=== PATIENT | male | born 1985 | race Caucasian/White ===

== ENCOUNTER 2020-02-09 20:31 | Emergency (ER) | payer MEDICAID, SELFPAY | END 2020-02-09 22:35 | PROVIDERS: PCP Internal Medicine | DX: Z53.21 Procedure and treatment not carried out due to patient leaving prior to being seen by health care provider (principal) ==

== ENCOUNTER 2020-02-17 14:58 | Emergency (ER) | payer MEDICAID, SELFPAY ==
[2020-02-17 15:04] VITALS: BP 133/95; PULSE 109; RESP 20; TEMP 36.6; O2SAT 97
--- NOTE | 2020-02-17 15:38 | DI.RAD_ITS ---
EXAM: XR PORTABLE CHEST AP CLINICAL HISTORY: cough x 3 months. TECHNIQUE: 2D digital imaging was performed. COMPARISON: No exams were available for comparison FINDINGS: LUNGS: Clear. No pleural abnormality seen. HEART: Normal. MEDIASTINUM: Normal. OTHER FINDINGS: None. IMPRESSION: No acute pulmonary findings. DATA REPOSITORY: RADIATION DOSE DELIVERED: Total DLP
--- NOTE | 2020-02-17 15:49 | ED.GENADUL_ITS ---
Discharge Plan Disposition Patient Disposition: AGAINST MEDICAL ADVICE Discharge Details Clinical Impression: Cough Primary Care Provider: Parag Farfan ED Provider: Qing Giron Home Meds and New Rx's Prescriptions: No Action No Known Home Meds RF: 0 Discharge Instructions Instructions: Acute Cough (ED) Additional Instructions: You are choosing to leave prior to completion of your labs. In particular, your provider, was concerned for potential pulmonary embolism based on your history and vital signs. This is pending. This can be a life-threatening etiology. A lso concern is that she will have an acute kidney injury which is changed from her baseline. Should be evaluated further. You may return anytime if you develop worsening symptoms or wish for completion of care. Otherwise, please follow-up with primary care as soon as possible to discuss results and for continued management Referrals: Parag Farfan MD [Primary Care Provider] - Discharge Data Discharge Date/Time-TO BE ENTERED AT DEPARTURE: 02/17/20 16:50 Medical Decision Making <INA Rader - Last Filed: 02/18/20 16:08> 34-year-old gentleman who denies past medical history presents to the ER for 3- month history of cough. Cough is mild in nature. During my evaluation he did clear his throat multiple times. He reports that the symptoms are worse if he is outside or in the cold. He does describe a mild amount of postnasal drip. Has not tried any gabv-ict-ceornuk medications. I believe this very well may be a mild cough reflex from postnasal drip, examination is not consistent with bronchitis or pneumonia. Given he does continue to have mild tachycardia I do believe that obtaining CBC, CMP and a d-dimer is reasonable to rule out infectious process and/or PE. Will obtain chest x-ray and COVID Chest x-ray is unremarkable. At time of signout CBC, CMP, d-dimer pending. I believe if his work-up is unremarkable that a trial of Claritin-D would be reasonable for symptomatic control. Medical Records Medical records reviewed: Yes I reviewed the patient's medical records. Imaging Data Radiologic Study: Attestation: I personally reviewed and interpreted this imaging study as follows: Imaging: X-Ray Radiologist's impression: Chest x-ray negative Lab Data Lab results reviewed: Yes I reviewed the patient's lab results. <INA Pino - Last Filed: 02/17/20 16:51> Care transition myself from Rafita Dick PA-C, with labs pending. In brief, patient's had a cough since October. Than tobacco use, patient is otherwise healthy per report. Cough is been notably worse outside in the cold. He has 1- COVID-19 testing. Patient was noted to be tachycardic. There was therefore concerned that the patient may have a pulmonary embolism and labs were obtained. Prior to completion of labs, patient wanted to leave AMA. He does have mental capacity. Just prior to him leaving the department, some of his blood work did come back. Patient does have a normal CBC. However I am concerned that his creatinine is 1.61 which is notably elevated from his previous findings. P missy is refusing any further care. D-dimer is pending. Patient is leaving the department AGAINST MEDICAL ADVICE. We did discuss the concern associated with his acute kidney injury. Patient was also advised that he needs to quarantine and he was tested today for COVID-19. We did offer patient to help establish new primary care and he laughed. Patient also left at the recommendation to quarantine. We did discuss quarantine potential risk associated with not completing this. HPI <INA Rader - Last Filed: 02/18/20 16:08> General Mode of arrival: ambulatory . Date/Time Provider Initiated Documentation: 02/17/20 14:58 . Limitations to Documentation: no limitations . Information obtained by: patient . HPI Narrative: This is a 34-year-old gentleman, no significant past medical history, does chew tobacco. He presents to the ER now for 3-month history of a mild dry cough that is simply not getting better with [id number]-[id number] medication. He denies fever, recent travel, sick exposure, chest pain, shortness of breath, skin rash, abdominal pain, nausea, vomiting, pain or swelling in his calves. He was tested for COVID in October and was negative. He reports that the cough seems to be worse in cooler weather or when he is outside. Denies ear pain, or nasal congestion. He does report sometimes he has a small and a phlegm in his throat that needs to be cleared. Related Data Home Medications Medication Instructions Recorded Confirmed Unknown [No Known Home Meds] 02/17/20 02/17/20 Allergies Allergy/AdvReac Type Severity Reaction Status Date / Time No Known Allergies Allergy Unverified 02/17/20 15:06 General Stated Complaint: RespSymp DAVID: 4 Review of Systems <INA Rader - Last Filed: 02/18/20 16:08> Constitutional Constitutional: Denies fatigue, Denies fever(s) and Denies headache(s) Eyes Eyes: Denies eye discharge ENT Ears, Nose, Mouth, and Throat: Denies headache(s), Denies nasal discharge and Denies sore throat Cardiovascular Cardiovascular: Denies chest pain and Denies dyspnea Respiratory Respiratory: Reports cough, Denies dyspnea and Denies wheezing Gastrointestinal Gastrointestinal: Denies abdominal pain, Denies nausea and Denies vomiting Musculoskeletal Musculoskeletal: Denies back pain Integumentary/Breasts Skin/Breast: Denies rash Neurologic Neurologic: Denies headache(s) Endocrine Endocrine: Denies fatigue Allergic/Immunologic Allergic/Immunologic: Denies wheezing PFSH <INA Rader - Last Filed: 02/18/20 16:08> Social History Smoking/Tobacco Use Status: Current every day Tobacco Type: smokeless tobacco Alcohol Intake: current Alcohol Intake frequency: a few times a month Drug use: Never Substance use type: does not use Do you feel safe at home: Yes Do you feel safe in your relationship?: Yes Exam <INA Rader - Last Filed: 02/18/20 16:08> Const General: cooperative, healthy appearing, comfortable and no acute distress Orientation: alert, awake and oriented x3 HENMT Head: normal to inspection, normocephalic and atraumatic Ears: external ears normal, TM's normal bilaterally and EAC's normal General nose exam: external nose normal and nares normal Face and sinus: normal facial exam Mouth: moist mucous membranes Throat: posterior oropharynx normal Eyes General: appearance normal, both eyes and all related structures Alignment and Position: alignment normal Periorbital: periorbital findings normal Eyelids: eyelids normal Conjunctivae: conjunctivae normal Sclera: sclerae normal Cornea: corneas normal Pupils: PERRL EOM: EOM intact bilaterally Direct ophthalmoscopy: normal light reflex Neck Neck: normal visual inspection, full ROM, no lymphadenopathy, no meningeal signs, trachea midline, supple and nontender Resp Effort & Inspection: normal respiratory effort, able to speak in complete sentences and cough Quality of cough: dry Auscultation: clear to auscultation bilaterally Cardio Rate: tachycardic (107) Rhythm: regular rhythm GI Palpation: soft and nontender Back/Spine/Pelvis Back: No back tenderness Skin General skin exam: no rashes or lesions noted Neuro General: patient alert, patient awake, moves all extremities and no focal motor deficits Sensory Exam: no sensory deficits noted Extrem General: normal to inspection, full ROM, capillary refill normal, no pedal edema and no calf tenderness Psych Appearance: grossly normal Mental Status: mental status grossly normal Course <INA Rader - Last Filed: 02/18/20 16:08> Vital Signs Vital signs: Vital Signs Temperature 36.6 C 02/17/20 15:04 Pulse 109 H 02/17/20 15:04 Respiratory Rate 20 02/17/20 15:04 Blood Pressure 133/95 H 02/17/20 15:04 Pulse Oximetry 97 02/17/20 15:04 Temperature 36.6 C 02/17/20 15:04 Temperature Source Oral 02/17/20 15:04 Pulse 109 H 02/17/20 15:04 Respiratory Rate 20 02/17/20 15:04 Respiratory Effort Non-Labored 02/17/20 15:08 Respiratory Depth Normal 02/17/20 15:08 Blood Pressure 133/95 H 02/17/20 15:04 Blood Pressure Position Sitting 02/17/20 15:04 Pulse Oximetry 97 02/17/20 15:04 Oxygen Delivery Method Room Air 02/17/20 15:04 Oxygen Flow Rate 0 02/17/20 15:04 Pain Level 0 02/17/20 15:04 Sign Out <INA Rader - Last Filed: 02/18/20 16:08> Sign Out Data: Sign Out Comment: CBC, CMP, d-dimer pending Last updated by Son Dick PA at 02/17/20 15:57
[2020-02-17 16:14] LABS: Abs Immature Grans 0.04 10^3/uL (0.0-0.06); Absolute Basophil Count 0.04 10^3/uL (0.0-0.2); Absolute Eosinophil Count 0.08 10^3/uL (0.0-0.7); Absolute Lymphocyte Count 1.23 10^3/uL (1.2-3.4); Absolute Monocyte Count 0.36 10^3/uL (0.1-0.8); Absolute Neutrophil Count 4.34 10^3/uL (1.2-6.7); Basophils % 0.7; Eosinophils % 1.3; HCT 44.4 % (40.0-50.0); HGB 15.3 g/dL (13.5-17.5); Immature Grans % 0.7; Lymphocytes % 20.2; MCH 29.9 pg (27.0-33.0); MCHC 34.5 % (32.0-36.0); MCV 86.9 fL (80-95); MPV 9.8 fL (8.0-11.0); Monocytes % 5.9; Neutrophils % 71.2; Nucleated RBC 0 %; Platelet Count 241 10^3/uL (130-400); RBC 5.11 10^6/uL (4.36-5.78); RDW-SD 40.6 fL; WBC 6.09 10^3/uL (4.4-10.8)
[2020-02-17 16:27] LABS: ALT 43 U/L (16-63); AST 22 U/L (15-37); Alkaline Phosphatase 61 U/L (46-116); Anion Gap 4.8 mmol/L (3-11); BUN 15 mg/dL (7-18); Bilirubin, Total 0.5 mg/dL (0.2-1.0); CO2 29.2 mmol/L (21.0-32.0); CREATININE 1.61 mg/dL (0.70-1.30); Calcium 8.9 mg/dL (8.5-10.1); Chloride 101 mmol/L (98-107); Estimated GFR 49.98 (mL/min/1.73m2); Glucose 112 mg/dL (74-106); Potassium 3.5 mmol/L (3.5-5.1); Sodium 135 mmol/L (136-145); Total Protein 7.2 g/dL (6.4-8.2)
[2020-02-17 16:44] LABS: D-Dimer < 65 ng/mlFEU (<500)
[2020-02-19 13:49] LABS: Patient Race White; SARS-CoV-2 RNA Undetected (Undetected); SARS-CoV-2 Specimen Source Nasopharynx
== END 2020-02-17 16:50 | disposition left against medical advice (07) ==
PROVIDERS: Physician Assistant; Emergency Provider Physician Assistant; PCP Internal Medicine
DX: R05 Cough (principal); R94.4 Abnormal results of kidney function studies; Z53.29 Procedure and treatment not carried out because of patient's decision for other reasons; Z11.59 Encounter for screening for other viral diseases
CPT/HCPCS: 36415; 80053; 99284; U0003; 71045; 85025; 85379

== ENCOUNTER 2020-03-26 08:52 | Outpatient (REF) | payer MEDICAID, SELFPAY ==
[2020-03-26 21:16] LABS: ALT 57 U/L (16-63); AST 25 U/L (15-37); Albumin 4.6 g/dL (3.4-5.0); Alkaline Phosphatase 79 U/L (46-116); Anion Gap 6.8 mmol/L (3-11); BUN 14 mg/dL (7-18); Bilirubin, Total 0.8 mg/dL (0.2-1.0); CO2 33.2 mmol/L (21.0-32.0); CREATININE 1.09 mg/dL (0.70-1.30); Calcium 9.3 mg/dL (8.5-10.1); Calculated LDL 128 mg/dL (<100); Chloride 103 mmol/L (98-107); Cholesterol 197 mg/dL (<200); Glucose 95 mg/dL (74-106); HDL Cholesterol 39 mg/dL (40-60); Potassium 4.3 mmol/L (3.5-5.1); Sodium 143 mmol/L (136-145); Total Protein 7.8 g/dL (6.4-8.2); Triglyceride 150 mg/dL (<150)
== END 2020-03-26 09:12 ==
LOC: NCHCN 08:52
PROVIDERS: PCP Internal Medicine; Visit Provider Physician Assistant
DX: N28.9 Disorder of kidney and ureter, unspecified (principal); Z13.220 Encounter for screening for lipoid disorders
CPT/HCPCS: 80053; 80061

== ENCOUNTER 2020-04-30 20:20 | Emergency (ER) | payer MEDICAID, SELFPAY ==
[2020-04-30 20:26] VITALS: BP 157/101; PULSE 110; RESP 18; TEMP 35.7; O2SAT 97
--- NOTE | 2020-04-30 20:34 | DI.RAD_ITS ---
EXAM: XR PORTABLE CHEST AP CLINICAL HISTORY: cough TECHNIQUE: 2D digital imaging was performed. COMPARISON: CR XR PORTABLE CHEST AP from 02/17/2020 FINDINGS: MEDIASTINUM: Normal. HEART: Normal. PULMONARY VASCULATURE: Normal. LUNGS: Clear. PLEURAL SPACE: No pleural effusion or pneumothorax. BONE:Within normal limits for the patient's age. OTHER FINDINGS:Normal. IMPRESSION: No acute pulmonary findings. DATA REPOSITORY: RADIATION DOSE DELIVERED:
[2020-04-30] MEDS: Normal Saline 1,000 ML 1000 ML IV (20:57)
[2020-04-30 21:04] LABS: Abs Immature Grans 0.02 10^3/uL (0.0-0.06); Absolute Basophil Count 0.05 10^3/uL (0.0-0.2); Absolute Eosinophil Count 0.13 10^3/uL (0.0-0.7); Absolute Lymphocyte Count 1.92 10^3/uL (1.2-3.4); Absolute Monocyte Count 0.45 10^3/uL (0.1-0.8); Absolute Neutrophil Count 4.86 10^3/uL (1.2-6.7); Basophils % 0.7; Eosinophils % 1.7; HCT 44.8 % (40.0-50.0); HGB 15.5 g/dL (13.5-17.5); Immature Grans % 0.3; Lymphocytes % 25.8; MCH 30.2 pg (27.0-33.0); MCHC 34.6 % (32.0-36.0); MCV 87.3 fL (80-95); MPV 10.7 fL (8.0-11.0); Monocytes % 6.1; Neutrophils % 65.4; Nucleated RBC 0 %; Platelet Count 245 10^3/uL (130-400); RBC 5.13 10^6/uL (4.36-5.78); RDW 12.5 % (11.8-14.1); RDW-SD 39.9 fL; WBC 7.43 10^3/uL (4.4-10.8)
[2020-04-30 21:18] LABS: ALT 34 U/L (16-63); AST 21 U/L (15-37); Albumin 4.4 g/dL (3.4-5.0); Alkaline Phosphatase 81 U/L (46-116); Anion Gap 10.4 mmol/L (3-11); BUN 15 mg/dL (7-18); Bilirubin, Total 0.5 mg/dL (0.2-1.0); CO2 27.6 mmol/L (21.0-32.0); CREATININE 1.26 mg/dL (0.70-1.30); Calcium 9.4 mg/dL (8.5-10.1); Chloride 102 mmol/L (98-107); Glucose 123 mg/dL (74-106); Potassium 3.2 mmol/L (3.5-5.1); Sodium 140 mmol/L (136-145); Total Protein 7.7 g/dL (6.4-8.2)
--- NOTE | 2020-04-30 21:20 | ED.GENADUL_ITS ---
Discharge Plan Disposition Patient Disposition: HOME Condition: Stable Discharge Details Clinical Impression: Post-viral cough syndrome Primary Care Provider: None,None ED Provider: Gwen Singh Home Meds and New Rx's Prescriptions: No Action budesonide-formoterol [Symbicort] 80-4.5 mcg/actuation Hfa Aerosol Inhaler 2 puff INHALATION BID RF: 0 Discharge Instructions Instructions: Acute Cough (ED) Additional Instructions: continue medications as directed drink at least 6-8 glasses of water to stay well hydrated follow up with pcp Sunday morning for recheck. Medical Decision Making IV established, given a liter of NS cxr, cmp, cbc ddimer, bnp sent. patient in no respiratory distress and hemodynamically stable, oxygenating well on room air, non toxic appearing Medical Records Medical records reviewed: Yes I reviewed the patient's medical records. Medical records narrative: Patient Name: NOELLE ESQUEDA #: [id number]: ER Ordering Provider: : REG ER Primary Care Provider: None,NoneDate of Exam: 04/30/20ex: M : 1985Age: 34 Exam(s) PROCEDURE INFORMATION: Exam: XR Chest, 1 View Exam date and time: 04/30/2020 8:51 PM Age: 34 years old Clinical indication: Other: Cough TECHNIQUE: Imaging protocol: XR of the chest Views: 1 view. COMPARISON: CR XR PORTABLE CHEST AP 02/17/2020 3:23 PM FINDINGS: Lungs: Unremarkable. No consolidation. Pleural space: Unremarkable. No pleural effusion. No pneumothorax. Heart/Mediastinum: Unremarkable. No cardiomegaly. Bones/joints: Unremarkable. IMPRESSION: 1. No acute findings. 2. No infiltrates. 3. No pleural effusions. 4. Stable exam since 02/17/2020. Lab Data Lab results reviewed: Yes I reviewed the patient's lab results. HPI General Mode of arrival: ambulatory . Date/Time Provider Initiated Documentation: 04/30/20 20:31 . Limitations to Documentation: no limitations . Information obtained by: patient . HPI Narrative: Patient presents for evaluation of cough he has had for over 2 months per his report. He was seen here in the emergency department and he left prior to completion of his work-up but there was no evidence of pneumonia pulmonary embolism or acute pathology. He states he has had 3 - Covid test. He did establish with primary care provider and was started on Symbicort. He states he continues to smoke tobacco but only smoked about a pack a month and only when he is drinking alcohol. He states he has had no fevers he is eating and drinking bowels and bladder functioning, no chest pain shortness of breath or wheezing. States in the morning upon awakening he does occasionally have greenish sputum. Related Data Home Medications Medication Instructions Recorded Confirmed budesonide-formoterol [Symbicort] 2 puff INHALATION BID 04/30/20 04/30/20 Allergies Allergy/AdvReac Type Severity Reaction Status Date / Time No Known Allergies Allergy Unverified 04/30/20 20:29 General Stated Complaint: RespSymp DAVID: 4 Review of Systems All systems reviewed & are unremarkable except as noted in HPI and below Cardiovascular Cardiovascular: Denies dyspnea and Denies dyspnea on exertion Respiratory Respiratory: Reports cough, Denies pain on inspiration, Denies pain with cough, Denies dyspnea, Denies dyspnea on exertion and Denies wheezing Allergic/Immunologic Allergic/Immunologic: Denies wheezing [facility] Social History Smoking/Tobacco Use Status: Current every day Tobacco Type: cigarettes and smokeless tobacco Smoking risk assessment performed?: Yes Alcohol Intake: current Alcohol Intake frequency: a few times a month Drug use: Never Substance use type: does not use Do you feel safe at home: Yes Do you feel safe in your relationship?: Yes Exam Const General: cooperative and comfortable Nutritional Appearance: overweight HENMT Head: normal to inspection, normocephalic and atraumatic Mouth: oral mucosae normal Resp Effort & Inspection: normal respiratory effort and cough Quality of cough: dry (Occasional) Auscultation: clear to auscultation bilaterally, no rales, no rhonchi and no wheezes Cardio Rate: tachycardic Rhythm: regular rhythm GI Inspection: normal to inspection Skin General skin exam: no rashes or lesions noted Neuro General: patient alert, patient awake and patient oriented x3 Extrem General: normal to inspection, full ROM and no pedal edema Course Vital Signs Vital signs: Vital Signs Temperature 35.7 C L 04/30/20 20:26 Pulse 110 H 04/30/20 20:26 Respiratory Rate 18 04/30/20 20:26 Blood Pressure 157/101 H 04/30/20 20:26 Pulse Oximetry 97 04/30/20 20:26 Temperature 35.7 C L 04/30/20 20:26 Temperature Source Skin 04/30/20 20:26 Pulse 110 H 04/30/20 20:26 Respiratory Rate 18 04/30/20 20:26 Respiratory Effort 04/30/20 20:30 Blood Pressure 157/101 H 04/30/20 20:26 Pulse Oximetry 97 04/30/20 20:26 Pain Level 5 04/30/20 20:26 Lab/Test Results Lab/Test Results: Laboratory Tests Range/Units 04/30/20 04/30/20 20:51 20:51 WBC (4.4-10.8) 10^3/uL 7.43 RBC (4.36-5.78) 10^6/uL 5.13 Hgb (13.5-17.5) g/dL 15.5 Hct (40.0-50.0) % 44.8 MCV (80-95) fL 87.3 MCH (27.0-33.0) pg 30.2 MCHC (32.0-36.0) % 34.6 RDW (11.8-14.1) % 12.5 Plt Count (130-400) 10^3/uL 245 MPV (8.0-11.0) fL 10.7 Immature Gran % 0.3 Neutrophils % 65.4 Lymphocytes % 25.8 Monocytes % 6.1 Eosinophils % 1.7 Basophils % 0.7 Nucleated RBC % % 0 Absolute Neutrophils (1.2-6.7) 10^3/uL 4.86 Absolute Lymphocytes (1.2-3.4) 10^3/uL 1.92 Absolute Monocytes (0.1-0.8) 10^3/uL 0.45 Absolute Eosinophils (0.0-0.7) 10^3/uL 0.13 Absolute Basophils (0.0-0.2) 10^3/uL 0.05 Sodium (136-145) mmol/L 140 Potassium (3.5-5.1) mmol/L 3.2 L Chloride (98-107) mmol/L 102 Carbon Dioxide (21.0-32.0) mmol/L 27.6 Anion Gap (3-11) mmol/L 10.4 BUN (7-18) mg/dL 15 Creatinine (0.70-1.30) mg/dL 1.26 Estimated GFR/1.73 m2 (mL/min/1.73m2) >= 60.00 Glucose (74-106) mg/dL 123 H Calcium (8.5-10.1) mg/dL 9.4 Total Bilirubin (0.2-1.0) mg/dL 0.5 AST (15-37) U/L 21 ALT (16-63) U/L 34 Alkaline Phosphatase (46-116) U/L 81 Total Protein (6.4-8.2) g/dL 7.7 Albumin (3.4-5.0) g/dL 4.4
[2020-04-30 21:25] LABS: NT-proBNP 27 pg/mL (<300)
--- NOTE | 2020-04-30 21:31 | DI.VRAD_ITS ---
PROCEDURE INFORMATION: Exam: XR Chest, 1 View Exam date and time: 04/30/2020 8:51 PM Age: 34 years old Clinical indication: Other: Cough TECHNIQUE: Imaging protocol: XR of the chest Views: 1 view. COMPARISON: CR XR PORTABLE CHEST AP 02/17/2020 3:23 PM FINDINGS: Lungs: Unremarkable. No consolidation. Pleural space: Unremarkable. No pleural effusion. No pneumothorax. Heart/Mediastinum: Unremarkable. No cardiomegaly. Bones/joints: Unremarkable. IMPRESSION: 1. No acute findings. 2. No infiltrates. 3. No pleural effusions. 4. Stable exam since 02/17/2020. Dictated and Authenticated by: Naeem Jacinto MD. Ordering:SHELBY Hidalgo MD
[2020-04-30 21:35] LABS: D-Dimer 117 ng/mlFEU (<500)
[2020-04-30 21:45] VITALS: BP 127/79; PULSE 89; RESP 16; O2SAT 98
== END 2020-04-30 21:55 | disposition home or self-care (01) ==
PROVIDERS: Emergency Provider Nurse Practitioner Acute Care
DX: R05 Cough (principal); F17.210 Nicotine dependence, cigarettes, uncomplicated
CPT/HCPCS: 36415; 80053; 96360; 99284; 71045; 83880; 85025; 85379

== ENCOUNTER 2020-05-17 17:14 | Emergency (ER) | payer MEDICAID, SELFPAY ==
[2020-05-17 17:20] VITALS: BP 157/109; PULSE 132; RESP 18; TEMP 36.7; O2SAT 98
--- NOTE | 2020-05-17 17:26 | W.ED.GENAD ---
Discharge Plan Disposition Patient Disposition: HOME Condition: Fair Discharge Details Clinical Impression: External hemorrhoid, thrombosed, Tachycardia, Elevated blood pressure reading Primary Care Provider: Tc Minaya ED Provider: Qing Giron Home Meds and New Rx's Prescriptions: New oxycodone 5 mg tablet 5 mg PO Q6H PRN (Reason: pain) Qty: 7 RF: 0 Continued budesonide-formoterol [Symbicort] 80-4.5 mcg/actuation Hfa Aerosol Inhaler 2 puff INHALATION BID RF: 0 Discharge Instructions Instructions: Oxycodone, Rapid Release (By mouth), Hydrocortisone/Pramoxine (Into the rectum), Hemorrhoids (ED) Additional Instructions: You have a thrombosed hemorrhoid on exam. This will need to be opened by general surgery. Please call tomorrow morning to schedule follow-up appointment.Number listed below. Please purchase sitz bath equipment at local pharmacy and it is 4-5 times per day. You may use 600 mg of ibuprofen every 6 hours and 1000 mg of Tylenol every 6 hours. You may apply the Proctofoam 5 times per day as needed. You may also use the oxycodone as prescribed. Please do not drive will take this medication. Take only as prescribed and keep in a safe place. Your blood pressure was quite elevated today as was your heart rate. Some of this may be associated with your discomfort as well as the caffeine drinks you are having today. I would like for you to follow-up with your primary care in the next 1 to 2 weeks for reevaluation of your vital signs. If you develop fever/chills, chest pain or other new/worsening symptoms please seek care urgently once again. Otherwise, please follow-up with general surgery this is possible regarding her hemorrhoids. Referrals: Tc Minaya [Primary Care Provider] - Sultana Hatfield MD [ [facility] STAFF PHYSICIAN] - Discharge Data Discharge Date/Time-TO BE ENTERED AT DEPARTURE: 05/17/20 20:30 Medical Decision Making Patient is a pleasant 34-year-old gentleman presenting today with chief complaint of rectal discomfort. He reports that he began noticing swelling near his rectum with discomfort 3 days ago. Denies any fevers or chills. No change in his bowel habits. Denies any change in urinary habits, no testicular pain. No trauma. States he has been using Preparation H with no relief of his symptoms. Has noted some blood after wiping. On exam, patient appears to have a thrombosed hemorrhoid. It is difficult to evaluate secondary to the patient's discomfort and him limiting the exam. Plan to apply topical anesthetic and give IM Dilaudid to help with discomfort. Patient does appear improved but continues to be quite uncomfortable. Patient was examined by myself as well as Dr. Overton. We did so in the prone position. Once were able to examine in the prone position, the hemorrhoid did appear much larger than I was expecting. Measure approximately 3 cm x 2 cm and is clearly thrombosed. We discussed at that point risk and benefit. Given the risk of bleeding, I am concerned regarding doing this in the department with no surgical backup. I feel that this being completed by general surgery would be more appropriate. I do not see any evidence of infection or need for this to be emergently completed and feels this can be completed as an outpatient. I have advised status, Tylenol and ibuprofen, Proctofoam. Will discharge patient home with oxycodone and instructions on how to use this. I did contact Dr. Hatfield and let her know about the patient and how uncomfortable he is. Not sure acetaminophen as possible. Return precautions were discussed. All his questions and concerns were addressed and he is in agreement this plan. [facility] General Mode of arrival: ambulatory. Date/Time Provider Initiated Documentation: 05/17/20 17:26. Limitations to Documentation: no limitations. Information obtained by: patient and RN notes reviewed. History of Present Illness 34 year old M presents to the emergency department with the chief complaint of rectal pain/swelling, described as severe, with intensity rated at 10. Quality is described as stabbing, and is localized to the buttocks. Patient reports no radiation. Patient started experiencing this day(s) (3) and it has been constant. No relieving factors improve symptom(s), Movement worsens symptoms . Patient notes denies fever/chills, loss of appetite, nausea/vomiting, rash and shortness of breath. Patient did receive the following treatments prior to arrival, NSAID Related Data Home Medications Medication Instructions Recorded Confirmed budesonide-formoterol [Symbicort] 2 puff INHALATION BID 04/30/20 05/17/20 oxycodone 5 mg PO Q6H PRN #7 tab 01/04/21 Previous Rx's Medication Instructions Recorded oxycodone 5 mg PO Q6H PRN #7 tab 05/17/20 Allergies Allergy/AdvReac Type Severity Reaction Status Date / Time No Known Allergies Allergy Unverified 05/17/20 17:24 General Stated Complaint: Abd Prob DAVID: 3 Review of Systems Constitutional Constitutional: Reports as per HPI, Denies chills, Denies fatigue, Denies fever(s) and Denies headache(s) ENT Ears, Nose, Mouth, and Throat: Denies headache(s) Cardiovascular Cardiovascular: Reports as per HPI, Denies chest pain and Denies dyspnea Respiratory Respiratory: Reports as per HPI, Denies cough and Denies dyspnea Gastrointestinal Gastrointestinal: Reports as per HPI Genitourinary Genitourinary: Denies system reviewed and no additional complaints, except as documented (patient denies any change in urinary habits) Musculoskeletal Musculoskeletal: Reports as per HPI and Denies back pain Integumentary/Breasts Skin/Breast: Reports as per HPI and Denies rash Neurologic Neurologic: Reports as per HPI and Denies headache(s) Endocrine Endocrine: Denies fatigue [facility] Social History Smoking/Tobacco Use Status: Current every day Tobacco Type: cigarettes and smokeless tobacco Smoking risk assessment performed?: Yes Alcohol Intake: current Alcohol Intake frequency: a few times a month Drug use: Occasionally Substance use type: marijuana Do you feel safe at home: Yes Do you feel safe in your relationship?: Yes Exam Const General: cooperative, healthy appearing, comfortable, no acute distress and well developed Nutritional Appearance: well nourished and obese Orientation: alert and awake [facility] Head: normal to inspection Mouth: moist mucous membranes Resp Effort & Inspection: normal respiratory effort, able to speak in complete sentences and no respiratory distress Auscultation: clear to auscultation bilaterally, no rales, no rhonchi and no wheezes Cardio Rate: regular rate Rhythm: regular rhythm Heart Sounds: S1 normal and S2 normal GI Inspection: normal to inspection Palpation: soft, no hepatosplenomegaly and nontender Rectal Exam: hemorrhoids (3 cm x 2 cm external thrombosed hemorrhoid right side of anus) Back/Spine/Pelvis Back: no CVA tenderness Skin General skin exam: no rashes or lesions noted and other (thombosed hemorrhoid) Neuro General: patient alert and patient awake Cognition: normal cognition Speech: speech normal Gait: antalgic Psych Appearance: grossly normal and well kempt Mental Status: mental status grossly normal Speech and Movement: speech and movement normal Course Vital Signs Vital signs: Vital Signs Temperature 36.7 C 05/17/20 17:20 Pulse 132 H 05/17/20 17:20 Respiratory Rate 18 05/17/20 17:20 Blood Pressure 157/109 H 05/17/20 17:20 Pulse Oximetry 98 05/17/20 17:20 Temperature 36.7 C 05/17/20 17:20 Temperature Source Temporal Artery Scan 05/17/20 17:20 Pulse 132 H 05/17/20 17:20 Respiratory Rate 18 05/17/20 17:20 Respiratory Effort Non-Labored 05/17/20 17:23 Blood Pressure 157/109 H 05/17/20 17:20 Blood Pressure Position Sitting 05/17/20 17:20 Pulse Oximetry 98 05/17/20 17:20 Oxygen Delivery Method Room Air 05/17/20 17:20 Oxygen Flow Rate 0 05/17/20 17:20 Pain Level 10 05/17/20 17:20
[2020-05-17] MEDS: Lidocaine/Epinephri/Tetracaine Topical Gel 3 ML TP (18:23)
[2020-05-17] MEDS: HYDROmorphone 2 MG/ML VIAL 1 MG IM (18:24)
--- NOTE | 2020-05-17 19:54 | NUR.NOTE ---
Nursing Note: Patient has a large hemrohoid that started 3 days ago. Has been applying cream to the area w/o relief. Significant 9/10 pain.
[2020-05-17 20:01] VITALS: BP 156/111; PULSE 117; RESP 18; TEMP 36.3; O2SAT 96
[2020-05-17 20:18] VITALS: PULSE 106; O2SAT 97
--- NOTE | 2020-05-18 07:09 | NUR.NOTE ---
access to [facility] patients name for [facility] Nursing Note:
== END 2020-05-17 20:30 | disposition home or self-care (01) ==
PROVIDERS: Emergency Provider Physician Assistant; PCP Physician Assistant
DX: K64.5 Perianal venous thrombosis (principal); R03.0 Elevated blood-pressure reading, without diagnosis of hypertension; R00.0 Tachycardia, unspecified
CPT/HCPCS: 96372; 99284; J3490

== ENCOUNTER 2020-05-18 08:52 | Outpatient (CLI) | payer MEDICAID, SELFPAY ==
[2020-05-19 19:28] LABS: COVID-19 RT-PCR UVMMC Result Negative (Negative)
== END 2020-05-18 09:12 ==
PROVIDERS: PCP Physician Assistant; Visit Provider Surgery
DX: Z11.59 Encounter for screening for other viral diseases (principal); Z01.818 Encounter for other preprocedural examination
CPT/HCPCS: U0003

== ENCOUNTER 2020-05-18 09:04 | Day surgery (SDC) | payer MEDICAID, SELFPAY ==
[2020-05-18 09:50] VITALS: BP 132/96; PULSE 83; RESP 16; TEMP 36.4; O2SAT 96
[2020-05-18] MEDS: Lactated Ringers 1,000 ML 80 ML IV (10:05)
[2020-05-18] MEDS: metroNIDAZOLE 500 MG/100 ML BAG 100 MG IVPB (10:30)
--- NOTE | 2020-05-18 10:57 | NUR.NOTE ---
0915: Pt. arrived at [facility] ambulating into unit slowly and reporting 9/10 discomfort from hemorrhoid. Pt. requesting to avoid sitting, pt. immediately changed and positioned on stretcher. Pt. using cell phone. Call vasquez within reach. 1030: Pt. lying on stretcher, playing Save the truck on his cell phone. IV abx started, pt. states he is 10/10 for discomfort, pt. asking to get off stretcher and go into BR. aware of pt's discomfort. Pt. ambulated to BR, voided and assisted back to recliner, pillows provided in recliner to assist with discomfort. Pt. reports he is more comfortable than on stretcher. Call vasquez within reach. 1100: in room. Nursing Note:
--- NOTE | 2020-05-18 11:09 | W.PM.HP.N ---
Date of service: 05/18/20 Time of Service: 11:09 Assessment and Plan Assessment and plan (1) External hemorrhoid, thrombosed: Status: Acute History of Present Illness Consults Consult date: 05/18/20 Requesting physician: Sultana Hatfield Narrative: Patient is a 34-year-old male who was seen as a referral from the ED from [address] Hatfield saw the patient this morning please see her office note for complete past medical details. He has been having diarrhea and has developed a thrombosed external hemorrhoid. And he is here today for excision. Informed consent is obtained explaining risks and benefits of the procedure including but not limited to: Bleeding, infection, pneumonia, DVT, complications of anesthesia, recurrence, and damage to sphincters including stenosis or loss of control. Past medical history significant for asthma. He only uses an albuterol inhaler as needed. He chews tobacco. He occasionally will smoke if he is out drinking. He has never had surgery or anesthesia before. He has no known drug allergies. [facility] Medical History Asthma Surgical History No pertinent past surgical history Social History Smoking/Tobacco Use Status: Current every day Tobacco Type: cigarettes and smokeless tobacco Smoking risk assessment performed?: Yes Alcohol Intake: current Alcohol Intake frequency: a few times a month Drug use: Occasionally Substance use type: marijuana Details: alcohol: t-14, marijuana: t-7, hit of dabs Current gender identity: male Do you feel safe at home: Yes Do you feel safe in your relationship?: Yes Meds Home Medications and Allergies Home Medications Medication Instructions Recorded Confirmed Type budesonide-formoterol [Symbicort] 2 puff INHALATION BID 04/30/20 05/18/20 History oxycodone 5 mg PO Q6H PRN #7 tab 05/17/20 05/18/20 Rx [id number] 2 tab PO ONCE 05/18/20 05/18/20 History [Excedrin Extra Strength] ibuprofen 800 mg PO Q6H PRN 05/18/20 05/18/20 History Allergies Allergy/AdvReac Type Severity Reaction Status Date / Time No Known Allergies Allergy Unverified 05/18/20 09:27 Results Last Vital Signs Temp 36.4 C L 05/18/20 09:50 Pulse 83 05/18/20 09:50 Resp 16 05/18/20 09:50 BP 132/96 H 05/18/20 09:50 Pulse Ox 96 05/18/20 09:50 COVID-19 Screening Have you, or household traveled for leisure in last 14 days?: No Had IN PERSON contact w/suspected or confirmed C-19 person: No
[2020-05-18] MEDS: Bupivacaine 0.25% Pres-Free 30 ML VIAL (12:00)
[2020-05-18] MEDS: EPINEPHrine 1 MG/ML AMP pres-free (12:00)
[2020-05-18] MEDS: Lidocaine 2% Jelly 6 ML SYR (12:11)
[2020-05-18 12:31] VITALS: BP 121/66; PULSE 100; RESP 15; TEMP 36.5; O2SAT 95
[2020-05-18 12:35] VITALS: BP 110/59; PULSE 100; RESP 22; TEMP 36.5; O2SAT 96
[2020-05-18] MEDS: Gelatin SPONGE 12-7 MM PKT 1 EACH TP (12:36)
[2020-05-18 12:40] VITALS: BP 109/66; PULSE 95; RESP 26; TEMP 36.5; O2SAT 97
[2020-05-18 12:55] VITALS: BP 113/73; PULSE 95; RESP 19; TEMP 36.6; O2SAT 97
[2020-05-18] MEDS: Acetaminophen 500 MG TAB 1000 MG PO (13:32)
[2020-05-18] MEDS: Ketorolac 30 MG/ML VIAL IVP (13:33)
[2020-05-18 13:35] VITALS: BP 121/85; PULSE 91; RESP 16; TEMP 36.3; O2SAT 98
--- NOTE | 2020-05-18 14:02 | W.PM.DSUDISC ---
Discharge Plan Disposition Patient Disposition: HOME Condition: Good Discharge Details Reason For Visit: thrombosed hemorrhoid Attending Provider: Argenis Whitaker Primary Care Provider: Tc Minaya Home Meds and New Rx's Prescriptions: New bisacodyl [Dulcolax (bisacodyl)] 5 mg tablet,delayed release (DR/EC) 5 mg PO DAILY Qty: 30 RF: 3 ibuprofen 600 mg tablet 600 mg PO Q6H PRNQty: 60 RF: 5 dibucaine 1 % ointment 1 applic FL QID PRNQty: 56.7 RF: 3 oxycodone 5 mg capsule 5 mg PO Q6H PRNQty: 14 RF: 0 Continued budesonide-formoterol [Symbicort] 80-4.5 mcg/actuation Hfa Aerosol Inhaler 2 puff INHALATION BID RF: 0 oxycodone 5 mg tablet 5 mg PO Q6H PRN (Reason: pain) Qty: 7 RF: 0 ibuprofen 200 mg Tablet 800 mg PO Q6H PRNRF: 0 Excedrin Extra Strength 250-250-65 mg Tablet 2 tab PO ONCE RF: 0 Discharge Instructions Additional Instructions: Home Care Instructions after Rectal Surgery Pain control: Ibuprofen 600mg 6hrs (take w/ food. Do not take on an empty stomach) and Tylenol 1000mg by mouth (ibuprofen 400-600mg) every 8 hours. Do not take if you have ulcers or sensitivity to aspirin. Do not take Tylenol if you have hepatitis or liver failure. Alternate the Tylenol and ibuprofen. Take pain meds continuously for the first 72hrs. After 72hrs, you can take as needed if you are having pain. How to prevent constipation: The first bowel movement after surgery will be painful. Do not let yourself get constipated. Stay on a stool softener for the first two weeks after surgery. It is recommended that you use a fiber supplement (Metamucil, Citrucel) daily (1 tablespoon in 8 oz of water). If you do not have a bowel movement daily, use Milk of Magnesia or Miralax. A prescription stool softner (dulcolax) was called into [facility] in [facility]. You were also prescribed a topical medication for pain- Dibucaine. You may have bleeding or drainage after rectal surgery; especially when you move your bowels. Use a sanitary napkin to collect the discharge. If you are passing large clots or having to change the pad more than every 4 hours, call the clinic or go to the ER. You may experience spasms in the rectal muscles. This is normal after surgery and last for about two weeks. They can become more intense with bowel movements. The best remedy is to soak in a bathtub of plain warm water- no Epsom salts, essential oil or soap. It takes about 10 minutes further the spasm to stop. You may want to do this after BM as well. You do have packing in place. This will pass on its own. It is ok to shower. Avoid soap on the surgical area. Use a pillow to sit on. Follow a mild bland diet. Avoid alcohol, spicy food, citrus, and tomatoes. Avoid strenuous activity (running, jogging, and power walking, swimming, weight lifting) for two weeks. No lifting over 20 pounds for 2 weeks. Activity:: see above Remove Dressings/Wound Care:: 24 hours Shower/Bathe:: 24 hours Diet:: Normal Diet DS: Diagnosis Discharge Diagnosis (1) External hemorrhoid, thrombosed: Status: Acute
--- NOTE | 2020-05-24 12:45 | W.PM.OP ---
Date of service: 05/18/20 Time of Service: 12:20 Operative Note Operative Note DATE OF PROCEDURE: 05/18/20 PRE-OP DIAGNOSIS: thrombosed internal hemorrhoid POST-OP DIAGNOSIS: other (and int. hemorrhoids ) PROCEDURE: I & D x1 of internal hemorrhoid banding x1 of int hemorrhoid SURGEON: Argenis Whitaker ANESTHESIA: local and epidural ESTIMATED BLOOD LOSS: 3 PATHOLOGY: none sent COMPLICATIONS: None Patient was transported to: same day Patient's condition: stable Procedure Description: Luis is a 34-year-old male who was seen at the [facility] with Dr. Hatfield today. She saw him in the clinic. He has an acute thrombosed internal hemorrhoid. He would not tolerate excision in the office and is brought to the OR for excision. Informed consent is obtained explaining risks and benefits of the procedure including but not limited to: Bleeding, infection, pneumonia, blood clot. Complications from the anesthetic. Chronic pain or chronic numbness. Damage to the sphincters including stenosis or loss of control. And certainly recurrence. he understands he is going to have pain for approximately 2 weeks and the best way to relieve this is by soaking in warm water. Rectal evaluation was done prior to the patient going back to the OR. Patient is brought to the operative room suite. Anesthesia was ministered per the department of anesthesia. Patient is placed in the prone position with all bony surfaces padded. He did receive preop IV Flagyl. Areas prepped and draped in the usual sterile fashion using a Betadine scrub solution. Timeout is performed. Quarter percent Marcaine with epinephrine is used for local anesthetization cessation. He is in the prone position. He has a large thrombosed complex at the 5 o'clock position. This is open sharply with a 15 blade. Large amount of clot is expressed. Any redundant or hemorrhoidal tissue is removed. This is closed with a 2-0 Vicryl in a running fashion. There is no signs of any fissures. There is no masses. He has good tone. On anal exam he also has another large internal hemorrhoid at the 7 o'clock position. This was banded with 2 bands. There is no bleeding at the completion of the case. Lidocaine impregnated Gelfoam was inserted into the rectum. And sterile dressings are applied. Patient tolerated the procedure well and transferred back to same-day surgery in stable condition. He will be discharged home today with explicit instructions and prescriptions and will follow up in the clinic in 1 week's time This document was created using [employer] voice activated software and may contain errors.
== END 2020-05-18 14:37 | disposition home or self-care (01) ==
PROVIDERS: PCP Physician Assistant; Visit Provider Surgery
PROC: (CPT 46221; principal; 2020-05-18 10:15)
DX: K64.5 Perianal venous thrombosis (principal); K64.8 Other hemorrhoids
CPT/HCPCS: 46221; 46083; J0171; J1885; J2001; J2250

== ENCOUNTER 2020-05-19 22:03 | Emergency (ER) | payer MEDICAID, SELFPAY ==
[2020-05-19 22:09] VITALS: BP 130/98; PULSE 112; RESP 20; TEMP 36.5; O2SAT 96
--- NOTE | 2020-05-19 22:22 | ED.GENADUL_ITS ---
Discharge Plan Disposition Patient Disposition: HOME Condition: Stable Discharge Details Clinical Impression: Pain, rectal Primary Care Provider: Tc Minaya ED Provider: Eduardo Purdy Home Meds and New Rx's Prescriptions: New lidocaine HCl 2 % jelly in applicator 1 applic topical TID PRN (Reason: pain) Qty: 250 RF: 0 Continued oxycodone 5 mg tablet 5 mg PO Q6H MDD 4 per day PRN (Reason: pain) Qty: 14 RF: 0 dibucaine 1 % ointment 1 applic DC QID PRN (Reason: rectal discomfort) Qty: 56.7 RF: 3 budesonide-formoterol [Symbicort] 80-4.5 mcg/actuation Hfa Aerosol Inhaler 2 puff INHALATION BID RF: 0 oxycodone 5 mg tablet 5 mg PO Q6H PRN (Reason: pain) Qty: 7 RF: 0 ibuprofen 200 mg Tablet 800 mg PO Q6H PRNRF: 0 Excedrin Extra Strength 250-250-65 mg Tablet 2 tab PO ONCE RF: 0 bisacodyl [Dulcolax (bisacodyl)] 5 mg tablet,delayed release (DR/EC) 5 mg PO DAILY Qty: 30 RF: 3 ibuprofen 600 mg tablet 600 mg PO Q6H PRNQty: 60 RF: 5 Discharge Instructions Care Plan Goals: your bleeding was likely from a collection of blood from the surgery and your stitches appear normal follow up with your surgeon as scheduled if severe worsening pain, bleeding that doesn't stop or fevers return to the emergency department Medical Decision Making 34 yo male comes in with a painful bowel movement and some blood with the bowel mvoement per the patient. He had a thombosed external hemorrhoid removed surgically yesterday with Dr. Whitaker and was d/c'd home. He states the pharmacy didn't have the topical lidocaine he was prescribed so hasn't had any yet. He had his first bowel movement since the surgery and had pain with it in the rectal area and noticed blood as well in the stool so came here. He has no abdominal tenderness on exam. On rectal exam no bleeding on glove during exam and no visible blood seen. He has several stitches in place where the hemorrhoid was removed with surrounding bruising and no erythema or tenderness. I suspect this was a hematoma and pain is post op from the surgery, no evidence of continued bleeding. Will d/c with lidocaine and advised to f/u with pcp, return precautions given Differential Diagnosis Differential Diagnosis: post op pain, hematoma HPI General Mode of arrival: ambulatory . Date/Time Provider Initiated Documentation: 05/19/20 22:04 . Limitations to Documentation: no limitations . Information obtained by: patient . History of Present Illness 34 year old M presents to the emergency department with the chief complaint of rectal pain, described as moderate, and it has been constant. No relieving factors improve symptom(s), No exacerbating factors reported . Patient did receive the following treatments prior to arrival, none Related Data Home Medications Medication Instructions Recorded Confirmed budesonide-formoterol [Symbicort] 2 puff INHALATION BID 04/30/20 05/19/20 oxycodone 5 mg PO Q6H PRN #7 tab 05/17/20 05/19/20 Excedrin Extra Strength 2 tab PO ONCE 05/18/20 05/19/20 bisacodyl [Dulcolax (bisacodyl)] 5 mg PO DAILY #30 tab 05/18/20 05/19/20 ibuprofen 600 mg PO Q6H PRN #60 tab 05/18/20 05/19/20 ibuprofen 800 mg PO Q6H PRN 05/18/20 05/19/20 oxycodone 5 mg tablet 5 mg PO Q6H PRN #14 tab MDD 4 per 05/18/20 05/19/20 day dibucaine 1 % rectal ointment 1 applic DC QID PRN #56.7 g 05/19/20 05/19/20 lidocaine HCl 1 applic TOPICAL TID PRN #250 ml 05/19/20 Previous Rx's Medication Instructions Recorded oxycodone 5 mg PO Q6H PRN #7 tab 05/17/20 bisacodyl [Dulcolax (bisacodyl)] 5 mg PO DAILY #30 tab 05/18/20 ibuprofen 600 mg PO Q6H PRN #60 tab 05/18/20 oxycodone 5 mg tablet 5 mg PO Q6H PRN #14 tab MDD 4 per 05/18/20 day dibucaine 1 % rectal ointment 1 applic DC QID PRN #56.7 g 05/19/20 lidocaine HCl 1 applic TOPICAL TID PRN #250 ml 05/19/20 Allergies Allergy/AdvReac Type Severity Reaction Status Date / Time No Known Allergies Allergy Unverified 05/19/20 22:13 General Stated Complaint: Vascular DAVID: 3 Review of Systems All systems reviewed & are unremarkable except as noted in HPI and below Constitutional Constitutional: Denies chills and Denies fever(s) Cardiovascular Cardiovascular: Denies chest pain and Denies dyspnea Respiratory Respiratory: Denies cough and Denies dyspnea Gastrointestinal Gastrointestinal: Denies abdominal pain, Denies nausea and Denies vomiting Musculoskeletal Musculoskeletal: Denies joint swelling [facility] Medical History (Updated 05/19/20 @ 22:25 by Eduardo Purdy MD) Asthma Surgical History No pertinent past surgical history Social History Smoking/Tobacco Use Status: Current every day Tobacco Type: cigarettes and smokeless tobacco Smoking risk assessment performed?: Yes Alcohol Intake: current Alcohol Intake frequency: a few times a month Drug use: Occasionally Substance use type: marijuana Details: alcohol: t-14, marijuana: t-7, hit of dabs Current gender identity: male Do you feel safe at home: Yes Do you feel safe in your relationship?: Yes Exam Const General: no acute distress Orientation: alert HENMS Head: normal to inspection Ears: external ears normal General nose exam: external nose normal Mouth: moist mucous membranes Eyes General: appearance normal, both eyes and all related structures Neck Neck: normal visual inspection Resp Effort & Inspection: normal respiratory effort and able to speak in complete sentences Cardio Rate: regular rate GI Palpation: soft, not rigid and nontender Rectal Exam: No mass Skin General skin exam: no rashes or lesions noted Neuro General: patient alert and patient oriented x3 Extrem General: normal to inspection Psych Mental Status: mental status grossly normal Course Vital Signs Vital signs: Vital Signs Temperature 36.5 C 05/19/20 22:09 Pulse 112 H 05/19/20 22:09 Respiratory Rate 20 05/19/20 22:09 Blood Pressure 130/98 H 05/19/20 22:09 Pulse Oximetry 96 05/19/20 22:09 Temperature 36.5 C 05/19/20 22:09 Temperature Source Temporal Artery Scan 05/19/20 22:09 Pulse 112 H 05/19/20 22:09 Respiratory Rate 20 05/19/20 22:09 Respiratory Effort 05/19/20 22:16 Blood Pressure 130/98 H 05/19/20 22:09 Blood Pressure Position Supine 05/19/20 22:09 Pulse Oximetry 96 05/19/20 22:09 Oxygen Delivery Method Room Air 05/19/20 22:09 Oxygen Flow Rate 0 05/19/20 22:09 Pain Level 7 05/19/20 22:09
[2020-05-19] MEDS: Lidocaine 2% Jelly 6 ML SYR TP ×3 (22:27)
== END 2020-05-19 22:30 | disposition home or self-care (01) ==
PROVIDERS: Emergency Provider Emergency Medicine; PCP Physician Assistant
DX: K62.89 Other specified diseases of anus and rectum (principal); G89.18 Other acute postprocedural pain; K62.5 Hemorrhage of anus and rectum; Y83.6 Removal of other organ (partial) (total) as the cause of abnormal reaction of the patient, or of later complication, without mention of misadventure at the time of the procedure
CPT/HCPCS: 99283

== ENCOUNTER 2020-06-01 19:15 | Emergency (ER) | payer MEDICAID, SELFPAY ==
[2020-06-01 19:20] VITALS: BP 150/107; PULSE 100; RESP 18; TEMP 36.7; O2SAT 100
--- NOTE | 2020-06-01 19:36 | ED.GENADUL_ITS ---
Discharge Plan Disposition Patient Disposition: HOME Condition: Stable Discharge Details Clinical Impression: Elevated blood pressure reading, Allergic reaction Primary Care Provider: Tc Minaya ED Provider: Qing Giron Home Meds and New Rx's Prescriptions: New prednisone 20 mg tablet 40 mg PO DAILY Qty: 6 RF: 0 Continued methadone 40 mg tablet,soluble 40 mg PO DAILY RF: 0 dibucaine 1 % ointment 1 applic MO QID PRN (Reason: rectal discomfort) Qty: 56.7 RF: 3 budesonide-formoterol [Symbicort] 80-4.5 mcg/actuation Hfa Aerosol Inhaler 2 puff INHALATION BID RF: 0 Excedrin Extra Strength 250-250-65 mg Tablet 2 tab PO ONCE RF: 0 bisacodyl [Dulcolax (bisacodyl)] 5 mg tablet,delayed release (DR/EC) 5 mg PO DAILY Qty: 30 RF: 3 ibuprofen 600 mg tablet 600 mg PO Q6H PRNQty: 60 RF: 5 lidocaine HCl 2 % jelly in applicator 1 applic topical TID PRN (Reason: pain) Qty: 250 RF: 0 Discharge Instructions Instructions: General Allergic Reaction (ED) Additional Instructions: Your rash is most consistent with an allergic reaction. I am concerned that this may be associated with your change in methadone. Please discuss this further with your methadone dosing provider before dosing tomorrow. Please take the prednisone as prescribed. If you develop swelling in your mouth, throat, shortness of breath, difficulty breathing, worsening rash or other new/worsening symptoms please seek care urgently once again. I would also like you to follow- up with your primary care to discuss your elevated blood pressure as well as potential allergy testing. Referrals: Tc Minaya [Primary Care Provider] - Medical Decision Making Patient is a pleasant 34-year-old male presented with chief complaint of rash. He reports that the rash began a few days ago and has progressively been worsening. States that this began shortly after his first dosing of p.o. methadone. He states that he has been on methadone pills historically with good success. However coming states that he is now on the liquid form and since taking this has developed worsening symptoms in the past 2 days. States that he has diffuse itching. He has rash on his face and a sore throat. He denies any fevers or chills. No difficulty swallowing. Denies any shortness of breath or difficulty breathing. On exam, patient is resting comfortably. He is notably hypertensive blood pressure 150/107. He has been noted to be elevated historically. Currently asymptomatic with this high blood pressure. I will have him follow-up further with his primary care to have this read checked and discuss potential diagnosis of hypertension. He has a red urticarial rash to his face. No intraoral lesions. Normal posterior oropharynx. This does not appear infectious. Lungs are clear. No rash noted elsewhere. His history and exam is most concerning for allergic reaction, likely to the change in methadone. Patient will be started on prednisone. He has been using Benadryl as well as creams to help with symptomatic management without much success. He can continue to use to help with symptoms as needed. Advised that he discuss this further with the provider at the [facility] tomorrow prior to dosing. First dose of prednisone given here. All of his questions and concerns were addressed, he is in agreement with this plan HPI General Date/Time Provider Initiated Documentation: 06/01/20 19:36 . Related Data Home Medications Medication Instructions Recorded Confirmed budesonide-formoterol [Symbicort] 2 puff INHALATION BID 04/30/20 05/31/20 Excedrin Extra Strength 2 tab PO ONCE 05/18/20 05/19/20 bisacodyl [Dulcolax (bisacodyl)] 5 mg PO DAILY #30 tab 05/18/20 05/31/20 ibuprofen 600 mg PO Q6H PRN #60 tab 05/18/20 05/31/20 dibucaine 1 % rectal ointment 1 applic MO QID PRN #56.7 g 05/19/20 05/19/20 lidocaine HCl 1 applic TOPICAL TID PRN #250 ml 05/19/20 05/31/20 methadone 40 mg soluble tablet 40 mg PO DAILY 05/31/20 05/31/20 prednisone 40 mg PO DAILY #6 tab 06/01/20 Previous Rx's Medication Instructions Recorded bisacodyl [Dulcolax (bisacodyl)] 5 mg PO DAILY #30 tab 05/18/20 ibuprofen 600 mg PO Q6H PRN #60 tab 05/18/20 dibucaine 1 % rectal ointment 1 applic MO QID PRN #56.7 g 05/19/20 lidocaine HCl 1 applic TOPICAL TID PRN #250 ml 05/19/20 prednisone 40 mg PO DAILY #6 tab 06/01/20 Allergies Allergy/AdvReac Type Severity Reaction Status Date / Time No Known Allergies Allergy Unverified 05/31/20 10:07 General Stated Complaint: RashLesion DAVDI: 3 Review of Systems Constitutional Constitutional: Reports as per HPI, Denies chills, Denies fever(s) and Denies headache(s) Eyes Eyes: Reports as per HPI, Denies eye discharge and Denies irritation ENT Ears, Nose, Mouth, and Throat: Reports as per HPI and Denies headache(s) Cardiovascular Cardiovascular: Reports as per HPI, Denies chest pain and Denies dyspnea Respiratory Respiratory: Reports as per HPI, Denies cough, Denies dyspnea, Denies stridor and Denies wheezing Gastrointestinal Gastrointestinal: Reports as per HPI, Denies abdominal pain, Denies change in bowel habits, Denies nausea and Denies vomiting Integumentary/Breasts Skin/Breast: Reports as per HPI and Denies rash Neurologic Neurologic: Reports as per HPI and Denies headache(s) Allergic/Immunologic Allergic/Immunologic: Denies wheezing [facility] Medical History (Updated 06/01/20 @ 19:56 by INA Pino) Asthma Surgical History No pertinent past surgical history Social History Smoking/Tobacco Use Status: Current every day Tobacco Type: cigarettes and smokeless tobacco Smoking risk assessment performed?: Yes Alcohol Intake: current Alcohol Intake frequency: a few times a month Drug use: Occasionally Substance use type: marijuana Details: alcohol: t-14, marijuana: t-7, hit of dabs Current gender identity: male Do you feel safe at home: Yes Do you feel safe in your relationship?: Yes Exam Const General: cooperative, healthy appearing, comfortable, no acute distress, well developed and well groomed Nutritional Appearance: well nourished and overweight Orientation: alert and awake [facility] Head: normal to inspection, normocephalic and atraumatic Ears: hearing grossly normal bilaterally, external ears normal and TM's normal bilaterally General nose exam: external nose normal and nares normal Face and sinus: abnormal facial exam (Urticarial rash spread around face, spares neck), sinuses nontender and face symmetric Mouth: oral mucosae normal, lip normal, tongue normal, oropharynx normal and moist mucous membranes Teeth and gingiva: dentition normal Throat: posterior oropharynx normal, tonsils normal and uvula midline Eyes General: appearance normal, both eyes and all related structures Neck Neck: normal visual inspection, full ROM, no lymphadenopathy and no meningeal signs Resp Effort & Inspection: normal respiratory effort, able to speak in complete sentences and no respiratory distress Auscultation: clear to auscultation bilaterally, no rales, no rhonchi and no wheezes Cardio Rate: regular rate Rhythm: regular rhythm Heart Sounds: S1 normal and S2 normal Skin Rashes: rashes noted Neuro General: patient alert and patient awake Cognition: normal cognition Speech: speech normal Gait: normal gait Psych Appearance: grossly normal and well kempt Mental Status: mental status grossly normal Speech and Movement: speech and movement normal Course Vital Signs Vital signs: Vital Signs Temperature 36.7 C 06/01/20 19:20 Pulse 100 H 06/01/20 19:20 Respiratory Rate 18 06/01/20 19:20 Blood Pressure 150/107 H 06/01/20 19:20 Pulse Oximetry 100 06/01/20 19:20 Temperature 36.7 C 06/01/20 19:20 Temperature Source Temporal Artery Scan 06/01/20 19:20 Pulse 100 H 06/01/20 19:20 Respiratory Rate 18 06/01/20 19:20 Respiratory Effort Non-Labored 06/01/20 19:23 Blood Pressure 150/107 H 06/01/20 19:20 Blood Pressure Position Sitting 06/01/20 19:20 Pulse Oximetry 100 06/01/20 19:20 Oxygen Delivery Method Room Air 06/01/20 19:20 Oxygen Flow Rate 0 06/01/20 19:20 Pain Level 5 06/01/20 19:20
[2020-06-01 19:52] VITALS: BP 140/105; PULSE 100; RESP 18; TEMP 36.7; O2SAT 100
[2020-06-01] MEDS: predniSONE 20 MG TAB 40 MG PO (20:07)
== END 2020-06-01 20:02 | disposition home or self-care (01) ==
PROVIDERS: Emergency Provider Physician Assistant; PCP Physician Assistant
DX: R21 Rash and other nonspecific skin eruption (principal); L29.8 Other pruritus; T40.3X5A Adverse effect of methadone, initial encounter; F11.20 Opioid dependence, uncomplicated; R03.0 Elevated blood-pressure reading, without diagnosis of hypertension
CPT/HCPCS: 99283; J7512

== ENCOUNTER 2021-07-01 12:19 | Emergency (ER) | payer MEDICAID, SELFPAY ==
[2021-07-01 12:22] VITALS: BP 136/90; PULSE 105; RESP 14; TEMP 36.7; O2SAT 99
--- NOTE | 2021-07-01 13:19 | ED.GENADUL_ITS ---
Discharge Plan Disposition Patient Disposition: HOME Condition: Stable Discharge Details Clinical Impression: External hemorrhoid Primary Care Provider: Tc Minaya ED Provider: Troy Henry Home Meds and New Rx's Prescriptions: New hydrocortisone [Anusol-HC] 2.5 % cream with perineal applicator 1 applic UT BID-QID PRN (Reason: hemorrhoids) Qty: 30 2RF diclofenac potassium 50 mg tablet 50 mg PO TID PRN (Reason: pain) Qty: 10 0RF docusate sodium 100 mg capsule 100 mg PO BID Qty: 14 0RF Discharge Instructions Instructions: Thrombosed Hemorrhoid (ED) Additional Instructions: You may also apply ice to the area of discomfort to help with pain control. It is important that you do not sit on the toilet for extended periods of time as this will worsen your condition and avoid straining with bowel movement. You have been placed on the referral list to general surgery but if you do not hear from them please feel free to call their office for arrangement of follow-up visit. Referrals: [facility] [Provider Group] - 5 days Medical Decision Making Patient presenting to the emergency department with chief complaint of hemorrhoids. Patient has history of thrombosed hemorrhoids in the past with surgical excision. Patient states pain and discomfort feels similar. Patient denies any other associated symptoms. Physical exam shows a mostly external thrombosed hemorrhoid at the anal opening. Did contact general surgery, recommended patient be placed on Anusol, stool softener, ice, and pain control. Patient also placed upon surgical follow-up with for follow-up next week for assessment and consideration of hemorrhoidectomy. [facility] Mode of arrival: ambulatory . Date/Time Provider Initiated Documentation: 07/01/21 12:45 . Limitations to Documentation: no limitations . Information obtained by: patient and old records reviewed . History of Present Illness 35 year old M presents to the emergency department with the chief complaint of Rectal pain due to hemorrhoids, described as moderate and similar to prior episodes, with intensity rated at 7. Quality is described as burning and aching, and is localized to the buttocks (anus). Patient reports no radiation. Patient started experiencing this day(s) (16) and it has been constant. improves with No relieving factors improve symptom(s), No exacerbating factors reported . Patient notes no other symptoms.. Patient did receive the following treatments prior to arrival, NSAID Related Data Home Medications Medication Instructions Recorded Confirmed diclofenac potassium 50 mg tablet 50 mg PO TID PRN #10 tab 07/01/21 docusate sodium 100 mg capsule 100 mg PO BID #14 cap 07/01/21 hydrocortisone 2.5 % topical cream 1 applic UT BID-QID PRN #30 g 07/01/21 with perineal applicator (Anusol-HC) Previous Rx's Medication Instructions Recorded diclofenac potassium 50 mg tablet 50 mg PO TID PRN #10 tab 07/01/21 docusate sodium 100 mg capsule 100 mg PO BID #14 cap 07/01/21 hydrocortisone 2.5 % topical cream 1 applic UT BID-QID PRN #30 g 07/01/21 with perineal applicator (Anusol-HC) Allergies Allergy/AdvReac Type Severity Reaction Status Date / Time No Known Allergies Allergy Unverified 07/01/21 12:24 General Stated Complaint: GenMedical DAVID: 3 Review of Systems Constitutional Constitutional: Denies chills and Denies fever(s) Gastrointestinal Gastrointestinal: Reports as per HPI, Denies abdominal pain, Denies hematochezia and Denies diarrhea Genitourinary Genitourinary: Reports system reviewed and no additional complaints, except as documented Integumentary/Breasts Skin/Breast: Reports system reviewed and no additional complaints, except as documented and Denies rash Hematologic/Lymphatic Hematologic/Lymphatic: Reports system reviewed and no additional complaints, except as documented PFSH All Active Problems (Updated 07/01/21 @ 13:34 by Troy Henry NP) External hemorrhoid (Acute) Opioid abuse (Acute) Obesity, Class II, BMI 35-39.9 (Acute) Internal hemorrhoid (Acute) Medical History (Updated 07/01/21 @ 13:34 by Troy Henry NP) Asthma Surgical History No pertinent past surgical history Social History Smoking/Tobacco Use Status: Current every day Tobacco Type: cigarettes and smokeless tobacco Smoking risk assessment performed?: Yes Alcohol Intake: current Alcohol Intake frequency: 3 or more drinks per day Drug use: Current Sobriety Substance use type: does not use Current gender identity: male Do you feel safe at home: Yes Do you feel safe in your relationship?: Yes Exam Const General: cooperative and no acute distress Orientation: alert, awake and oriented x3 Resp Effort & Inspection: normal respiratory effort and able to speak in complete sentences Auscultation: clear to auscultation bilaterally Cardio Rate: regular rate Rhythm: regular rhythm Heart Sounds: S1 normal and S2 normal GI Inspection: normal to inspection Palpation: soft and nontender Auscultation: normal bowel sounds Rectal Exam: No fecal impaction, hemorrhoids (Obvious thrombus), No laceration and other (Offered RN vice president industrial relations but patient deferred) Neuro General: patient alert, patient awake and patient oriented x3 Course Vital Signs Vital signs: Vital Signs Temperature 36.7 C 07/01/21 12:22 Pulse 105 H 07/01/21 12:22 Respiratory Rate 14 07/01/21 12:22 Blood Pressure 136/90 07/01/21 12:22 Pulse Oximetry 99 07/01/21 12:22 Temperature 36.7 C 07/01/21 12:22 Temperature Source Temporal Artery Scan 07/01/21 12:22 Pulse 105 H 07/01/21 12:22 Respiratory Rate 14 07/01/21 12:22 Respiratory Effort Non-Labored 07/01/21 12:26 Respiratory Depth Normal 07/01/21 12:26 Respiratory Pattern Normal 07/01/21 12:26 Blood Pressure 136/90 07/01/21 12:22 Blood Pressure Position Sitting 07/01/21 12:22 Pulse Oximetry 99 07/01/21 12:22 Oxygen Delivery Method Room Air 07/01/21 12:22 Oxygen Flow Rate 0 07/01/21 12:22 Pain Level 7 07/01/21 12:22 PAWSS Have you Been Recently Intoxicated or Drunk Within the Last 30 days?: Yes Have you Ever Experienced Previous Episodes of Alcohol Withdrawal?: No Have you ever Experienced Withdrawal Seizures?: No Have you ever Experienced Delirium Tremens(DT)s?: No Have you ever undergone Alcohol Rehabilitation Treatment (i.e, inpt ot outpatient treatment programs)?: No Have you ever Experienced Blackouts?: No Have you ever Combined Alcohol with other Downers within the last 90 days?: No Have you ever Combined Alcohol with any other Substance of Abuse during the last 90 days?: No Positive Blood Alcohol level on Presentation? [PCS.BAL]: No Evidence of Increased Autonomic Activity (i.e. HR>120, tremor, sweating, agitation, nausea)?: No Result: 1
== END 2021-07-01 13:48 | disposition home or self-care (01) ==
PROVIDERS: Emergency Provider Nurse Practitioner Family; PCP Physician Assistant
DX: K64.4 Residual hemorrhoidal skin tags (principal)
CPT/HCPCS: 99283

== ENCOUNTER 2022-01-18 12:11 | Emergency (ER) | payer MEDICAID, SELFPAY ==
[2022-01-18 12:19] VITALS: BP 111/76; PULSE 85; RESP 17; TEMP 36.9; O2SAT 99
[2022-01-18 12:28] VITALS: BP 111/73; PULSE 82
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
[2022-01-18] MEDS: HYDROmorphone 2 MG/ML SYR 1 MG IM (15:14)
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
[2022-01-18 15:22] LABS: Source Nasal/Nares
[2022-01-18 15:56] LABS: COVID-19 PCR Negative (Negative)
== END 2022-01-18 15:49 | disposition home or self-care (01) ==
PROVIDERS: Emergency Provider Physician Assistant; PCP Physician Assistant
DX: S42.021A Displaced fracture of shaft of right clavicle, initial encounter for closed fracture (principal); F17.210 Nicotine dependence, cigarettes, uncomplicated; F17.290 Nicotine dependence, other tobacco product, uncomplicated; Z20.822 Contact with and (suspected) exposure to COVID-19; S60.511A Abrasion of right hand, initial encounter; G89.11 Acute pain due to trauma; M25.562 Pain in left knee; M25.571 Pain in right ankle and joints of right foot; V28.4XXA Motorcycle driver injured in noncollision transport accident in traffic accident, initial encounter
CPT/HCPCS: 87635; 96372; 99284; 70450; 71045; 72125; 73000; 73030; J1170

== ENCOUNTER 2022-01-19 10:48 | Day surgery (SDC) | payer MEDICAID, SELFPAY ==
[2022-01-19] VITALS (9 sets, daily range): BP systolic 114–133; BP diastolic 77–89; PULSE 74–86; RESP 12–76; TEMP 36–36.8; O2SAT 95–98; BMI 32.5
--- NOTE | 2022-01-19 10:10 | W.ANESPRE ---
General Info Date of Service Date Performed: 01/19/22 Height: 6 ft Weight: 108.862 kg Body Mass Index (BMI): 32.5 Surgical Procedure: Operation Date: 01/19/22 13:10 Proposed Procedure Side Surgeon p Shoulder ORIF Clavicle Right Rakesh Beltran MD Meds Allergies and Home Medications Allergies Allergy/AdvReac Type Severity Reaction Status Date / Time methadone Allergy Severe facial Verified 01/19/22 11:21 swelling Home Medication Medication Instructions Recorded aspirin 81 mg tablet,delayed 81 mg PO DAILY Prevent blood clot 01/19/22 release 14 days #14 tabs naproxen 250 mg tablet 250 - 500 mg PO BID PRN #40 tabs 01/19/22 oxycodone 5 mg tablet 5 - 10 mg PO Q4H PRN moderate to 01/19/22 severe pain #18 tabs PFSH Active Problems Active Problems: Problem Status Onset Code Closed right clavicular fracture 01/18/22 S42.001A Thrombosed external hemorrhoid K64.5 Opioid abuse F11.10 Obesity, Class II, BMI 35-39.9 E66.9 Internal hemorrhoid K64.8 Medical History Medical History Asthma Surgical History Surgical History No pertinent past surgical history Tobacco Smoking/Tobacco Use Status: Current every day Tobacco Type: cigarettes and smokeless tobacco Alcohol Alcohol Intake: current Alcohol intake frequency: 3 or more drinks per day Alcohol type: beer Substance Use Substance use: Current Sobriety Substance use type: does not use Vital Signs and Lab Results Vital Signs Most Recent Vital Signs in EMR: Temp Pulse Resp BP Pulse Ox 36.8 C 86 16 124/88 98 01/19/22 10:57 01/19/22 10:57 01/19/22 10:57 01/19/22 10:57 01/19/22 10:57 Lab Results Blood Type / Crossmatch: No Data to Display Complete Blood Count: No Data to Display Complete Metabolic Panel: No Data to Display Liver Function Panel: No Data to Display Coagulation Panel: No Data to Display Cardiac Panel: No Data to Display Arterial Blood Gas: No Data to Display Venous Blood Gas: No Data to Display Pancreas Panel: No Data to Display Thyroid Panel: No Data to Display Infectious Disease: Coronavirus (COVID-19)(PCR) Negative (Negative) 01/18/22 15:10 Coronavirus 2019 Source Nasal/Nares 01/18/22 15:10 Blood Cultures: No Data to Display Toxicology Panel: No Data to Display Anesthesia Assessment and Plan Anesthesia History Personal History: Unknown Anesthesia History Family History: No Family History of Anesthesia Complications Exercise Tolerance Exercise Tolerance: Metabolic Equivalents>4 Cardiac & Pulmonary Exam Cardiac Exam: Normal S1/S2 Heart Sounds Pulmonary Exam: Clear Bilateral Breath Sounds Implantable Cardiac Device Does patient have a Pacemaker or an ICD?: No Airway Exam Known Difficult Airway: No Mallampati Class: 4 Mouth Opening: Narrow (< 3cm) Thyromental Distance: Less than 3 cm Neck Range of Motion: Full ROM Neck Circumference: Normal Teeth Condition: Normal Dentition ASA Classification ASA Score: ASA 2 Emergency Case?: No NPO Status NPO Status: NPO Clears >2 hours, Solids >8 hours Anesthesia Plan Resuscitation Status: Full Code Anesthesia Technique: General Anesthesia Airway Planned: Endotracheal Tube Pain Management: Surgeon and patient request nerve block Monitors Used: Standard Monitors Preoperative Comments:: 36 yo male for clavicle ORIF. Sig PMHx: asthma (hasn't used inhaler in very long while), smoker/ETOH daily, occ cannabis, recent cocaine use, previous opioid abuse history (not on methadone/suboxone). Previous Anes: spinal for hemorrhoid, noted that he was ? dyring spinal placement (had 2 midaz and 30 ketamine).
--- NOTE | 2022-01-19 11:06 | W.PM.DSUDISC ---
Discharge Plan Disposition Patient Disposition: HOME Condition: Stable Discharge Details Reason For Visit: Right clavicle fracture Attending Provider: Rakesh Beltran Primary Care Provider: Tc Mianya Home Meds and New Rx's Prescriptions: New naproxen 250 mg tablet 250 - 500 mg PO BID PRNQty: 40 0RF Rx Instructions: take with a meal oxycodone 5 mg tablet 5 - 10 mg PO Q4H MDD 30 mg PRN (Reason: moderate to severe pain) Qty: 18 0RF aspirin 81 mg tablet,delayed release (DR/EC) 81 mg PO DAILY 14 Days Qty: 14 0RF Discharge Instructions Additional Instructions: Surgery: Right clavicle ORIF Activity: Non-weightbearing right upper extremity. Use sling whenever up and about or out of the home for 6 weeks. Light use right hand. No lifting, reaching, or carrying any real weight. A physical therapy prescription will be provided separately in the office at follow up if needed. Avoid any nicotine/tobacco use to optimize healing. Possible return to light duty work around 6-8 weeks. Prescriptions: Aspirin 81 mg take 1 daily to prevent a blood clot for 2 weeks Naproxen 250 mg take 1-2 every 12 hours with a meal as needed for moderate pain Oxycodone 5 mg take 1-2 every 4-6 hours as needed for severe pain You may use [id number] Tylenol (acetaminophen) as needed for mild pain. These pain medications may be taken all at once or in different combinations as needed. Also, recommend Colace (docusate) as a stool softener as surgery and pain medicine cause constipation. You may try [id number] diphenhydramine (Benadryl) 25-50 mg nightly as a sleep aid Dressings: Leave dressing in place until follow-up. Keep clean and dry at all times. Follow-up: 10-[address] Beltran Let us know right away if you develop any redness, drainage, fevers, chest pain, or trouble breathing. Do not drink alcohol or drive for at least 24 hours after anesthesia. Please call the office during business hours with any questions or concerns. Discharge Orders Discharge Orders: Discharge Order (Routine); Ordered 01/19/22 Ordered By: Rakesh Beltran DS: Diagnosis Discharge Diagnosis (1) Closed right clavicular fracture: Status: Acute
[2022-01-19] MEDS: Lactated Ringers 1,000 ML 30 ML IV (12:36)
[2022-01-19] MEDS: fentaNYL 100 MCG/2 ML VIAL IVP (12:40)
--- NOTE | 2022-01-19 12:45 | DI.RAD_ITS ---
Exam(s) XR CLAVICLE RT LIMITED 1V EXAM: XR CLAVICLE RT LIMITED 1V CLINICAL HISTORY: fractured right clavicle TECHNIQUE: 2D and realtime digital imaging was performed. CONTRAST MATERIAL: Refer to procedure report. COMPARISON: CR XR CLAVICLE RT from 01/18/2022 FINDINGS: Fluoroscopy was provided for Dr. Beltran during the performance of a reduction and internal fixation o f the right clavicular fracture. Please refer to the procedure report for complete details. Ka,r=1.1 mGy IMPRESSION: RADIATION DOSE DELIVERED:
[2022-01-19] MEDS: ceFAZolin 2 GM/50 ML BAG IVPB (13:31)
[2022-01-19] MEDS: Bupivacaine 0.5% Pres-Free W/EPI 30 ML VIAL (14:07)
--- NOTE | 2022-01-19 14:19 | W.ANESNERVE ---
Nerve Block Single Injection Procedure Date and Time Date Performed: 01/19/22 Procedure Start: 13:07 Location Where Procedure Performed Procedure Location: Day Surgery Unit Reason Performed: Postoperative Analgesia Requesting Provider: Rakesh Beltran Timeout Performed Timeout Performed: Yes Monitoring Used ECG, Blood Pressure and SpO2 Sterility Sterility: Hand Hygiene, Surgical Cap, Surgical Mask, Sterile Gloves and Chlorhexidine Sedation Given During Procedure Sedation Given (Indicate Dose Given): Versed IV (2 mg + 2 mg + 1 mg, also had fent 50 mcg from DSU prior to starting. ) Dose:: 5 mg Patient Mental Status Patient Mental Status: Sedate with meaningful communication Nerve Block 1st Nerve Block: Laterality: Right Block Type: Superficial Cervical Plexus Needle / Catheter Used: 100mm SonoPlex II Local Anesthetic Bolus (Indicate Dose Given): Lidocaine used for local infiltration of skin, Injected in 3-5ml increments after negative blood aspiration and Bupivacaine 0.375% Dose:: 10 mL Additives (Indicate Dose Given): Precedex Dose:: 40 mcg Ultrasound: Sterile probe cover and gel used Ultrasound Image Saved?: Yes Nerve Stimulator: Not Used Paresthesia: None Procedure Tolerated: No Complications Procedure Outcome: Successful Performed By: oth Other (not listed above): YAMILE Lee Supervised By: Azael Gutierres
--- NOTE | 2022-01-19 15:25 | W.PM.OP ---
Operative Note Operative Note DATE OF PROCEDURE: 01/19/22 PRE-OP DIAGNOSIS: Right displaced clavicle fracture PROCEDURE: Right clavicle open reduction internal fixation, CPT #61382 SURGEON: Rakesh Beltran POLE INCISOR OPERATOR: Cici Wilkerson ANESTHESIA TYPE: Local By Surgeon, General LMA/ETT and Primary Nerve Block Refer to Anesthesia Record ESTIMATED BLOOD LOSS: 10 COMPLICATIONS: None Patient was transported to: PACU Implants/Explants Operation Date: 01/19/22 13:10 <No data on this case meets the specified criteria> Additional Implants/Explants: Synthes 2.7mm VA LCP clavicle plate system, LC2 superior midshaft, with 1x 2.7mm metaphyseal cortex and 3x 2.7mm locking screws medial and lateral to fracture. Single 2.7mm lag screw. Indications: Please see complete medical record for details. Procedure Description: In the operating room, general anesthesia was induced. The patient was positioned supine on the operating room table. All bony prominences were well-padded. Preoperative antibiotics were administered. The clavicle was prepped and draped in the usual sterile fashion. The correct patient, procedure, and side of the procedure were all verified prior to incision. The planned incision was pre-injected with 30 cc of a 50:50 mixture of bupivacaine and lidocaine containing epinephrine. The fracture site was approached raising full-thickness flaps down to bone. The incision was extended medially laterally as necessary. Care was taken to preserve soft tissue attachments. The fracture ends were identified. Bone forceps were used to provisionally obtain reduction. A lag screw was placed laterally from anterior to posterior to secure the large anterior segmental piece and lateral clavicle. Medially, there were 3 fragments this anterior piece, medial clavicle, and a posterior smaller segmental piece that was not amenable to lag fixation so instead a suture tape cerclage was passed around these fragments and secured with Nice knot. An appropriate precontoured superior plate was applied and adjusted to accommodate fracture and fit patient anatomy. It was compressed to bone with a cortex screw on either side of the fracture followed by sequentially placing additional 3 locking screws medially and laterally. The plate and fractures were all inspected and demonstrated excellent stability and fixation strength. AP, cephalic tilt, and [id number] fluoroscopy confirmed appropriate fracture reduction and hardware placement. The wound was copiously irrigated with normal saline. Deep and subcutaneous tissue was closed in a full-thickness watertight fashion with buried interrupted 2-0 Monocryl. Subcuticular layer was closed using running 3-0 Monocryl. Skin glue was applied over the incision followed by a Mepilex Band-Aid. The patient awoke from anesthesia without complication and was transferred to the recovery room in a stable condition.
--- NOTE | 2022-01-19 16:02 | W.ANESPOSTOP ---
Postoperative Evaluation Date, Time and Location Date Performed: 01/19/22 Time Performed: 16:03 Patient Location: PACU Vital Signs Most Recent Imported Vital Signs: Most Recent Vital Signs Temp Pulse Resp BP Pulse Ox 36.6 C 75 14 115/82 96 01/19/22 15:54 01/19/22 15:54 01/19/22 15:54 01/19/22 15:54 01/19/22 15:54 Pain Score Most Recent Pain Score: Most Recent Pain Score Pain Level 0 01/19/22 15:54 Assessment Mental Status: Awake (Alert & Oriented to Patient Baseline) Airway and Respiratory Function: Patent airway with normal (patient baseline) respiratory exam Cardiovascular Function: Hemodynamically Stable Hydration Status: Adequately Hydrated Nausea & Vomiting: No Nausea or Vomiting Pain: Pt. Denies Any Pain Peripheral Nerve Block: Regional nerve block not resolved at time of post operative discharge
[2022-01-19] MEDS: HYDROmorphone 2 MG/ML SYR IVP (16:05)
[2022-01-19] MEDS: oxyCODONE 5 MG TAB PO (16:26)
== END 2022-01-19 16:56 | disposition home or self-care (01) ==
PROVIDERS: PCP Physician Assistant; Visit Provider Student in an Organized Health Care Education/Training Program
PROC: (CPT 23515; principal; 2022-01-19 13:00)
DX: S42.021A Displaced fracture of shaft of right clavicle, initial encounter for closed fracture (principal); F17.210 Nicotine dependence, cigarettes, uncomplicated; X58.XXXA Exposure to other specified factors, initial encounter
CPT/HCPCS: 23515; 76942; 73000; J0690; J1100; J1170; J1885; J2250; J2405; J2704; J3010

== ENCOUNTER 2022-02-26 10:21 | Emergency (ER) | payer MEDICAID, SELFPAY ==
[2022-02-26 10:27] VITALS: BP 122/102; PULSE 94; RESP 18; TEMP 36.6; O2SAT 99
--- NOTE | 2022-02-26 10:45 | DI.RAD_ITS ---
Exam(s) XR CLAVICLE RT EXAM: XR CLAVICLE RT CLINICAL HISTORY: reinjury of recent fx and surgery TECHNIQUE: 2D digital imaging was performed of the right clavicle. Two images were obtained. AP and axial views were obtained. COMPARISON: CR XR CLAVICLE RT from 01/18/2022 XA XR CLAVICLE RT LIMITED 1V from 01/19/2022 FINDINGS: BONES: There is again seen a sideplate and screws transfixing the right clavicular fracture. No wiseman ge in appearance of the orthopedic hardware or fracture components is seen. No new fracture or dislo cation is seen. No bony destructive lesion is seen. JOINTS: No dislocation present. SOFT TISSUE: Normal IMPRESSION: 1. Stable postoperative changes of the right clavicle. 2. No acute abnormality. DATA REPOSITORY: RADIATION DOSE DELIVERED:
--- NOTE | 2022-02-26 11:14 | DI.VRAD_ITS ---
PROCEDURE INFORMATION: Exam: XR Right Clavicle, Complete Exam date and time: 02/26/2022 10:57 AM Age: 36 years old Clinical indication: Other: Reinjury of recent FX and surgery; Prior surgery; Surgery date: <1 month TECHNIQUE: Imaging protocol: Radiologic exam of the Right clavicle. Complete exam. Views: Any number of views. COMPARISON: XA XR CLAVICLE RT LIMITED 1V 01/19/2022 12:51 PM FINDINGS: Bones/joints: Plate and screw fixation shaft of the right clavicle. No fracture line identified. Soft tissues: Normal. IMPRESSION: Plate and screw fixation shaft of the right clavicle Dictated and Authenticated by: Sana Pack MD. Ordering:KRYSTAL Cline MD
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
[2022-02-26] MEDS: oxyCODONE 5 mg/Acetaminophen 325 mg TAB 1 TAB PO (11:37)
== END 2022-02-26 12:00 | disposition home or self-care (01) ==
PROVIDERS: Emergency Provider Physician Assistant; PCP Physician Assistant
DX: S40.011A Contusion of right shoulder, initial encounter (principal); J45.909 Unspecified asthma, uncomplicated; F17.210 Nicotine dependence, cigarettes, uncomplicated; W51.XXXA Accidental striking against or bumped into by another person, initial encounter
CPT/HCPCS: 99283; 73000; 99284

== ENCOUNTER 2022-03-13 10:09 | Emergency (ER) | payer MEDICAID, SELFPAY ==
--- NOTE | 2022-03-13 10:24 | W.ED.FU ---
Follow Up Plan: Per nursing, Pt left the ED prior to triage.
== END 2022-03-13 10:14 | disposition left before discharge ==
LOC: ER 10:12
PROVIDERS: Emergency Provider Student in an Organized Health Care Education/Training Program; PCP Physician Assistant
DX: Z53.21 Procedure and treatment not carried out due to patient leaving prior to being seen by health care provider (principal)

== ENCOUNTER 2022-03-28 14:55 | Emergency (ER) | payer MEDICAID, SELFPAY ==
[2022-03-28 14:57] VITALS: BP 128/86; PULSE 105; RESP 18; TEMP 36.8; O2SAT 100
--- NOTE | 2022-03-28 15:13 | ED.GENADUL_ITS ---
Discharge Plan Disposition Patient Disposition: HOME Condition: Stable Discharge Details Chief Complaint: Orthopedic Clinical Impression: Closed right clavicular fracture Primary Care Provider: Tc Minaya ED Provider: Troy Henry Home Meds and New Rx's Prescriptions: No Action No Known Home Meds Discharge Instructions Instructions: Clavicle Fracture (ED) Additional Instructions: You may use the sling for comfort measures and please perform daily range of motion activities to prevent frozen shoulder. It is very important that you make your appointment with orthopedist for reassessment and further discussion of treatment options for your clavicle fracture. Referrals: [facility] [Provider Group] (Please call the office tomorrow afternoon for arrangement of follow-up) Discharge Data Discharge Date/Time-TO BE ENTERED AT DEPARTURE: 03/28/22 16:07 Medical Decision Making Patient presenting to the emergency department for chief complaint of right shoulder injury. Patient states that 2 months ago he broke his collarbone and it has been deformed since. He states limited movement of right shoulder and pain and discomfort. Patient denies all other symptom. Patient in no obvious signs of distress, physical exam is unremarkable except for obvious deformity to right mid clavicle. When further questioning patient he states that there has been no change in his condition in over a month. Review of patient's past medical records patient has missed appointments with orthopedist for follow-up on his clavicle fracture. Patient has had multiple x-rays just does not feel that he has addressed his fracture. Thoroughly discussed with patient that he will need to follow-up with orthopedist for further discussion of his injury given that there is no acute change in his problem and that he will need specialty care for definitive care of his condition. At this time I see no emergent or worrisome findings for exam or based patient's history of illness. Patient states clear understanding to follow orthopedist. Patient given a sling for comfort and encouraged to continue use of [id number] medications along with rest and daily gentle range of motion activities. After discussion of diagnosis and plan of care patient has no further needs, questions, or concerns and states clear understanding to return to the emergency department for any worsening symptoms. This documentation was generated using [employer] system, please disregard any oddities of phrase or misspellings. HPI General Mode of arrival: ambulatory . Date/Time Provider Initiated Documentation: 03/28/22 15:04 . Limitations to Documentation: no limitations . Information obtained by: patient, RN notes reviewed and old records reviewed . History of Present Illness 36 year old M presents to the emergency department with the chief complaint of right shoulder injury, described as moderate, with intensity rated at 9. Quality is described as aching, and is localized to the right and upper extremity. Patient reports no radiation. Patient started experiencing this month(s) (2) and it has been constant. No relieving factors improve symptom(s), No exacerbating factors reported . Patient notes no other symptoms.. Patient did receive the following treatments prior to arrival, NSAID Related Data Home Medications Medication Instructions Recorded Confirmed Unknown [No Known Home Meds] 03/28/22 03/28/22 Allergies Allergy/AdvReac Type Severity Reaction Status Date / Time methadone Allergy Severe facial Verified 03/28/22 15:02 swelling General Stated Complaint: Orthopedic DAVID: 4 Review of Systems Narrative: 8 systems reviewed and unremarkable except what is marked below. Musculoskeletal Musculoskeletal: Reports as per HPI, Reports deformity and Reports limited range of motion Integumentary/Breasts Skin/Breast: Denies wounds PFSH All Active Problems Encephalopathy (Acute) Demand ischemia (Acute) Respiratory failure with hypoxia (Acute) Hydronephrosis (Acute) Aspiration pneumonia (Acute) Polysubstance abuse (Acute) Overdose (Acute) Altered mental status (Acute) Elevated troponin (Acute) No-show for appointment (Acute) Closed right clavicular fracture (Acute 01/18/22) Thrombosed external hemorrhoid (Acute) Opioid abuse (Acute) Obesity, Class II, BMI 35-39.9 (Acute) Internal hemorrhoid (Acute) Medical History Asthma Surgical History No pertinent past surgical history Social History Smoking/Tobacco Use Status: Current every day Tobacco Type: cigarettes and smokeless tobacco Smoking risk assessment performed?: Yes Substance use type: marijuana and crack/cocaine Current gender identity: male Do you feel safe at home: Yes Exam Const General: cooperative, no acute distress and not ill appearing Orientation: alert, awake and oriented x3 HENMT Mouth: moist mucous membranes Resp Effort & Inspection: normal respiratory effort, able to speak in complete sentences and no respiratory distress Cardio Rate: regular rate Rhythm: regular rhythm Pulses: normal peripheral pulses Skin General skin exam: no rashes or lesions noted Neuro General: patient alert, patient awake, patient oriented x3, moves all extremities and no focal motor deficits Sensory Exam: no sensory deficits noted Extrem General: normal exam except as noted Right upper extremity: shoulder/upper arm Details: abnormal to inspection Details: clavicle deformity, tenderness Location: of the clavicle Laterality: mid-shaft, axillary nerve sensory function normal and abnormal ROM Details: pain with active ROM; no abrasions and no lacerations Course Vital Signs Vital signs: Vital Signs Temperature 36.8 C 03/28/22 14:57 Pulse 105 H 03/28/22 14:57 Respiratory Rate 18 03/28/22 14:57 Blood Pressure 128/86 03/28/22 14:57 Pulse Oximetry 100 03/28/22 14:57 Temperature 36.8 C 03/28/22 14:57 Temperature Source Temporal Artery Scan 03/28/22 14:57 Pulse 105 H 03/28/22 14:57 Respiratory Rate 18 03/28/22 14:57 Respiratory Effort Non-Labored 03/28/22 15:00 Blood Pressure 128/86 03/28/22 14:57 Blood Pressure Position Sitting 03/28/22 14:57 Pulse Oximetry 100 03/28/22 14:57 Oxygen Delivery Method Room Air 03/28/22 14:57 Oxygen Flow Rate 0 03/28/22 14:57 Pain Level 9 03/28/22 15:11 PAWSS Have you Been Recently Intoxicated or Drunk Within the Last 30 days?: No Have you Ever Experienced Previous Episodes of Alcohol Withdrawal?: No Have you ever Experienced Withdrawal Seizures?: No Have you ever Experienced Delirium Tremens(DT)s?: No Have you ever undergone Alcohol Rehabilitation Treatment (i.e, inpt ot outpatient treatment programs)?: No Have you ever Experienced Blackouts?: No Have you ever Combined Alcohol with other Downers within the last 90 days?: No Have you ever Combined Alcohol with any other Substance of Abuse during the last 90 days?: No Positive Blood Alcohol level on Presentation? [PCS.BAL]: No Evidence of Increased Autonomic Activity (i.e. HR>120, tremor, sweating, agitation, nausea)?: No Result: 0
--- NOTE | 2022-04-03 08:23 | NUR.NOTE ---
Nursing Note: Accessed chart for [facility] billing purposes.
== END 2022-03-28 16:07 | disposition home or self-care (01) ==
PROVIDERS: Emergency Provider Nurse Practitioner Family; PCP Physician Assistant
DX: S42.001A Fracture of unspecified part of right clavicle, initial encounter for closed fracture (principal); X58.XXXA Exposure to other specified factors, initial encounter
CPT/HCPCS: 99283

== ENCOUNTER 2022-04-02 10:35 | Inpatient (IN) | payer MEDICAID, SELFPAY ==
[2022-04-02] VITALS (132 sets, daily range): BP systolic 83–181; BP diastolic 41–112; PULSE 83–156; RESP 11–43; TEMP 35.7–36.8; O2SAT 93–99
--- NOTE | 2022-04-02 10:15 | RT.EKG_ITS ---
APPROVED REPORT Exam: Resting ECG Reason for Exam: unconscience Patient Location: E HR:151 bpm ECG Measurements Heart Rate [address] 131 P 66 QRSd 88 QRS -12 QT 244 T 159 QTc 388 Conclusion Sinus tachycardia...rate> 99 Ventricular trigeminy...trigeminy string>6 w/ V complexes Nonspecific repol abnormality, diffuse leads...ST dep, T flat/neg, ant/lat/inf
--- NOTE | 2022-04-02 10:30 | DI.RAD_ITS ---
Exam(s) XR PORTABLE CHEST AP POST LINE EXAM: XR PORTABLE CHEST AP POST LINE CLINICAL HISTORY: post intuabtion TECHNIQUE: COMPARISON: CR XR CHEST 1V IN DI DEPT from 01/18/2022 FINDINGS: As noted on today's chest CT, there is an endotracheal tube in position. This lies about 2.9 cm abov e the frank. Bilateral basilar areas of pulmonary consolidation are also noted as seen on CT. Othe rwise lungs appear fairly clear. No other significant acute findings. IMPRESSION: Bibasilar pulmonary consolidation, as noted on today's CT. RADIATION DOSE DELIVERED: Total DLP
[2022-04-02] MEDS: Ketamine 500 MG/10 ML VIAL 100 MG IVP (10:38)
[2022-04-02] MEDS: Rocuronium 50 MG/5 ML SYR 100 MG IVP (10:38)
[2022-04-02] MEDS: PROPOFOL 1,000 MG/100 ML BTL 25.2 MG ×2 (10:45→12:45)
[2022-04-02] MEDS: PROPOFOL 500 MG/50 ML BTL 25.392 MG IV (10:45)
--- NOTE | 2022-04-02 10:45 | DI.CT_ITS ---
Exam(s) CT CHEST/ABD/PEL W EXAM: CT CHEST/ABD/PEL W CLINICAL HISTORY: altered mentation, tachycardic, found unresponsive TECHNIQUE: CT examination of the chest, abdomen, and pelvis was performed with intravenous infusion of 100 cc of Omnipaque 350. COMPARISON: No exams were available for comparison FINDINGS: There is an endotracheal tube in position. There are bilateral areas of pulmonary consolidation in d ependent portions of the lungs. There are questionable of filling defects in lower lobe bronchi bila terally raising the possibility of aspiration.. There is no pleural effusion seen. There is no mediastinal or hilar adenopathy. Pulmonary arteries are unremarkable with no evidence of pulmonary embolic disease. Thoracic aorta and major branches appear intact with no evidence of aneurysm or dissection. No bony abnormality seen in the thorax. The liver is normal appearance. Gallbladder and bile ducts are CT normal. No abnormality seen involving the spleen. Pancreas appears intact. The adrenals are unremarkable in appearance. The right kidney is unremarkable in appearance with no hydronephrosis, nephrolithiasis, or renal mass. Right ureter unremarkable period Left kidney is mildly hydronephrotic. There is no evidence ureteral calcification although there are a couple small nonobstructing intrarenal calculi period there is question of UPJ obstruction on the left. No additional ureteral abnormality seen. Urinary bladder unremarkable period. Abdominal aorta and major visceral branches appear intact. No significant abdominal wall hernia seen. No significant abdominal or pelvic adenopathy. No focal bowel pathology. No evidence of appendicitis or diverticulitis. IMPRESSION: Bilateral pulmonary consolidation, possibly due to aspiration. Endotracheal tube in good position. Mild left hydronephrosis without evidence of calcific obstruction, question UPJ obstruction. Correla tion with CT urogram recommended. RADIATION DOSE DELIVERED: 1,736.19mGy.cm Total DLP 1,736.19mGy.cm Total DLP DATA REPOSITORY: All CT scans at this facility are submitted to the National Radiology Data Registry (NRDR) Dose Index Registry (DIR) with the [employer] (ACR). RADIATION OPTIMIZATION: All CT scans at this facility use at least one of these dose optimization te chniques: automated exposure control; mA and/or kV adjustment per patient size (includes targeted exa ms where dose is matched to clinical indication); or iterative reconstruction.
--- NOTE | 2022-04-02 10:45 | DI.CT_ITS ---
Exam(s) CT HEAD WO EXAM: CT HEAD WO CLINICAL HISTORY: altered mentation. TECHNIQUE: Imaging Protocol: Axial computed tomography images with coronal and sagittal reformatted images were created and reviewed COMPARISON: CT CT HEAD CERVICAL SPINE WO from 01/18/2022 FINDINGS: The ventricular system is normal in appearance. No evidence of acute intracranial hemorrhage, mass effect, or midline shift. The orbital structures are unremarkable. The temporal bone structures appear intact. Calvarium: Normal. Visualized Paranasal sinuses/Mastoids: There is a probable retention cyst of the right maxillary antr um. There is partial opacification of bilateral ethmoid sinuses and right sphenoid sinus consistent with chronic sinusitis.. IMPRESSION: No evidence of acute intracranial process. RADIATION DOSE DELIVERED: 901.05mGy.cm Total DLP 901.05mGy.cm Total DLP DATA REPOSITORY: All CT scans at this facility are submitted to the National Radiology Data Registry (NRDR) Dose Index Registry (DIR) with the [employer] (ACR). RADIATION OPTIMIZATION: All CT scans at this facility use at least one of these dose optimization te chniques: automated exposure control; mA and/or kV adjustment per patient size (includes targeted exa ms where dose is matched to clinical indication); or iterative reconstruction.
[2022-04-02 10:49] LABS: Abs Immature Grans 0.08 10^3/uL (0.0-0.06); Absolute Basophil Count 0.06 10^3/uL (0.0-0.2); Absolute Eosinophil Count 0.02 10^3/uL (0.0-0.7); Absolute Lymphocyte Count 1.03 10^3/uL (1.2-3.4); Absolute Monocyte Count 0.68 10^3/uL (0.1-0.8); Absolute Neutrophil Count 14.02 10^3/uL (1.2-6.7); Basophils % 0.4; Eosinophils % 0.1; HCT 41.1 % (40.0-50.0); HGB 13.9 g/dL (13.5-17.5); Immature Grans % 0.5; Lymphocytes % 6.5; MCH 30.2 pg (27.0-33.0); MCHC 33.8 % (32.0-36.0); MCV 89 fL (80-95); MPV 9.7 fL (8.0-11.0); Monocytes % 4.3; Neutrophils % 88.2; Platelet Count 319 10^3/uL (130-400); RBC 4.61 10^6/uL (4.36-5.78); RDW 13.5 % (11.8-14.1); RDW-SD 43.8 fL
[2022-04-02 11:00] LABS: BE (Venous) 4 mmol/L (-2-3); HCO3 (Venous) 29 mmol/L (23-28); pCO2 (Venous) 51 mmHg (41-51); pH (Venous) 7.37 (7.31-7.41); pO2 (Venous) 170 mmHg
[2022-04-02 11:01] LABS: O2 Sat (Venous) > 99 %
--- NOTE | 2022-04-02 11:06 | DI.VRAD_ITS ---
PROCEDURE INFORMATION: Exam: XR Chest Exam date and time: 04/02/2022 10:35 AM Age: 36 years old Clinical indication: Device placement; Ett placement (vent status); Patient HX: Unresponsive TECHNIQUE: Imaging protocol: Radiologic exam of the chest. Views: 1 view. COMPARISON: CR XR CHEST 1V IN DI DEPT 01/18/2022 2:04 PM FINDINGS: Tubes, catheters and devices: Endotracheal tube terminates 2.5 cm above the frank. Lungs: Low lung volumes patchy perihilar and basilar opacities with dense left retrocardiac opacity. Pleural spaces: No definite pleural effusion. No pneumothorax. Heart/Mediastinum: Cardiac silhouette appears enlarged, accentuated by hypoinflation and exam technique. Bones/joints: Sideplate and screw fixation of the right clavicle fracture. IMPRESSION: 1. Appropriate appearing position of the endotracheal tube. 2. Pulmonary hypoinflation with patchy perihilar and basilar opacities that favor atelectasis. Superimposed infection/aspiration not excluded. Dictated and Authenticated by: Qi Hutchins MD. Ordering:TOMAS Christianson MD
[2022-04-02 11:10] LABS: ALT 17 U/L (16-63); AST 12 U/L (15-37); Albumin 4.1 g/dL (3.4-5.0); Alkaline Phosphatase 86 U/L (46-116); Anion Gap 9.8 mmol/L (3-11); BUN 19 mg/dL (7-18); Bilirubin, Total 0.4 mg/dL (0.2-1.0); CO2 29.2 mmol/L (21.0-32.0); CREATININE 1.4 mg/dL (0.70-1.30); Calcium 9.5 mg/dL (8.5-10.1); Chloride 101 mmol/L (98-107); Estimated GFR 67.64 (mL/min/1.73m2); Glucose 139 mg/dL (74-106); Magnesium 1.8 mg/dL (1.8-2.4); Potassium 3.3 mmol/L (3.5-5.1); Sodium 140 mmol/L (136-145); Total Protein 7.6 g/dL (6.4-8.2)
[2022-04-02 11:12] LABS: Troponin I 134 ng/L (<or=60)
[2022-04-02] MEDS: Omnipaque 350 MG/ML 100 ML BTL IJ (11:19)
[2022-04-02 11:22] LABS: ETHANOL BLOOD < 3.0 mg/dL (<10)
[2022-04-02 11:38] LABS: Salicylate 2.8 mg/dL (<2.8)
[2022-04-02 11:39] LABS: Acetaminophen < 2 ug/mL (10-30)
--- NOTE | 2022-04-02 11:40 | ED.GENADUL_ITS ---
Discharge Plan Disposition Patient Disposition: Admit to [facility] Condition: Critical Discharge Details Chief Complaint: AMS/LOC Clinical Impression: Polysubstance abuse, Overdose, Altered mental status, Elevated troponin Admit Date/Time: 04/02/22 11:58 Admit Provider: Nate Bowden Attending Provider: Nate Bowden Primary Care Provider: Tc Minaya ED Provider: Sammy Overton Medical Decision Making 36-year-old male seen immediately on arrival, presents by EMS having been found in his car unresponsive with drug paraphernalia on his person. Initially pinpoint pupils, naloxone was administered and patient became more alert but completely altered. Pupils now normal and reactive. Patient is tachycardic and hypertensive. Presentation consistent with sympathomimetic toxidrome and likely polysubstance abuse. Patient not protecting his airway. He was intubated to allow for sedation and for airway protection. Chest x-ray postintubation interpreted by me: Endotracheal tube in adequate position. Patient required heavy doses of propofol and had Versed and fentanyl to maintain adequate sedation. He did seem to have intermittent spastic movements of bilateral upper and lower extremities, questionable seizure activity. Keppra 1 g IV was given. Spastic movements did resolve. EKG was reviewed and interpreted by me: Sinus tachycardia 151 bpm, ST depressions noted laterally V4 to V6. Considered acute life-threatening intracranial hemorrhage. CT of the head was interpreted by radiology:IMPRESSION: 1. Question diffuse accentuation of rogers-white matter differentiation, nonspecific finding that may be related to exam technique. 2. No acute intracranial hemorrhage, mass effect or midline shift. 3. Paranasal sinus disease with frothy partial opacification of the ethmoids and sphenoid sinuses, prominent mucous retention cysts in the right maxillary sinus. CT of the chest, abdomen and pelvis interpreted by radiology: IMPRESSION: Bilateral pulmonary consolidation, possibly due to aspiration.? Endotracheal tube in good position. Mild left hydronephrosis without evidence of calcific obstruction, question UPJ obstruction.? Correlation with CT urogram recommended. Labs reviewed and WBC elevated at 16. Troponin is elevated at 134. Suspect demand ischemia. Nursing unable to place Pepper catheter. Urinalysis pending. I called and spoke with the hospitalist on-call, Dr. Bowden, discussed ED presentation and course, he will admit the patient. Lab Data Lab results reviewed: Yes I reviewed the patient's lab results. Labs: Laboratory Tests Range/Units 11/20/22 11/20/22 11/20/22 10:30 10:30 10:30 WBC (4.4-10.8) 10^3/uL 15.90 H RBC (4.36-5.78) 10^6/uL 4.61 Hgb (13.5-17.5) g/dL 13.9 Hct (40.0-50.0) % 41.1 MCV (80-95) fL 89 MCH (27.0-33.0) pg 30.2 MCHC (32.0-36.0) % 33.8 RDW (11.8-14.1) % 13.5 Plt Count (130-400) 10^3/uL 319 MPV (8.0-11.0) fL 9.7 Immature Gran % 0.5 Neutrophils % 88.2 Lymphocytes % 6.5 Monocytes % 4.3 Eosinophils % 0.1 Basophils % 0.4 Nucleated RBC % (0.0-0.3) % 0.0 Absolute Neutrophils (1.2-6.7) 10^3/uL 14.02 H Absolute Lymphocytes (1.2-3.4) 10^3/uL 1.03 L Absolute Monocytes (0.1-0.8) 10^3/uL 0.68 Absolute Eosinophils (0.0-0.7) 10^3/uL 0.02 Absolute Basophils (0.0-0.2) 10^3/uL 0.06 VBG pH VBG pCO2 VBG pO2 VBG HCO3 VBG Total CO2 VBG O2 Saturation VBG Base Excess Sodium (136-145) mmol/L 140 Potassium (3.5-5.1) mmol/L 3.3 L Chloride (98-107) mmol/L 101 Carbon Dioxide (21.0-32.0) mmol/L 29.2 Anion Gap (3-11) mmol/L 9.8 BUN (7-18) mg/dL 19 H Creatinine (0.70-1.30) mg/dL 1.4 H Est GFR (CKD-EPI 2020) (mL/min/1.73m2) 67.64 Glucose (74-106) mg/dL 139 H Calcium (8.5-10.1) mg/dL 9.5 Magnesium (1.8-2.4) mg/dL 1.8 Total Bilirubin (0.2-1.0) mg/dL 0.4 AST (15-37) U/L 12 L ALT (16-63) U/L 17 Alkaline Phosphatase (46-116) U/L 86 Troponin I (<or=60) ng/L 134 H* Total Protein (6.4-8.2) g/dL 7.6 Albumin (3.4-5.0) g/dL 4.1 Salicylates (<2.8) mg/dL 2.8 Acetaminophen (10-30) ug/mL < 2 Ethyl Alcohol (<10) mg/dL < 3.0 Range/Units 04/02/22 04/02/22 10:49 10:56 WBC (4.4-10.8) 10^3/uL RBC (4.36-5.78) 10^6/uL Hgb (13.5-17.5) g/dL Hct (40.0-50.0) % MCV (80-95) fL MCH (27.0-33.0) pg MCHC (32.0-36.0) % RDW (11.8-14.1) % Plt Count (130-400) 10^3/uL MPV (8.0-11.0) fL Immature Gran % Neutrophils % Lymphocytes % Monocytes % Eosinophils % Basophils % Nucleated RBC % (0.0-0.3) % Absolute Neutrophils (1.2-6.7) 10^3/uL Absolute Lymphocytes (1.2-3.4) 10^3/uL Absolute Monocytes (0.1-0.8) 10^3/uL Absolute Eosinophils (0.0-0.7) 10^3/uL Absolute Basophils (0.0-0.2) 10^3/uL VBG pH Cancelled 7.37 VBG pCO2 Cancelled 51 VBG pO2 Cancelled 170 VBG HCO3 Cancelled 29 H VBG Total CO2 Cancelled VBG O2 Saturation Cancelled > 99 VBG Base Excess Cancelled 4 H Sodium (136-145) mmol/L Potassium (3.5-5.1) mmol/L Chloride (98-107) mmol/L Carbon Dioxide (21.0-32.0) mmol/L Anion Gap (3-11) mmol/L BUN (7-18) mg/dL Creatinine (0.70-1.30) mg/dL Est GFR (CKD-EPI 2020) (mL/min/1.73m2) Glucose (74-106) mg/dL Calcium (8.5-10.1) mg/dL Magnesium (1.8-2.4) mg/dL Total Bilirubin (0.2-1.0) mg/dL AST (15-37) U/L ALT (16-63) U/L Alkaline Phosphatase (46-116) U/L Troponin I (<or=60) ng/L Total Protein (6.4-8.2) g/dL Albumin (3.4-5.0) g/dL Salicylates (<2.8) mg/dL Acetaminophen (10-30) ug/mL Ethyl Alcohol (<10) mg/dL Sign Out No HPI General Mode of arrival: EMS . Date/Time Provider Initiated Documentation: 04/02/22 10:49 . Limitations to Documentation: altered mental status . Information obtained by: EMS . HPI Narrative: 36-year-old male with history of opioid abuse, arrives with altered mental status. Currently patient was found in his car unresponsive. He was given naloxone by first responders and EMS up to 12 mg. Patient initially had pinpoint pupils and pupils became more reactive and he was more alert but completely altered and clamping down with spasm per EMS. A dose of Versed was administered by EMS. History and review of systems is limited secondary to altered mental status. Related Data Home Medications Medication Instructions Recorded Confirmed Unknown [No Known Home Meds] 03/28/22 03/28/22 Allergies Allergy/AdvReac Type Severity Reaction Status Date / Time methadone Allergy Severe facial Verified 03/28/22 15:02 swelling General Stated Complaint: AMS/LOC DAVID: 1 Review of Systems Unobtainable due to mental status [facility] All Active Problems (Updated 04/02/22 @ 17:21 by Sammy Overton MD) Polysubstance abuse (Acute) Overdose (Acute) Altered mental status (Acute) Elevated troponin (Acute) No-show for appointment (Acute) Closed right clavicular fracture (Acute 01/18/22) Thrombosed external hemorrhoid (Acute) Opioid abuse (Acute) Obesity, Class II, BMI 35-39.9 (Acute) Internal hemorrhoid (Acute) Medical History Asthma Surgical History No pertinent past surgical history Social History Smoking/Tobacco Use Status: Current every day Smoking risk assessment performed?: Yes Current gender identity: male Exam Const General: uncooperative and other (altered) Nutritional Appearance: well nourished Orientation: not alert and confused Limitations: altered mental status HENMT Head: normal to inspection and no palpable skull fracture Mouth: moist mucous membranes Eyes Conjunctivae: normal conjunctivae Sclera: normal sclerae Pupils: PERRL (3mm) Neck Neck: trachea midline Resp Effort & Inspection: tachypneic Auscultation: no rales, rhonchi and no wheezes Cardio Rate: tachycardic Rhythm: regular rhythm Heart Sounds: no murmurs GI Palpation: soft, not firm, no guarding, no masses and not rigid Skin General skin exam: no rashes or lesions noted Neuro General: patient awake Cognition: abnormal cognition Motor: other (Increased tone and some spastic movements) Extrem General: no edema Psych Appearance: disheveled Course Vital Signs Vital signs: Vital Signs Temperature 36.7 C 04/02/22 10:16 Pulse 143 H 04/02/22 10:16 Respiratory Rate 30 H 04/02/22 10:16 Pulse Oximetry 98 04/02/22 10:16 Temperature 36.7 C 04/02/22 10:16 Temperature Source Tympanic 04/02/22 10:16 Pulse 149 H 04/02/22 10:55 Pulse 154 H 04/02/22 10:55 Respiratory Rate 16 04/02/22 10:55 Respiratory Effort Grunting 04/02/22 11:00 Blood Pressure 172/107 H 04/02/22 10:55 Blood Pressure Mean 122 04/02/22 10:55 Pulse Oximetry 98 04/02/22 10:51 Respiratory End-tidal CO2 53 04/02/22 10:55 Oxygen Delivery Method Non-Rebreather 04/02/22 10:16 Lab/Test Results Lab/Test Results: Laboratory Tests Range/Units 04/02/22 04/02/22 04/02/22 10:30 10:30 10:30 WBC (4.4-10.8) 10^3/uL 15.90 H RBC (4.36-5.78) 10^6/uL 4.61 Hgb (13.5-17.5) g/dL 13.9 Hct (40.0-50.0) % 41.1 MCV (80-95) fL 89 MCH (27.0-33.0) pg 30.2 MCHC (32.0-36.0) % 33.8 RDW (11.8-14.1) % 13.5 Plt Count (130-400) 10^3/uL 319 MPV (8.0-11.0) fL 9.7 Immature Gran % 0.5 Neutrophils % 88.2 Lymphocytes % 6.5 Monocytes % 4.3 Eosinophils % 0.1 Basophils % 0.4 Nucleated RBC % (0.0-0.3) % 0.0 Absolute Neutrophils (1.2-6.7) 10^3/uL 14.02 H Absolute Lymphocytes (1.2-3.4) 10^3/uL 1.03 L Absolute Monocytes (0.1-0.8) 10^3/uL 0.68 Absolute Eosinophils (0.0-0.7) 10^3/uL 0.02 Absolute Basophils (0.0-0.2) 10^3/uL 0.06 VBG pH VBG pCO2 VBG pO2 VBG HCO3 VBG Total CO2 VBG O2 Saturation VBG Base Excess Sodium (136-145) mmol/L 140 Potassium (3.5-5.1) mmol/L 3.3 L Chloride (98-107) mmol/L 101 Carbon Dioxide (21.0-32.0) mmol/L 29.2 Anion Gap (3-11) mmol/L 9.8 BUN (7-18) mg/dL 19 H Creatinine (0.70-1.30) mg/dL 1.4 H Est GFR (CKD-EPI 2020) (mL/min/1.73m2) 67.64 Glucose (74-106) mg/dL 139 H Calcium (8.5-10.1) mg/dL 9.5 Magnesium (1.8-2.4) mg/dL 1.8 Total Bilirubin (0.2-1.0) mg/dL 0.4 AST (15-37) U/L 12 L ALT (16-63) U/L 17 Alkaline Phosphatase (46-116) U/L 86 Troponin I (<or=60) ng/L 134 H* Total Protein (6.4-8.2) g/dL 7.6 Albumin (3.4-5.0) g/dL 4.1 Salicylates (<2.8) mg/dL 2.8 Acetaminophen (10-30) ug/mL < 2 Ethyl Alcohol (<10) mg/dL < 3.0 Range/Units 04/02/22 04/02/22 10:49 10:56 WBC (4.4-10.8) 10^3/uL RBC (4.36-5.78) 10^6/uL Hgb (13.5-17.5) g/dL Hct (40.0-50.0) % MCV (80-95) fL MCH (27.0-33.0) pg MCHC (32.0-36.0) % RDW (11.8-14.1) % Plt Count (130-400) 10^3/uL MPV (8.0-11.0) fL Immature Gran % Neutrophils % Lymphocytes % Monocytes % Eosinophils % Basophils % Nucleated RBC % (0.0-0.3) % Absolute Neutrophils (1.2-6.7) 10^3/uL Absolute Lymphocytes (1.2-3.4) 10^3/uL Absolute Monocytes (0.1-0.8) 10^3/uL Absolute Eosinophils (0.0-0.7) 10^3/uL Absolute Basophils (0.0-0.2) 10^3/uL VBG pH Cancelled 7.37 VBG pCO2 Cancelled 51 VBG pO2 Cancelled 170 VBG HCO3 Cancelled 29 H VBG Total CO2 Cancelled VBG O2 Saturation Cancelled > 99 VBG Base Excess Cancelled 4 H Sodium (136-145) mmol/L Potassium (3.5-5.1) mmol/L Chloride (98-107) mmol/L Carbon Dioxide (21.0-32.0) mmol/L Anion Gap (3-11) mmol/L BUN (7-18) mg/dL Creatinine (0.70-1.30) mg/dL Est GFR (CKD-EPI 2020) (mL/min/1.73m2) Glucose (74-106) mg/dL Calcium (8.5-10.1) mg/dL Magnesium (1.8-2.4) mg/dL Total Bilirubin (0.2-1.0) mg/dL AST (15-37) U/L ALT (16-63) U/L Alkaline Phosphatase (46-116) U/L Troponin I (<or=60) ng/L Total Protein (6.4-8.2) g/dL Albumin (3.4-5.0) g/dL Salicylates (<2.8) mg/dL Acetaminophen (10-30) ug/mL Ethyl Alcohol (<10) mg/dL Procedures Intubation Time out performed: Yes sedative: Ketamine Mg Given: 150 paralytic: Rocuronium Mg Given: 100 Critical Care Time Critical Care Time Critical Care Time: Yes Total Critical Care Time: 40 Attestation: I spent greater than 40 minutes addressing this patient's immediate life threats. Please see MDM section of note. This time was spent engaged in work directly related to the patient's care, exclusive of separate procedures, and failure to initiate these interventions would have likely resulted in clinically significant or life threatening deterioration in the patient's condition.
--- NOTE | 2022-04-02 11:42 | DI.VRAD_ITS ---
PROCEDURE INFORMATION: Exam: CT Head Without Contrast Exam date and time: 04/02/2022 11:14 AM Age: 36 years old Clinical indication: Other: Altered mentation TECHNIQUE: Imaging protocol: Computed tomography of the head without contrast. Radiation optimization: All CT scans at this facility use at least one of these dose optimization techniques: automated exposure control; mA and/or kV adjustment per patient size (includes targeted exams where dose is matched to clinical indication); or iterative reconstruction. COMPARISON: CT HEAD CERVICAL SPINE WO 01/18/2022 2:59 PM FINDINGS: Brain: Wilson-white matter differentiation appears somewhat diffusely accentuated. No focal white matter abnormality. No acute intracranial hemorrhage. No mass effect or midline shift. Cerebral ventricles: No ventriculomegaly. Paranasal sinuses: Likely large mucous retention cyst within the right maxillary sinus. There is partial opacification of the ethmoid air cells and sphenoid sinuses. Mastoid air cells: Visualized mastoid air cells are well aerated. Nasal cavity: Rightward nasal septal deviation. Bones/joints: Unremarkable. No acute fracture. Soft tissues: Unremarkable. IMPRESSION: 1. Question diffuse accentuation of wilson-white matter differentiation, nonspecific finding that may be related to exam technique. 2. No acute intracranial hemorrhage, mass effect or midline shift. 3. Paranasal sinus disease with frothy partial opacification of the ethmoids and sphenoid sinuses, prominent mucous retention cysts in the right maxillary sinus. Dictated and Authenticated by: Qi Hutchins MD. Ordering:TOMAS Christianson MD
--- NOTE | 2022-04-02 11:51 | DI.VRAD_ITS ---
PROCEDURE INFORMATION: Exam: CT Chest With Contrast; Diagnostic Exam date and time: 04/02/2022 11:23 AM Age: 36 years old Clinical indication: Other: Altered mentation, tachycardic, found unresponsive TECHNIQUE: Imaging protocol: Diagnostic computed tomography of the chest with contrast. Radiation optimization: All CT scans at this facility use at least one of these dose optimization techniques: automated exposure control; mA and/or kV adjustment per patient size (includes targeted exams where dose is matched to clinical indication); or iterative reconstruction. Contrast material: OMNIPAQUE 350; Contrast volume: 100 ml; Contrast route: INTRAVENOUS (IV); COMPARISON: XR PORTABLE CHEST AP 04/02/2022 10:35 AM FINDINGS: Tubes, catheters and devices: Endotracheal tube approximately 2 cm above the frank. Lungs: Bibasilar consolidation worse on the left versus the right remainder of the lung parenchyma is clear. Trace air bronchograms in the left lower lobe. Filling defects in the bilateral lower lobe bronchi. Pleural spaces: Unremarkable. No pneumothorax. No pleural effusion. Heart: The heart is within normal limits for size. There is no evidence of pericardial abnormality. No coronary artery calcifications noted. Lymph nodes: Unremarkable. No enlarged lymph nodes. Vasculature: Minimal air and small venous branches overlying the anterior chest possibly related to intravenous access. Bones/joints: Fracture right clavicle with screw and plate fixation hardware noted. Soft tissues: Unremarkable. IMPRESSION: 1. Filling defects in the bilateral lower lobe bronchi, concerning for possible aspiration. 2. Bibasilar consolidation worse on the left concerning for pneumonia versus atelectasis. PROCEDURE INFORMATION: Exam: CT Abdomen And Pelvis With Contrast Exam date and time: 04/02/2022 11:23 AM Age: 36 years old Clinical indication: Other: Altered mentation, tachycardic, found unresponsive TECHNIQUE: Imaging protocol: Computed tomography of the abdomen and pelvis with contrast. Radiation optimization: All CT scans at this facility use at least one of these dose optimization techniques: automated exposure control; mA and/or kV adjustment per patient size (includes targeted exams where dose is matched to clinical indication); or iterative reconstruction. Contrast material: OMNIPAQUE 350; COMPARISON: XR PORTABLE CHEST AP 04/02/2022 10:35 AM FINDINGS: Liver: The liver is normal in size and contour. Gallbladder and bile ducts: The gallbladder is distended with normal wall thickness and does not demonstrate calcified gallstones. No intra- or extra-hepatic biliary ductal dilatation. Pancreas: The pancreas appears normal. Spleen: The spleen appears normal. Adrenal glands: The adrenals appear normal. Kidneys and ureters: Punctate nonobstructing stone in the upper pole of the left kidney. Mild left-sided hydronephrosis. No perinephric fat stranding. No ureteral stones. No hydroureter. No periureteral fat stranding. Stomach and bowel: The stomach is unremarkable. The small bowel loops are not abnormally dilated. The large bowel loops are not abnormally dilated. Appendix: The appendix appears normal. Intraperitoneal space: No ascites or significant fluid collection. Vasculature: The aorta is nonaneurysmal. The IVC appears normal. Lymph nodes: There are no enlarged lymph nodes. Urinary bladder: The bladder is distended and demonstrates no focal contour abnormality. Reproductive: Unremarkable as visualized. Bones/joints: Unremarkable. Soft tissues: 9 mm fat containing umbilical hernia noted. IMPRESSION: Punctate nonobstructing stone in the upper pole of the left kidney. Mild left-sided hydronephrosis, but no hydroureter, ureteral stones, perinephric or periureteral fat stranding. Dictated and Authenticated by: Justin Bennett MD. Ordering:TOMAS Christianson MD
[2022-04-02] MEDS: fentaNYL 1,000 MCG in Normal Saline 80 ML 10.58 MCG IV (11:53)
[2022-04-02] MEDS: MIDAZOLAM 50 MG in Normal Saline 90 ML 10.58 MG IV ×2 (11:56→18:22)
[2022-04-02] MEDS: levETIRAcetam 1,000 MG in Normal Saline 100 ML 400 MG IVPB ×2 (12:19→23:16)
[2022-04-02 12:44] LABS: Source Nasal/Nares
[2022-04-02] MEDS: PROPOFOL 500 MG/50 ML BTL 41.002 MG IV (13:00)
[2022-04-02 13:15] LABS: COVID-19 PCR Negative (Negative)
[2022-04-02] MEDS: MIDAZOLAM 50 MG in Normal Saline 90 ML 63 MG IV (13:52)
[2022-04-02 15:06] LABS: Troponin I 676 ng/L (<or=60)
[2022-04-02 15:06] LABS: *AMPHETAMINES SCREEN URINE Negative (Negative); *BARBITURATES SCREEN URINE Negative (Negative); *BENZODIAZEPINES SCREEN URINE Positive (Negative); Cannabinoids THC Negative (Negative); Cocaine Screen,Urine Positive (Negative); METHADONE URINE SCREEN Negative (Negative); OPIATES URINE SCREEN Negative (Negative)
[2022-04-02 15:10] LABS: Tricyclic Antidepressants Negative (Negative)
[2022-04-02] MEDS: Heparin 5,000 UNITS/ML VIAL 5000 UNITS SC (15:17)
[2022-04-02] MEDS: dexmedeTOMidine IN 0.9 % NACL 400 MCG/100 ML BTL 5.29 MCG IV (15:17)
--- NOTE | 2022-04-02 16:23 | DI.RAD_ITS ---
Exam(s) XR PORTABLE CHEST AP POST LINE EXAM: XR PORTABLE CHEST AP POST LINE CLINICAL HISTORY: oral gastric tube placement TECHNIQUE: 2D digital imaging was performed. COMPARISON: CR XR CHEST 1V IN DI DEPT from 01/18/[address] CHEST/ABD/PEL W from 04/02/2022 CR,XR XR PORTABLE CHEST AP POST LINE from 04/02/2022 FINDINGS: A nasogastric tube has been inserted which projects in the stomach. Pre-existing endotracheal tube u nchanged in position. LUNGS: Not well inflated. Question of atelectasis versus infiltrate left lower lobe.. No pleural ab normality seen. HEART: Normal. AORTA: Normal. BONES: Unremarkable for age. Soft tissues: Unremarkable. IMPRESSION: Question left left lower lobe infiltrate versus atelectasis. Satisfactory placement of nasogastric t ube DATA REPOSITORY: RADIATION DOSE DELIVERED:
--- NOTE | 2022-04-02 17:12 | DI.VRAD_ITS ---
PROCEDURE INFORMATION: Exam: XR Chest Exam date and time: 04/02/2022 4:33 PM Age: 36 years old Clinical indication: Other: Oral gastric tube placement TECHNIQUE: Imaging protocol: Radiologic exam of the chest. Views: 1 view. COMPARISON: CT CHEST/ABD/PEL W 04/02/2022 11:23 AM FINDINGS: Tubes, catheters and devices: There is a new orogastric tube in place with its tip projecting at the left upper quadrant of the abdomen, likely residing within the gastric body. Again noted is an endotracheal tube in place with its tip now residing 6.4 cm superior to the frank. Lungs: Again noted is retrocardiac airspace opacity which is without clear change since prior study. Lungs otherwise clear. There is no pulmonary vascular congestion. Pleural spaces: There are no pleural effusions present. There is no evidence of pneumothorax, but the apices of the right and left hemithorax are not imaged on this exam, limiting evaluation. Heart/Mediastinum: The cardiomediastinal silhouette is within normal limits. Bones/joints: Unremarkable. IMPRESSION: 1. Tip of orogastric tube projects in the region of the gastric body 2. Retrocardiac airspace opacity, without clear change, may represent atelectasis or pneumonia. Dictated and Authenticated by: Umang Matamoros MD. Ordering:EDSTINEE Sullivan MD
[2022-04-02] MEDS: PROPOFOL 500 MG/50 ML BTL 19.044 MG IV (17:42)
--- NOTE | 2022-04-02 18:04 | HPE_ITS ---
Date of service: 04/02/22 Time of Service: 12:00 Assessment and Plan Assessment and plan (1) Polysubstance abuse: Status: Acute Assessment and plan: UDS + for THC. Fentanyl tabs and crushed fentanyl with paraphenalia found on his person. Unsure of frequency and amount of his usage of fentanyl. (2) Overdose: Status: Acute Assessment and plan: NOw intubated for obtunded state and concerns for inability to protect airway. CXR shows likely aspiration. (3) Altered mental status: Status: Acute Assessment and plan: D/T substance abuse / ingestion. (4) Asthma: Assessment and plan: PRN albuterol updrafts. (5) Aspiration pneumonitis: Status: Acute Assessment and plan: Infection vs inflammation. WBC count elevated but not necessarily indicative of infection. Did initiate Rocephin. Monitor. Pulmonary/[employer] to see in AM History of Present Illness History of Present Illness Chief Complaint: Altered mental status, obtunded Narrative: This is a 36 yo male with a h/o polysubstance abuse who was found in his car unresponsive. First responders and EMS administered naloxone; total of 12mg. He became more alert and his pupils went from pinpoint to more reactive. He did remain altered. EMS noted generalized muscle spasms and versed was administered. Drug paraphenalia and intact and crushed fentanyl were found on his person. He was noted to be hypertensive and tachycardic. He was intubated for airway protection. High doses of propofol, versed and fentanyl required to maintain adequate sedation. He was noted to have intermittent spastic movements of b ilateral upper and lower extremities that could have been seizure activity. Keppra 1 g IV given and will be continued. CT of head w/o acute findings. Paranasal sinus disease of ethmoids and spenoid sinuses noted. Mucous retention cysts in right maxillary sinus. CT ches/abd/pelvis with bilateral pulmonary consolidation, possibly due to aspiration. . WBC count elevated at 15.9. Trop of 134. Review of Systems Unobtainable due to mental status [facility] All Active Problems Aspiration pneumonitis (Acute) Polysubstance abuse (Acute) Overdose (Acute) Altered mental status (Acute) Elevated troponin (Acute) No-show for appointment (Acute) Closed right clavicular fracture (Acute 01/18/22) Thrombosed external hemorrhoid (Acute) Opioid abuse (Acute) Obesity, Class II, BMI 35-39.9 (Acute) Internal hemorrhoid (Acute) Medical History Asthma Surgical History No pertinent past surgical history Social History Smoking/Tobacco Use Status: Current every day Smoking risk assessment performed?: Yes Current gender identity: male Meds Allergies and Home Medications Allergies Allergy/AdvReac Type Severity Reaction Status Date / Time methadone Allergy Severe facial Verified 03/28/22 15:02 swelling Home Medications Medication Instructions Recorded Confirmed Type Unknown [No Known Home Meds] 03/28/22 03/28/22 History Exam Narrative Exam Narrative: Pt intubated. Const General: no acute distress Nutritional Appearance: overweight Eyes General: appearance normal, both eyes and all related structures Sclera: sclerae normal Pupils: pupil size (3mm) Resp Effort & Inspection: normal respiratory effort Auscultation: rhonchi (soft upper airway) Cardio Rate: tachycardic Rhythm: regular rhythm GI Inspection: normal to inspection Palpation: soft Skin General skin exam: no rashes or lesions noted Neuro General: no focal motor deficits (spontaneous movement of all exts noted) Cranial Nerves: facial strength normal Results Labs Result diagrams: 04/03/22 05:25 04/02/22 10:30 Labs: Laboratory Results - last 24 hr 04/02/22 04/02/22 04/02/22 10:30 10:30 10:30 WBC 15.90 H RBC 4.61 Hgb 13.9 Hct 41.1 MCV 89 MCH 30.2 MCHC 33.8 RDW 13.5 Plt Count 319 MPV 9.7 Immature Gran % 0.5 Neutrophils % 88.2 Lymphocytes % 6.5 Monocytes % 4.3 Eosinophils % 0.1 Basophils % 0.4 Nucleated RBC % 0.0 Absolute Neutrophils 14.02 H Absolute Lymphocytes 1.03 L Absolute Monocytes 0.68 Absolute Eosinophils 0.02 Absolute Basophils 0.06 VBG pH VBG pCO2 VBG pO2 VBG HCO3 VBG Total CO2 VBG O2 Saturation VBG Base Excess Sodium 140 Potassium 3.3 L Chloride 101 Carbon Dioxide 29.2 Anion Gap 9.8 BUN 19 H Creatinine 1.4 H Est GFR (CKD-EPI 2020) 67.64 Glucose 139 H Calcium 9.5 Magnesium 1.8 Total Bilirubin 0.4 AST 12 L ALT 17 Alkaline Phosphatase 86 Troponin I 134 H* Total Protein 7.6 Albumin 4.1 Salicylates 2.8 Urine Opiates Screen Urine Methadone Screen Acetaminophen < 2 Ur Barbiturates Screen Ur Tricyclics Screen Ur Amphetamines Screen U Benzodiazepines Scrn Urine Cocaine Screen Ur THC Screen Ethyl Alcohol < 3.0 COVID-19 Source SARS-CoV-2 (PCR) 04/02/22 04/02/22 04/02/22 10:49 10:56 12:40 WBC RBC Hgb Hct MCV MCH MCHC RDW Plt Count MPV Immature Gran % Neutrophils % Lymphocytes % Monocytes % Eosinophils % Basophils % Nucleated RBC % Absolute Neutrophils Absolute Lymphocytes Absolute Monocytes Absolute Eosinophils Absolute Basophils VBG pH Cancelled 7.37 VBG pCO2 Cancelled 51 VBG pO2 Cancelled 170 VBG HCO3 Cancelled 29 H VBG Total CO2 Cancelled VBG O2 Saturation Cancelled > 99 VBG Base Excess Cancelled 4 H Sodium Potassium Chloride Carbon Dioxide Anion Gap BUN Creatinine Est GFR (CKD-EPI 2020) Glucose Calcium Magnesium Total Bilirubin AST ALT Alkaline Phosphatase Troponin I Total Protein Albumin Salicylates Urine Opiates Screen Urine Methadone Screen Acetaminophen Ur Barbiturates Screen Ur Tricyclics Screen Ur Amphetamines Screen U Benzodiazepines Scrn Urine Cocaine Screen Ur THC Screen Ethyl Alcohol COVID-19 Source Nasal/Nares SARS-CoV-2 (PCR) Negative 04/02/22 04/02/22 13:15 14:30 WBC RBC Hgb Hct MCV MCH MCHC RDW Plt Count MPV Immature Gran % Neutrophils % Lymphocytes % Monocytes % Eosinophils % Basophils % Nucleated RBC % Absolute Neutrophils Absolute Lymphocytes Absolute Monocytes Absolute Eosinophils Absolute Basophils VBG pH VBG pCO2 VBG pO2 VBG HCO3 VBG Total CO2 VBG O2 Saturation VBG Base Excess Sodium Potassium Chloride Carbon Dioxide Anion Gap BUN Creatinine Est GFR (CKD-EPI 2020) Glucose Calcium Magnesium Total Bilirubin AST ALT Alkaline Phosphatase Troponin I 676 H* Total Protein Albumin Salicylates Urine Opiates Screen Negative Urine Methadone Screen Negative Acetaminophen Ur Barbiturates Screen Negative Ur Tricyclics Screen Negative Ur Amphetamines Screen Negative U Benzodiazepines Scrn Positive A Urine Cocaine Screen Positive A Ur THC Screen Negative Ethyl Alcohol COVID-19 Source SARS-CoV-2 (PCR) Last Vital Signs Temp 36.8 C 04/02/22 15:35 Pulse 100 H 04/02/22 16:01 Resp 15 04/02/22 17:52 BP 113/75 04/02/22 17:52 Pulse Ox 98 04/02/22 17:52
[2022-04-02 18:33] LABS: Lab Add On Test DONE
[2022-04-02 19:02] LABS: Troponin I 946 ng/L (<or=60)
[2022-04-02 19:38] LABS: Procalcitonin 0.9 ng/mL
[2022-04-02] MEDS: cefTRIAXone 2 GM/50 ML BAG IVPB (19:57)
[2022-04-02] MEDS: PROPOFOL 1,000 MG/100 ML BTL 18.648 MG IV (20:00)
[2022-04-02] MEDS: Normal Saline Flush 10 ML SYR IVP (22:19)
[2022-04-02] MEDS: PROPOFOL 1,000 MG/100 ML BTL 30 MG (23:00)
[2022-04-03] VITALS (138 sets, daily range): BP systolic 91–130; BP diastolic 53–86; PULSE 75–103; RESP 7–37; TEMP 36.4–38.1; O2SAT 87–100
--- NOTE | 2022-04-03 | DI.RAD_ITS ---
Exam(s) XR PORTABLE CHEST AP POST LINE EXAM: XR PORTABLE CHEST AP POST LINE CLINICAL HISTORY: Confirmation of endotracheal Tube placement. TECHNIQUE: 2D digital imaging was performed of the chest. Images were obtained. PA and lateral v iews were obtained. COMPARISON: CR,XR XR PORTABLE CHEST AP POST LINE from 04/02/2022 FINDINGS: MEDIASTINUM: Normal. HEART: Normal. PULMONARY VASCULATURE: Normal. LUNGS: Since the prior examination plate atelectatic changes are seen in the left lower lobe. The tucker ngs are otherwise clear. PLEURAL SPACE: No pleural effusion or pneumothorax. BONE:Within normal limits for the patient's age. Plate and screws are seen in the right clavicle. OTHER FINDINGS:The tip of the endotracheal tube lies 5.5 cm above the frank. The tip of the nasogas tric tube passes into the stomach. IMPRESSION: 1. No acute pulmonary findings. DATA REPOSITORY: RADIATION DOSE DELIVERED:
[2022-04-03] MEDS: Normal Saline 1,000 ML 125 ML IV ×2 (00:31→07:42)
[2022-04-03] MEDS: Heparin 5,000 UNITS/ML VIAL 5000 UNITS SC ×4 (00:49→22:11)
[2022-04-03] MEDS: PROPOFOL 1,000 MG/100 ML BTL 12.432 MG IV (05:51)
[2022-04-03] MEDS: Sodium Chloride 0.9% for Inhalation 3 ML VIAL (05:52)
[2022-04-03] MEDS: MIDAZOLAM 50 MG in Normal Saline 90 ML 6.348 MG IV (05:53)
[2022-04-03] MEDS: Normal Saline Flush 10 ML SYR IVP ×4 (05:53→18:11)
[2022-04-03] MEDS: Acetaminophen 650 MG SUPP PR (06:00)
[2022-04-03 06:24] LABS: HCT 39.2 % (40.0-50.0); HGB 12.7 g/dL (13.5-17.5); MCH 29.3 pg (27.0-33.0); MCHC 32.4 % (32.0-36.0); MCV 90 fL (80-95); MPV 10.6 fL (8.0-11.0); Platelet Count 187 10^3/uL (130-400); RBC 4.34 10^6/uL (4.36-5.78); RDW 13.7 % (11.8-14.1); RDW-SD 45.2 fL
[2022-04-03 06:44] LABS: ALT 11 U/L (16-63); AST 19 U/L (15-37); Albumin 3.5 g/dL (3.4-5.0); Alkaline Phosphatase 74 U/L (46-116); Anion Gap 7.3 mmol/L (3-11); BUN 21 mg/dL (7-18); Bilirubin, Total 0.9 mg/dL (0.2-1.0); CO2 27.7 mmol/L (21.0-32.0); CREATININE 1.1 mg/dL (0.70-1.30); Calcium 8.9 mg/dL (8.5-10.1); Chloride 104 mmol/L (98-107); Estimated GFR 90.34 (mL/min/1.73m2); Glucose 108 mg/dL (74-106); Potassium 3.8 mmol/L (3.5-5.1); Sodium 139 mmol/L (136-145); Total Protein 6.8 g/dL (6.4-8.2)
[2022-04-03] MEDS: PROPOFOL 1,000 MG/100 ML BTL 62.16 MG IV (06:47)
--- NOTE | 2022-04-03 07:45 | RT.EKG_ITS ---
APPROVED REPORT Exam: Resting ECG Reason for Exam: troponin elevation Patient Location: I HR:84 bpm ECG Measurements Heart Rate 84 AXIS WY 150 P 38 QRSd 95 QRS -8 QT 427 T 36 QTc 505 Conclusion Sinus rhythm...normal P axis, V-rate 50- Normal Electrocardiogram
[2022-04-03] MEDS: Pantoprazole 40 MG VIAL IVP (08:39)
--- NOTE | 2022-04-03 08:45 | PUCC_ITS ---
General Date of Service Date of service: 04/03/22 Time of Service: 07:30 Reason for Admission to ICU: Overdose Hypoxic respiratory failure Assessment and Plan Assessment and plan (1) Aspiration pneumonia: Status: Acute (2) Polysubstance abuse: Status: Acute (3) Elevated troponin: Status: Acute (4) Demand ischemia: Status: Acute (5) Respiratory failure with hypoxia: Status: Acute (6) Hydronephrosis: Status: Acute (7) Overdose: Status: Acute Assessment and plan: This is a 36 yo admitted to the ICU for overdose resulting in hypoxic respiratory failure likely due to a significant aspiration. His tox screen was positive for cocaine (which likely explains the troponin elevation), although fentanyl or xylazine (commonly being added to fentanyl in the [facility] recently) would not be detected on out tox assay. He did have a significant aspi ration event and is covered with ceftriaxone. He did well on SBT this morning at 10/5 and 45%. His requirements are still on the high side to consider extubation, and would like to allow more drug clearance. He was on a versed drip this morning that will inevitably delay extubation so I stopped this. He did have left hydro on his CT scan and so I will order a CT urogram to investigate this further. Recommendations Pulmonary: Hypoxic respiratory failure - lung protective ventilation - 6-8cc/kg - I put in settings on the MV order this morning - albuterol QID - Duonebs prn Cardiac: Demand ischemia - multifactorial: hypoxia and cocaine use - repeat troponin and EKG this morning Renal: Left hydronephrosis - UA with reflex culture - CT urogram - if obstructive recommend urology consultation - no 'maintenance' IVF needed - LR bolus to replace insensible losses as needed I&O: Intake & Output 03/31/22 04/01/22 04/02/22 04/03/22 23:59 23:59 23:59 23:59 Intake Total 609.797 / 835.320 9107.027 / 1335.027 Output Total 975 / 975 700 / 700 Balance -365.203 / -365.203 635.027 / 635.027 Weight 103.6 kg 103.6 kg Daily Fluid Goal:: even GI Nutrition: NPO for now given massive aspiration - if not extubated tomorrow, will start tube feeds Infectious Disease: Aspiration Pneumonia - on ceftriaxone which is sufficient - procal is elevated - recommend sputum and blood cultures Hematologic: No acute concerns Neurologic: Polysubstance overdose - supportive care - propofol and Precedex for sedation - will add Zyprexa 5mg PO bid - DC Versed - please avoid - fentanyl 50mcg q2h prn - if still agitated recommend adding ketamine: - ideally drip at 10-20mg/hr - if not able to give drip then 25mg q2h prn - on Keppra out of concern for seizure activity in ED - likely un-needed but can have neurology weigh in once patient extubated Endocrine: No acute concerns Lines: PIV Graf ETT Prophylaxis: heparin Protonix Code Status: Resuscitation Status Full Code Subjective Critical and life-threatening events over the past 24 hours: This is a 36 yo man admitted to the ICU for a likely narcotic overdose. He is intubated and receiving mechanical ventilation. He also had an aspiration event resulting in hypoxia. His vital signs are stable, as are his labs with the exception of an elevated troponin. His EKG has nonspecific changes. His C/A/P CT found bilateral consolidations consistent with aspiration as well as a mild left hydronephrosis with no sign of calcific obstruction. His tox screen was positive for cocaine and benzo's but negative for opiates (would not pick pack worker fentanyl or xylazine). His head CT was negative. On my assessment he is over sedated. Per nursing he awoke this morning and was agitated. Exam Narrative Exam Narrative: Gen: NAD, normal respiratory effort, well-nourished HENT: Pinpoint pupils Chest: No respiratory distress, normal appearance of chest, clear to auscultation bilaterally, no crackles or wheezes, normal inspiratory effort Heart: regular rate and rhythym, no murmurs, rubs or gallops Abdomen: Non-distended, soft, non tender Extremities: No clubbing, edema, cyanosis. On the left flank there is a linear rash of blisters approx 10cm long Neuro: sedated and intubated Psych: sedated and intubated Most Recent VS/Results Last Vital Signs Temp 38 C H 04/03/22 06:00 Pulse 78 04/03/22 07:01 Resp 34 H 04/03/22 07:01 BP 120/61 04/03/22 07:01 Pulse Ox 96 04/03/22 07:01 Laboratory Results - last 24 hr 04/02/22 04/02/22 04/02/22 10:30 10:30 10:30 WBC 15.90 H RBC 4.61 Hgb 13.9 Hct 41.1 MCV 89 MCH 30.2 MCHC 33.8 RDW 13.5 Plt Count 319 MPV 9.7 Immature Gran % 0.5 Neutrophils % 88.2 Lymphocytes % 6.5 Monocytes % 4.3 Eosinophils % 0.1 Basophils % 0.4 Nucleated RBC % 0.0 Absolute Neutrophils 14.02 H Absolute Lymphocytes 1.03 L Absolute Monocytes 0.68 Absolute Eosinophils 0.02 Absolute Basophils 0.06 VBG pH VBG pCO2 VBG pO2 VBG HCO3 VBG Total CO2 VBG O2 Saturation VBG Base Excess Sodium 140 Potassium 3.3 L Chloride 101 Carbon Dioxide 29.2 Anion Gap 9.8 BUN 19 H Creatinine 1.4 H Est GFR (CKD-EPI 2020) 67.64 Glucose 139 H Calcium 9.5 Magnesium 1.8 Total Bilirubin 0.4 AST 12 L ALT 17 Alkaline Phosphatase 86 Troponin I 134 H* Total Protein 7.6 Albumin 4.1 Procalcitonin Salicylates 2.8 Urine Opiates Screen Urine Methadone Screen Acetaminophen < 2 Ur Barbiturates Screen Ur Tricyclics Screen Ur Amphetamines Screen U Benzodiazepines Scrn Urine Cocaine Screen Ur THC Screen Ethyl Alcohol < 3.0 COVID-19 Source SARS-CoV-2 (PCR) Add-On Test Request 04/02/22 04/02/22 04/02/22 10:49 10:56 12:40 WBC RBC Hgb Hct MCV MCH MCHC RDW Plt Count MPV Immature Gran % Neutrophils % Lymphocytes % Monocytes % Eosinophils % Basophils % Nucleated RBC % Absolute Neutrophils Absolute Lymphocytes Absolute Monocytes Absolute Eosinophils Absolute Basophils VBG pH Cancelled 7.37 VBG pCO2 Cancelled 51 VBG pO2 Cancelled 170 VBG HCO3 Cancelled 29 H VBG Total CO2 Cancelled VBG O2 Saturation Cancelled > 99 VBG Base Excess Cancelled 4 H Sodium Potassium Chloride Carbon Dioxide Anion Gap BUN Creatinine Est GFR (CKD-EPI 2020) Glucose Calcium Magnesium Total Bilirubin AST ALT Alkaline Phosphatase Troponin I Total Protein Albumin Procalcitonin Salicylates Urine Opiates Screen Urine Methadone Screen Acetaminophen Ur Barbiturates Screen Ur Tricyclics Screen Ur Amphetamines Screen U Benzodiazepines Scrn Urine Cocaine Screen Ur THC Screen Ethyl Alcohol COVID-19 Source Nasal/Nares SARS-CoV-2 (PCR) Negative Add-On Test Request 04/02/22 04/02/22 04/02/22 13:15 14:30 18:28 WBC RBC Hgb Hct MCV MCH MCHC RDW Plt Count MPV Immature Gran % Neutrophils % Lymphocytes % Monocytes % Eosinophils % Basophils % Nucleated RBC % Absolute Neutrophils Absolute Lymphocytes Absolute Monocytes Absolute Eosinophils Absolute Basophils VBG pH VBG pCO2 VBG pO2 VBG HCO3 VBG Total CO2 VBG O2 Saturation VBG Base Excess Sodium Potassium Chloride Carbon Dioxide Anion Gap BUN Creatinine Est GFR (CKD-EPI 2020) Glucose Calcium Magnesium Total Bilirubin AST ALT Alkaline Phosphatase Troponin I 676 H* 946 H* Total Protein Albumin Procalcitonin Salicylates Urine Opiates Screen Negative Urine Methadone Screen Negative Acetaminophen Ur Barbiturates Screen Negative Ur Tricyclics Screen Negative Ur Amphetamines Screen Negative U Benzodiazepines Scrn Positive A Urine Cocaine Screen Positive A Ur THC Screen Negative Ethyl Alcohol COVID-19 Source SARS-CoV-2 (PCR) Add-On Test Request 04/02/22 04/02/22 04/03/22 18:28 18:28 05:25 WBC RBC Hgb Hct MCV MCH MCHC RDW Plt Count MPV Immature Gran % Neutrophils % Lymphocytes % Monocytes % Eosinophils % Basophils % Nucleated RBC % Absolute Neutrophils Absolute Lymphocytes Absolute Monocytes Absolute Eosinophils Absolute Basophils VBG pH VBG pCO2 VBG pO2 VBG HCO3 VBG Total CO2 VBG O2 Saturation VBG Base Excess Sodium 139 Potassium 3.8 Chloride 104 Carbon Dioxide 27.7 Anion Gap 7.3 BUN 21 H Creatinine 1.1 Est GFR (CKD-EPI 2020) 90.34 Glucose 108 H Calcium 8.9 Magnesium Total Bilirubin 0.9 AST 19 ALT 11 L Alkaline Phosphatase 74 Troponin I Total Protein 6.8 Albumin 3.5 Procalcitonin 0.9 Salicylates Urine Opiates Screen Urine Methadone Screen Acetaminophen Ur Barbiturates Screen Ur Tricyclics Screen Ur Amphetamines Screen U Benzodiazepines Scrn Urine Cocaine Screen Ur THC Screen Ethyl Alcohol COVID-19 Source SARS-CoV-2 (PCR) Add-On Test Request DONE 04/03/22 05:25 WBC 10.70 RBC 4.34 L Hgb 12.7 L Hct 39.2 L MCV 90 MCH 29.3 MCHC 32.4 RDW 13.7 Plt Count 187 MPV 10.6 Immature Gran % Neutrophils % Lymphocytes % Monocytes % Eosinophils % Basophils % Nucleated RBC % Absolute Neutrophils Absolute Lymphocytes Absolute Monocytes Absolute Eosinophils Absolute Basophils VBG pH VBG pCO2 VBG pO2 VBG HCO3 VBG Total CO2 VBG O2 Saturation VBG Base Excess Sodium Potassium Chloride Carbon Dioxide Anion Gap BUN Creatinine Est GFR (CKD-EPI 2020) Glucose Calcium Magnesium Total Bilirubin AST ALT Alkaline Phosphatase Troponin I Total Protein Albumin Procalcitonin Salicylates Urine Opiates Screen Urine Methadone Screen Acetaminophen Ur Barbiturates Screen Ur Tricyclics Screen Ur Amphetamines Screen U Benzodiazepines Scrn Urine Cocaine Screen Ur THC Screen Ethyl Alcohol COVID-19 Source SARS-CoV-2 (PCR) Add-On Test Request Review of Systems Unobtainable due to endotracheal tube Time spent with patient Time spent in Critical Care: 50 Time spent in Critical care included: Coordination of care, Chart review, Documenting critically ill care, Time at immediate bedside and Discussing critically ill care with other medical staff Multi-Disciplinary Checklist Lines/Tubes CENTRAL LINE: no ARTERIAL LINE: no GRAF: yes, Graf Day#: 1 ENDOTRACHEAL TUBE: yes, Endotracheal Tube Day#: 1 Sedation: yes, Sedation Vacation: yes Head of Bed@30 degrees: yes Spontaneous Breathing Trial: yes ICU Maintenance GLUCOSE 140-180mg/dL: yes NUTRITION AT GOAL: no, Reason/Intervention: will start tube feeds tomorrow if not extubated PRESSURE ULCER: no RESTRAINTS: yes, Reviewed Necessity: Yes ANTIBIOTICS(if yes, consider Stewardship): Yes Social Issues FAMILY UPDATED: no, Reason/Intervention: no next of kin known PT/OT: no, Reason/Intervention: not appropriate today GOALS/DISPOSITION/SENIOR PHP SOFTWARE DEVELOPER: yes CODE STATUS: Full Prophylaxis DVT PROPHYLAXIS: yes GI PROPHYLAXIS: yes, Indication: intubated
--- NOTE | 2022-04-03 09:50 | NUR.NOTE ---
Per patient record from primary care office in [facility], patient only has tdap vaccine. Patient intubated and not able to answer question of if he has any other vaccines. Nursing Note:
[2022-04-03] MEDS: Omnipaque 350 MG/ML 500 ML BTL-Imaging package 100 ML IJ (10:13)
[2022-04-03] MEDS: Normal Saline - Diluent 50 ML VIAL IV (10:14)
--- NOTE | 2022-04-03 10:18 | DI.CT_ITS ---
Exam(s) CT ABDOMEN PELVIS WO/W EXAM: CT ABDOMEN PELVIS WO/W TECHNIQUE: Imaging Protocol: Axial computed tomography images with coronal and sagittal reformatted images were created and reviewed. Images were performed from the lung bases through the ischial tuberosities before IV contrast and fol lowing IV contrast using a 70 second delay, followed by 7 minutes delayed images. Additional 15 danna baron delayed images also performed. CONTRAST MATERIAL: Intravenous: Omnipaque 350 Contrast volume:100 cc Oral: no COMPARISON: CT CT CHEST/ABD/PEL W from 04/02/2022 FINDINGS: Exam mildly limited by patient motion. ABDOMEN: Lung Bases: Small bilateral pleural effusions and adjacent basilar atelectasis versus infiltrates, le ft greater than right. Liver: Normal density. No measurable mass. Gallbladder and biliary tract: No radiodense calculus or dilation. Pancreas: Normal density, no abnormal calcifications or inflammatory process. Spleen: Normal. Kidneys: Normal size, contour and axis. No suspicious masses seen. Noncontrast images show small amou nt of residual contrast in the upper and lower pole collecting systems of the left kidney. Punctate nonobstructing stone at the upper pole of the left kidney. No change in dilated left renal pelvis an d mild calyceal dilatation with abrupt cutoff at the ureteropelvic junction. No visible obstructing stone or mass. Slight delay in left nephrogram. Adrenal glands: No masses seen. Lymph nodes: Within normal limits. Abdominal Aorta: Abdominal portion non-dilated. Soft tissues: Unremarkable. PELVIS: Bladder: Pepper catheter. Noncontrast images show a small amount of residual contrast from the previo us day's scan. No gross wall thickening. No evidence of a mass.No evidence of calculi. Bowel: Nasogastric tube in stomach. No obstruction or bowel wall thickening. Appendix normal. Large quantity of stool throughout colon. Peritoneal cavity: No ascites, collection or mesenteric inflammatory response. Soft tissues: Bones: Unremarkable for age.. Reproductive organs: Unremarkable for age.. 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 No obstructing stone or mass visible. RADIATION DOSE DELIVERED: Total DLP DATA REPOSITORY: All CT scans at this facility are submitted to the National Radiology Data Registry (NRDR) Dose Index Registry (DIR) with the [employer] (A[employer]). RADIATION OPTIMIZATION: All CT scans at this facility use at least one of these dose optimization te chniques: automated exposure control; mA and/or kV adjustment per patient size (includes targeted exa ms where dose is matched to clinical indication); or iterative reconstruction.
--- NOTE | 2022-04-03 10:31 | DI.US_ITS ---
APPROVED REPORT EXAM: Comprehensive 2D, Doppler, and color-flow Echocardiogram Patient Location: In-Patient Room/Bed: LNJ885 Avionics Test Technician: Kandice Saldivar RDCS (AE) Indications: Altered mental status, Elevated troponin, Polysub use Other Information Study Quality: Fair. Technically limited study due to inability to position patient, patient on venti lator. Conclusion Left ventricle is borderline dilated. Wall thickness is normal. There is global hypokinesis with an estimated ejection fraction of 35%. There may be an apical wall motion abnormality Normal right ventricular size and systolic function Both atria are normal in size There is no structural or hemodynamically significant valvular disease identified Estimated right ventricular systolic pressure is normal, approximately 22 mmHg Wall motion Left Ventricle Left ventricle is mildly dilated. Left ventricular systolic function is moderately decreased. There i s normal left ventricular wall thickness. There is global hypokinesis of the left ventricle. There is no ventricular septal defect visualized. LVEF is 35%. Right Ventricle Right ventricle is grossly normal in size. Right ventricular systolic function is grossly normal. Atria The left atrium size is normal. The right atrium size is normal. The interatrial septum is intact wit h no evidence for an atrial septal defect. Aortic Valve The aortic valve is normal in structure. There is no aortic valvular stenosis. No aortic regurgitatio n is present. Mitral Valve The mitral valve is normal in structure. No evidence of mitral valve stenosis. Trace mitral regurgita tion. Tricuspid Valve The tricuspid valve is normal in structure. There is no tricuspid valve stenosis. Trace tricuspid reg urgitation. Pulmonic Valve The pulmonary valve is normal in structure. There is no pulmonic valvular stenosis. Trace pulmonic re gurgitation. Great Vessels The aortic root is normal in size. The ascending aorta is normal in size. Aortic arch is not well vis ualized. The IVC collapses <50% with vent. Pericardium There is no pericardial effusion. 2D Dimensions IVSD d PLAX 0.90 cm M: 0.6-1.2 LV Vol A2C d MOD 153.5 mL LVPW d PLAX 0.90 cm M: 0.6 - 1.2 LV Vol A4C d MOD 146.5 mL LVID d PLAX 5.97 cm M: 4.2 - 5.8 LA vol/ BSA A2C s A-L 25.2 mL/m2 LVDs 4.95 cm M: 2.5 - 4.0 LA vol/ BSA A4C s A-L 23.2 mL/m2 Ao Root d 3.00 cm M: 3.1 - 3.7 LA Vol/ BSA Biplane s A-L 26.0 mL/m2 RA Area A4C 15.14 cm2 LA Area A4C s MOD 18.28 cm2 RA Vol/ BSA A4C s A-L 18.7 mL/m2 LA Area A2C s MOD 17.75 cm2 Ao Asc Diam d 2.94 cm M: 2.6 - 3.4 LV EF A4C MOD 34.9 % LV EF Teichholz 34.7 % LV EF A2C MOD 35.7 % LVEF (Garay's) 35.25 % M: 52 - 72 LV EF Biplane MOD 35.2 % LV Volume 109.37 mL M: 62 - 150 SV 53.04 mL LV Volume Index 49.48 mL/m2 M: 34 - 74 SV Index 24.07 mL/m2 LV Vol Biplane MOD 150.5 mL FS 16.85 % M-Mode TAPSE 1.70 cm (M/F) >1.7 LV Diastology MV E' medial 0.092 (>0.07 m/s) E/A Ratio 1.4 LV E/e MED 6.90 (<14) MV E Vmax 0.64 (0.4-1.3 m/s) MV E' lateral 0.118 (>0.1 m/s) MV A Vmax 0.45 (0.4-1.3 m/s) LV E/e LAT 5.35 (<14) MV E/A Ratio 1.39 MV E/E' medial 6.92 MV E/E' lateral 5.39 Aortic Valve LVOT Area 3.63 cm2 AoV Area Vmax 3.28 cm2 LVOT Vmax 1.00 m/s AoV Area/ BSA (Vmax) 1.49 cm2/m2 LVOT Mean John. 0.69 m/s LETTY Mean John. 2.84 cm2 LVOT Peak Grad 4.0 mmHg LETTY Mean John. Index 1.29 cm2/m2 LVOT Mean Grad 2.2 mmHg LVOT VTI 0.192 m LVOT Diam s 2.15 cm AoV Vmax 1.10 m/s Velocity Ratio 0.90 AoV Mean John. 0.88 m/s AoV Peak Grad 4.9 mmHg LVOT SV 69.66 mL AoV Mean Grad 3.3 mmHg AoV VTI 0.206 m AoV Area VTI 3.38 cm2 AoV Area/ BSA (VTI) 1.53 cm/m2 Mitral Valve MV DT 269 (160-240 msec) MV PHT 78 msec MV Area PHT 2.82 cm2 MV VTI 0.202 m MV Area VTI 3.44 (4.0-6.0 cm2) Pulmonary Valve PV Vmax 0.97 (0.5-1.5 m/s) RVOT Peak Gr. 1.68 mmHg PV Peak Grad 3.8 mmHg RVOT Mean Gr. 0.90 mmHg PV Mean Grad 1.7 mmHg RVOT VTI 0.141 m PV VTI 0.173 m RVOT Vmax 0.65 m/s Tricuspid Valve TR Peak Grad 16.8 mmHg TR Vmax 2.05 m/s
[2022-04-03] MEDS: PROPOFOL 1,000 MG/100 ML BTL 31.5 MG IV ×2 (10:34→13:19)
--- NOTE | 2022-04-03 10:45 | NUR.NOTE ---
Nursing Note: Accessed patient chart to determine how many EKG orders were in the chart from the ED. There was an outstanding EKG in ordered status. There are no EKG's in the [facility] system that are outstanding. EKG order was deleted.
[2022-04-03] MEDS: levETIRAcetam 1,000 MG in Normal Saline 100 ML 400 MG IVPB ×2 (10:54→21:31)
--- NOTE | 2022-04-03 11:20 | PDOC.CMIN ---
- If Service Date Differs Date of service: 04/03/22 Time of Service: 11:20 Care Management Initial Assess REASON FOR HOSPITALIZATION:: Obtunded state, overdose of unknown substances PAST MEDICAL HISTORY/PAST SURGICAL HISTORY:: All Active Problems. Aspiration pneumonitis (Acute). Polysubstance abuse (Acute). Overdose (Acute). Altered mental status (Acute). Elevated troponin (Acute). No-show for appointment (Acute). Closed right clavicular fracture (Acute 01/18/22). Thrombosed external hemorrhoid (Acute). Opioid abuse (Acute). Obesity, Class II, BMI 35-39.9 (Acute). Internal hemorrhoid (Acute). Medical History. Asthma. Surgical History. No pertinent past surgical history PREVIOUS FUNCTIONAL STATUS/SOCIAL/FAMILY SUPPORTS:: Scotty lives in [place], alone. He has a cousin, Greg, who lives nearby in [place]. He is independent at baseline, and receives support from [place]. CURRENT FUNCTIONAL STATUS:: Scotty is intubated currently, therefore CM was unable to communicate with him. Per report, he will have a weaning trial tomorrow, and he remains stable. CM will meet with him once he is able to communicate, and will continue follow. ADVANCE DIRECTIVES:: Not on file. Has patient been provided with info about the portal/API?: No Did the patient sign up for the portal?: No CODE STATUS:: Full Code INSURANCE COVERAGE / FINANCIAL ISSUES:: [facility] CURRENT HOME/COMMUNITY SERVICES/EQUIPMENT:: [facility] PRIMARY CARE PHYSICIAN:: Tc Minaya POTENTIAL DISCHARGE NEEDS:: Evaluation for further needs, follow up appointments, last dose letter for JENNI. PATIENT/FAMILY EDUCATION NEEDS:: Review disharge instructions and limitations, discussion of self care needs including ask me three. ANTICIPATED BARRIERS TO DISCHARGE:: None identified. TRANSPORTATION:: Likely via private vehicle. PLAN:: Scotty is intubated and being closely monitored at ICU level of care. He will likely have a breathing trial tomorrow. CM will meet with him once he can communicate to determine his needs. He will likely discharge home once he is medically cleared. He will follow up with his PCP and discharge plan of care. CM will continue to follow.
[2022-04-03 11:57] LABS: Troponin I 675 ng/L (<or=60)
[2022-04-03] MEDS: Albuterol 2.5 MG/3 ML INH SOLN VIAL UPD ×3 (12:28→19:50)
--- NOTE | 2022-04-03 14:36 | W.PM.PROGNOT ---
Date of Service Date of service: 04/03/22 Time of Service: 14:36 Assessment and Plan Assessment and plan (1) Polysubstance abuse: Status: Acute Assessment and plan: UDS + for THC. Fentanyl tabs and crushed fentanyl with paraphenalia found on his person. Unsure of frequency and amount of his usage of fentanyl. (2) Overdose: Status: Acute Assessment and plan: NOw intubated for obtunded state and concerns for inability to protect airway. CXR shows likely aspiration. (3) Altered mental status: Status: Acute Assessment and plan: D/T substance abuse / ingestion. (4) Asthma: Assessment and plan: PRN albuterol updrafts. (5) Aspiration pneumonitis: Status: Deleted Assessment and plan: Infection vs inflammation. WBC count elevated but not necessarily indicative of infection. Did initiate Rocephin. WBC count normalized. Monitor. (6) Demand ischemia: Status: Acute Assessment and plan: Troponin peaked at 946 then decreased. Demand ischemia d/t cocaine use and hypoxia. (7) Hydronephrosis: Status: Acute Assessment and plan: CT urogram showed dilated left renal pelvis and calices with appearance consistent with a mild chronic ureteral pelvic junction obstruction.? No obstructing stone or mass visible. UA negative. Subjective Subjective Patient reports: denies diarrhea Interval history since last seen: Intubated and sedated. Temp this AM of 38.1. Exam Narrative Exam Narrative: Pt intubated. Sedated. Const General: no acute distress Nutritional Appearance: overweight Eyes General: appearance normal, both eyes and all related structures Sclera: sclerae normal Pupils: pupil size (3mm) Resp Effort & Inspection: normal respiratory effort Auscultation: rhonchi (soft upper airway) Cardio Rate: tachycardic Rhythm: regular rhythm GI Inspection: normal to inspection Palpation: soft Skin Rashes: no rashes Full body images: 1. Several blisters; largest 1 in. diameter. Neuro General: no focal motor deficits (spontaneous movement of all exts noted) Cranial Nerves: facial strength normal Objective Last Vital Signs Temp 37.4 C 04/03/22 07:00 Pulse 90 04/03/22 14:31 Resp 19 04/03/22 14:31 BP 115/77 04/03/22 14:31 Pulse Ox 95 04/03/22 14:31 Laboratory Results - last 24 hr 04/02/22 04/02/22 04/02/22 13:15 14:30 18:28 WBC RBC Hgb Hct MCV MCH MCHC RDW Plt Count MPV Sodium Potassium Chloride Carbon Dioxide Anion Gap BUN Creatinine Est GFR (CKD-EPI 2020) Glucose Calcium Total Bilirubin AST ALT Alkaline Phosphatase Troponin I 676 H* 946 H* Total Protein Albumin Procalcitonin Urine Opiates Screen Negative Urine Methadone Screen Negative Ur Barbiturates Screen Negative Ur Tricyclics Screen Negative Ur Amphetamines Screen Negative U Benzodiazepines Scrn Positive A Urine Cocaine Screen Positive A Ur THC Screen Negative Add-On Test Request 04/02/22 04/02/22 04/03/22 18:28 18:28 05:25 WBC RBC Hgb Hct MCV MCH MCHC RDW Plt Count MPV Sodium 139 Potassium 3.8 Chloride 104 Carbon Dioxide 27.7 Anion Gap 7.3 BUN 21 H Creatinine 1.1 Est GFR (CKD-EPI 2020) 90.34 Glucose 108 H Calcium 8.9 Total Bilirubin 0.9 AST 19 ALT 11 L Alkaline Phosphatase 74 Troponin I Total Protein 6.8 Albumin 3.5 Procalcitonin 0.9 Urine Opiates Screen Urine Methadone Screen Ur Barbiturates Screen Ur Tricyclics Screen Ur Amphetamines Screen U Benzodiazepines Scrn Urine Cocaine Screen Ur THC Screen Add-On Test Request DONE 04/03/22 04/03/22 05:25 11:00 WBC 10.70 RBC 4.34 L Hgb 12.7 L Hct 39.2 L MCV 90 MCH 29.3 MCHC 32.4 RDW 13.7 Plt Count 187 MPV 10.6 Sodium Potassium Chloride Carbon Dioxide Anion Gap BUN Creatinine Est GFR (CKD-EPI 2020) Glucose Calcium Total Bilirubin AST ALT Alkaline Phosphatase Troponin I 675 H* Total Protein Albumin Procalcitonin Urine Opiates Screen Urine Methadone Screen Ur Barbiturates Screen Ur Tricyclics Screen Ur Amphetamines Screen U Benzodiazepines Scrn Urine Cocaine Screen Ur THC Screen Add-On Test Request
[2022-04-03 16:22] LABS: Bilirubin Negative (Negative); Blood Large (Negative); Clarity Cloudy (Clear); Glucose Negative (Negative); Ketones Negative (Negative); Leukocyte Esterase Negative (Negative); Nitrite Negative (Negative); Specific Gravity 1.015 (1.005-1.025); Urobilinogen 0.2 EU/dL (Up TO 0.2); pH 6.5 (5-8)
[2022-04-03 16:28] LABS: Bacteria Negative HPF (Negative); Crystals Negative HPF (Negative); Epithelial Cells Rare HPF (Negative); Mucus Trace (Negative); RBC >50 HPF (0-2); WBC 0-2 HPF (0-5)
[2022-04-03 16:29] LABS: C & S Indicated? No
[2022-04-03] MEDS: dexmedeTOMidine IN 0.9 % NACL 400 MCG/100 ML BTL 7.935 MCG IV (16:39)
[2022-04-03] MEDS: PROPOFOL 1,000 MG/100 ML BTL 34.188 MG IV (16:44)
--- NOTE | 2022-04-03 17:57 | PDOC.ANES ---
Date of service: 04/03/22 Time of Service: 17:58 Anesthesia Note Report Anesthesia Note: Called to assess ETT position and possible leaking cuff. RN/RT state cuff pressure was zero, then was low, and did not seem to be holding pressure. Pt. was coughing at this time and RN increased propofol and precedex drips. Upon my arrival, pt. is ventilated on propofol and precedex. He is occasionally coughing large amounts of white sputum requiring inline suctioning of ETT. I set his cuff pressure between 28-32 with respiratory variation and this reading did not foreign exchange student coordinator a 30 minute period. He is supine with HOB elevation around 30 degrees, 30% FiO2 on ventilator and responsive to noxious stimuli. Unable to blot ETT balloon. Pt. given 50mg propofol bolus, placed on 100% FiO2, and 3.8mm flexible videoscope passed through 7.5mm ETT, secured with commercial device at 23cm. Able to visualize ETT about 4-4.5 cm above frank. Noted white secretions intermittently filling bronchi. some suctioned when pt. coughing. I believe the ETT is in good position and cuff seems to be stable. RN will assess cuff pressures every hour and adjust as necessary. RT also aware of findings as well as Dr. Bowden.
[2022-04-03] MEDS: PROPOFOL 1,000 MG/100 ML BTL 43.512 MG IV ×3 (19:39→22:45)
[2022-04-03] MEDS: cefTRIAXone 2 GM/50 ML BAG IVPB (20:24)
--- NOTE | 2022-04-03 23:23 | W.ANESAIR ---
Airway Management Note Procedure Date and Time DO NOT use this note for patients in the OR, Use Intraop Record Instead Date Performed: 04/03/22 Procedure Time: 22:10 Procedure Location Procedure Location: Intensive Care Unit Requesting Provider: Russel Saez Number of Previous Intubation attempts by other providers: 0 Procedure Type Procedure Type: Urgent Pre-Induction Setup Sterility: Hand Hygiene, Surgical Cap and Surgical Mask Preinduction Setup: Standard monitors applied, BVM at bedside, Suction ready, Airway equipment ready, Medications ready, IV/IO access patent & flowing and Post induction medications ready Induction Induction Time: 22:10 Induction setup: Pt. evaluated prior to induction, Head of Bed Elevated and Other (Continued Ventilator AC ) Induction Medications (Indicate Dose Given): Succinylcholine IV Dose:: 100mg and Rocuronium IV Dose:: 10mg Mask Ventilation: None and BiPAP/CPAP/Ventilator Used (Maintained on Ventilator) Induction Comment: Maintained Propofol drip but did administer 50mg bolus from pump. Airway Device Airway Type: Intubation Laryngoscopy: Atraumatic Laryngoscopy and Teeth Intact Airway Grade: 2a Airway Blades: Glidescope 3 Endotracheal Tube: Oral, Cuffed, Bougie Used and 8.0mm ETT Depth Where Secured (cm): 23 Placement Confirmation: Cuff inflated with minimally occlusive pressure, Secured with commercial device, Bilateral breath sounds and ETCO2 waveform present Number of Attempts (See previous attempts in note section): 1 Intubation Comment: Pt. placed on 100% FiO2 in preperation. Muscle relaxant given and GLideScope #3 placed with good view, bougie placed through existing 7.5mm ETT until hold up felt, ETT removed and 8.0mm ETT placed over bougie and placed through cords with no difficulty and secured at same depth as previous. Cuff inflated to pressure <30. Will get confirmation Chest X-Ray. Post Induction Management Post Induction Medications (Indicate Dose Given): Managed by Requesting Provider (Same medications maintained.) Gastric Tube Gastric Tube: Other (Maintained previosu OG tube.) Procedure Complications Procedure Complications: None Procedure Outcome Procedure Outcome: Successful Proceduralist Performed By: Russel Saez
[2022-04-04] VITALS (73 sets, daily range): BP systolic 96–124; BP diastolic 51–84; PULSE 74–100; RESP 1–45; TEMP 36.7–37.9; O2SAT 89–98
--- NOTE | 2022-04-04 00:31 | DI.VRAD_ITS ---
PROCEDURE INFORMATION: Exam: XR Chest Exam date and time: 04/03/2022 11:38 PM Age: 36 years old Clinical indication: Device placement; Ett placement (vent status); Prior surgery; Surgery date: 6+ months; Surgery type: R clavicle; Patient HX: Confirmation of endotracheal tube placement. TECHNIQUE: Imaging protocol: Radiologic exam of the chest. Views: 1 view. COMPARISON: CR XR PORTABLE CHEST AP POST LINE 04/02/2022 4:33 PM FINDINGS: Tubes, catheters and devices: Endotracheal tube tip 4.5 cm above the frank. NG tube tip overlies stomach. Lungs: Minimal basilar atelectasis with no acute pulmonary infiltrate. Pleural spaces: Unremarkable. No pleural effusion. No pneumothorax. Heart/Mediastinum: Unremarkable. No cardiomegaly. Bones/joints: Plate and screws transfix remote fracture deformity of the right clavicle. IMPRESSION: No acute finding. Dictated and Authenticated by: Eduardo Reynolds MD. Ordering:MEHDI Goode MD
[2022-04-04] MEDS: PROPOFOL 1,000 MG/100 ML BTL 49.728 MG IV (00:34)
[2022-04-04] MEDS: dexmedeTOMidine IN 0.9 % NACL 400 MCG/100 ML BTL 13.225 MCG IV (01:00)
[2022-04-04] MEDS: PROPOFOL 1,000 MG/100 ML BTL 43.512 MG IV ×4 (02:35→23:32)
[2022-04-04] MEDS: Heparin 5,000 UNITS/ML VIAL 5000 UNITS SC ×3 (06:18→22:11)
[2022-04-04 07:03] LABS: Anion Gap 6.9 mmol/L (3-11); BUN 13 mg/dL (7-18); CO2 29.1 mmol/L (21.0-32.0); CREATININE 0.9 mg/dL (0.70-1.30); Calcium 8.8 mg/dL (8.5-10.1); Chloride 105 mmol/L (98-107); Estimated GFR 114.93 (mL/min/1.73m2); Glucose 120 mg/dL (74-106); Potassium 3.7 mmol/L (3.5-5.1); Sodium 141 mmol/L (136-145)
[2022-04-04 08:00] LABS: Lab Add On Test DONE
[2022-04-04] MEDS: PROPOFOL 1,000 MG/100 ML BTL 37.8 MG IV (08:00)
[2022-04-04] MEDS: Albuterol 2.5 MG/3 ML INH SOLN VIAL UPD ×4 (08:13→19:43)
[2022-04-04 08:14] LABS: Creatine Kinase 41 U/L (39-308)
[2022-04-04] MEDS: dexmedeTOMidine IN 0.9 % NACL 400 MCG/100 ML BTL 15.5 MCG IV (08:15)
[2022-04-04] MEDS: Pantoprazole 40 MG VIAL IVP (08:36)
[2022-04-04] MEDS: Normal Saline Flush 10 ML SYR IVP (08:37)
--- NOTE | 2022-04-04 08:49 | W.PULMCC ---
General Date of Service Date of service: 04/04/22 Time of Service: 07:30 Reason for Admission to ICU: Overdose Hypoxic respiratory failure Assessment and Plan Assessment and plan (1) Aspiration pneumonia: Status: Acute (2) Polysubstance abuse: Status: Acute (3) Elevated troponin: Status: Acute (4) Encephalopathy: Status: Acute (5) Demand ischemia: Status: Acute (6) Respiratory failure with hypoxia: Status: Acute (7) Hydronephrosis: Status: Acute (8) Overdose: Status: Acute Assessment and plan: This is a 36 yo admitted to the ICU for overdose resulting in hypoxic respiratory failure likely due to a significant aspiration. His tox screen was positive for cocaine (which likely explains the troponin elevation), although fentanyl or xylazine (commonly being added to fentanyl in the [facility] recently) would not be detected on our tox assay. He did have a significant aspiration event and is covered with ceftriaxone. On his sedation vacation he did not have any purposeful movements. He did not follow any commands. There is certainly concern for an anoxic breain injury or potentially seizure. I will repeat a head CT as get an EEG. He should be on the lowest amount of sedation possible to have him to a RASS -1 to 0. His respiratory requirements on the vent improved significantly and he did fine on an SBT of 8/5 today with an FiO2 of 30. Even though his respiratory status is improved, his mental status precludes extubation at this point. Recommendations Pulmonary: Hypoxic respiratory failure - lung protective ventilation - 6-8cc/kg - did fine on SBT this morning - albuterol QID - Duonebs prn Cardiac: Demand ischemia - multifactorial: hypoxia and cocaine use - down trended Renal: Left hydronephrosis - UA with significant blood - CT urogram with chronic hydro, no obstructing stone - LR bolus today of 500-1000cc to make up for insensible losses from OG suctioning I&O: Intake & Output 04/01/22 04/02/22 04/03/22 04/04/22 23:59 23:59 23:59 23:59 Intake Total 609.797 / 111.073 1698.585 / 2213.585 550.437 / 550.437 Output Total 975 / 975 2305 / 2305 950 / 950 Balance -365.203 / -365.203 -91.415 / -91.415 -399.563 / -399.563 Weight 103.6 kg 103.6 kg 98.9 kg Daily Fluid Goal:: even GI Nutrition: Nutrition - stop low intermittent suction - start tube feeds with Jevity at 10cc - up tritration instructions in order - free water 200cc q6h - nutrition consult placed Infectious Disease: Aspiration Pneumonia - on ceftriaxone which is sufficient - procal is elevated - recommend sputum with just few gram positive cocci - blood cultures pending Hematologic: No acute concerns Neurologic: Polysubstance overdose - supportive care - propofol and Precedex for sedation - will add Zyprexa 5mg PO bid - Please avoid Versed - fentanyl 50mcg q2h prn - no signs of true agitation, just discomfort from ETT - on Keppra out of concern for seizure activity in ED Encephalopathy - concern for anoxic injury - repeat head ct today - EEG today - daily sedation vacations Endocrine: No acute concerns Lines: PIV Graf ETT Prophylaxis: heparin Protonix Code Status: Resuscitation Status Full Code Subjective Critical and life-threatening events over the past 24 hours: Patient did not have purposeful movements this morning on sedation wean. He would open eyes, with no tracking. Would not grasp with hands or follow any other commands. He had been off sedation for 15 min at this point and was gagging and coughing at times with rhythmic jaw movements (likely due to tube). He was unable to be extubated. I placed the Precedex back on at 0..4. While I was out of the room nursing stated that he sat up and attempted to pull out the tube. His propofol and Precedex was increased. He does not have a Babinski and he does grimace to pain. He has had a large amount of stomach contents suctioned in the last 12 hours. Last night he had to have the ETT exchanged as there was cuff damage resulting in a significant leak. Exam Narrative Exam Narrative: Gen: NAD, normal respiratory effort, well-nourished HENT: Pinpoint pupils Chest: No respiratory distress, normal appearance of chest, clear to auscultation bilaterally, no crackles or wheezes, normal inspiratory effort Heart: regular rate and rhythym, no murmurs, rubs or gallops Abdomen: Non-distended, soft, non tender Extremities: No clubbing, edema, cyanosis. On the left flank there is a linear rash of blisters approx 10cm long Neuro: sedated and intubated. Off sedation - does not follow commands. Opens eyes but does not track. No Babinski. Grimace to pain. Psych: sedated and intubated Most Recent VS/Results Last Vital Signs Temp 36.7 C 04/04/22 04:16 Pulse 90 04/04/22 08:37 Resp 16 04/04/22 08:37 BP 118/81 04/04/22 08:32 Pulse Ox 92 04/04/22 08:37 Laboratory Results - last 24 hr 04/03/22 04/03/22 04/04/22 11:00 15:05 06:15 Sodium 141 Potassium 3.7 Chloride 105 Carbon Dioxide 29.1 Anion Gap 6.9 BUN 13 Creatinine 0.9 Est GFR (CKD-EPI 2020) 114.93 Glucose 120 H Calcium 8.8 Creatine Kinase Troponin I 675 H* Urine Color Dark Yellow Urine Clarity Cloudy Urine pH 6.5 Ur Specific [place] 1.015 Urine Protein 30 H Urine Ketones Negative Urine Blood Large H Urine Nitrite Negative Urine Bilirubin Negative Urine Urobilinogen 0.2 Ur Leukocyte Esterase Negative Urine RBC >50 H Urine WBC 0-2 Ur Epithelial Cells Rare Urine Crystals Negative Urine Bacteria Negative Urine Casts 0-1 RBC Urine Mucus Trace Ur Culture Indicated? No Urine Glucose Negative Add-On Test Request 04/04/22 04/04/22 06:16 16:15 Sodium Potassium Chloride Carbon Dioxide Anion Gap BUN Creatinine Est GFR (CKD-EPI 2020) Glucose Calcium Creatine Kinase 41 Troponin I Urine Color Urine Clarity Urine pH Ur Specific [place] Urine Protein Urine Ketones Urine Blood Urine Nitrite Urine Bilirubin Urine Urobilinogen Ur Leukocyte Esterase Urine RBC Urine WBC Ur Epithelial Cells Urine Crystals Urine Bacteria Urine Casts Urine Mucus Ur Culture Indicated? Urine Glucose Add-On Test Request DONE Review of Systems Unobtainable due to endotracheal tube Time spent with patient Time spent in Critical Care: 60 Time spent in Critical care included: Coordination of care, Chart review, Documenting critically ill care, Time at immediate bedside and Discussing critically ill care with other medical staff Multi-Disciplinary Checklist Lines/Tubes CENTRAL LINE: no ARTERIAL LINE: no GRAF: yes, Graf Day#: 2 ENDOTRACHEAL TUBE: yes, Endotracheal Tube Day#: 1 (tube exchanged last evening) Sedation: yes, Sedation Vacation: yes Head of Bed@30 degrees: yes Spontaneous Breathing Trial: yes ICU Maintenance GLUCOSE 140-180mg/dL: yes NUTRITION AT GOAL: no, Reason/Intervention: start tube feeds today with nutrition consult PRESSURE ULCER: no RESTRAINTS: yes, Reviewed Necessity: Yes ANTIBIOTICS(if yes, consider Stewardship): Yes Social Issues FAMILY UPDATED: no, Reason/Intervention: maternal cousin? 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
--- NOTE | 2022-04-04 09:15 | NUR.NOTE ---
Charla Fields called regarding this patient claiming to be grandmother of patient. Charla not on [employer] and care management notified of situation and concerns. Phone number [phone] Nursing Note:
[2022-04-04] MEDS: Normal Saline 250 ML 500 ML IV (09:23)
--- NOTE | 2022-04-04 10:13 | W.NUTCONSULT ---
Date of service: 04/04/22 Time of Service: 10:13 Nutritional Consult ASSESSMENT: Scotty with continued intubation secondary to encephalopathy, respiratory failure, aspiration pneumonia following poly substance overdose. BMI indicates overweight status. Estimated Needs: BEE= 1900 x 1.2 = 2280 kcal, 98 g protein, 2940 ml (30 ml/kg) Order received for Jevity 1.2 with goal rate of 50 cc/hour, flushes 200 ml q 6 will provide total of 1440 kcal, 66 g protein, 1700 ml fluid. INTERVENTION: Swtich to Jevity 1.5 to provide higher nutrient intake in less volume. Recommend Jevity 1.5- goal rate @60 cc/hour, flush 240 ml q 4 hours provides total of 2160 kcal, 91 g protein, 2520 ml fluid MONITORING AND EVALUATION: weight, labs Time Spent in Nutritional Counseling and Treatment: 0
[2022-04-04] MEDS: levETIRAcetam 1,000 MG in Normal Saline 100 ML 400 MG IVPB (10:47)
--- NOTE | 2022-04-04 11:06 | CMPROGNOTE_ITS ---
- If Service Date Differs Date of service: 04/04/22 Time of Service: 11:06 Care Management Progress Note S/O: Scotty remains intubated today, and was not able to be extubated as planned. He is having an EEG and CT of his head today. His grandmother, Charla Avina ([phone]), has been reportedly calling the ICU, but they have been unable to provide her with information. His cousin, Greg Parikh, is not available by phone- CM attempted to call and was not able to leave a message (voicemail full). will contact his grandmother after his head CT. CM will continue to follow. A: Scotty is a 36 year old male admitted to [facility] on 04/02/22 for obtunded state, overdose of unknown substance. P: Scotty is intubated and being closely monitored at ICU level of care. CM will meet with him once he can communicate to determine his needs. He will likely discharge home once he is medically cleared. He will follow up with his PCP and discharge plan of care. CM will continue to follow.
[2022-04-04] MEDS: fentaNYL 100 MCG/2 ML VIAL 50 MCG IVP ×3 (12:54→23:00)
[2022-04-04] MEDS: PROPOFOL 1,000 MG/100 ML BTL 44.1 MG IV ×4 (13:15→20:48)
--- NOTE | 2022-04-04 13:50 | DI.CT_ITS ---
Exam(s) CT HEAD WO EXAM: CT HEAD WO CLINICAL HISTORY: AMS. TECHNIQUE: Imaging Protocol: Axial computed tomography images with coronal and sagittal reformatted images were created and reviewed COMPARISON: CT CT HEAD WO from 04/02/2022 FINDINGS: The examination is limited due to patient motion artifact. Ventricles and Extra axial spaces: Normal in size and morphology for the patient's age. Hemorrhage: None. Cerebral parenchyma: No acute territorial infarct is present. Midline shift: None. Brainstem/Cerebellum: Normal. Calvarium: Normal. Visualized Paranasal sinuses/Mastoids: There is a mucous retention cyst or polyp in the right maxilla ry sinus. There is opacification of the right sphenoid sinus. The remaining visualized paranasal si nuses are clear as are the mastoid air cells. Soft Tissues: Unremarkable. IMPRESSION: No acute intracranial process. RADIATION DOSE DELIVERED: Total DLP DATA REPOSITORY: All CT scans at this facility are submitted to the National Radiology Data Registry (NRDR) Dose Index Registry (DIR) with the [employer] (ACR). RADIATION OPTIMIZATION: All CT scans at this facility use at least one of these dose optimization te chniques: automated exposure control; mA and/or kV adjustment per patient size (includes targeted exa ms where dose is matched to clinical indication); or iterative reconstruction.
[2022-04-04] MEDS: dexmedeTOMidine IN 0.9 % NACL 400 MCG/100 ML BTL 18 MCG IV (14:02)
--- NOTE | 2022-04-04 14:28 | W.PM.PROGNOT ---
Date of Service Date of service: 04/04/22 Time of Service: 14:28 Assessment and Plan Assessment and plan (1) Polysubstance abuse: Status: Acute Assessment and plan: UDS + for THC. Fentanyl tabs and crushed fentanyl with paraphenalia found on his person. Unsure of frequency and amount of his usage of fentanyl. (2) Overdose: Status: Acute Assessment and plan: NOw intubated for obtunded state and concerns for inability to protect airway. CXR shows likely aspiration. (3) Altered mental status: Status: Acute Assessment and plan: D/T substance abuse / ingestion. With sedation vacation he did not arouse sufficiently to extubate. EEG performed; results pending. CT head unremarkable. Concerned for possible anoxic brain injury. (4) Asthma: Assessment and plan: PRN albuterol updrafts. (5) Aspiration pneumonitis: Status: Deleted Assessment and plan: Infection vs inflammation. WBC count elevated but not necessarily indicative of infection. Did initiate Rocephin. WBC count normalized. Monitor. (6) Demand ischemia: Status: Acute Assessment and plan: Troponin peaked at 946 then decreased. Demand ischemia d/t cocaine use and hypoxia. + cardiomyopathy with EF of 35% on echocardiogram. Will initiate goal directed therapies when extubated. (7) Hydronephrosis: Status: Acute Assessment and plan: CT urogram showed dilated left renal pelvis and calices with appearance consistent with a mild chronic ureteral pelvic junction obstruction.? No obstructing stone or mass visible. UA negative. Subjective Subjective Interval history since last seen: Intubated. Attempted to wean off ventilator this AM but he did not awaken to a degree where he had any purposeful movement or follow commands. Exam Narrative Exam Narrative: Pt intubated. Sedated. No change in exam from previous day Const General: no acute distress Nutritional Appearance: overweight Eyes General: appearance normal, both eyes and all related structures Sclera: sclerae normal Pupils: pupil size (3mm) Resp Effort & Inspection: normal respiratory effort Auscultation: rhonchi (soft upper airway) Cardio Rate: tachycardic Rhythm: regular rhythm GI Inspection: normal to inspection Palpation: soft Skin Rashes: no rashes Neuro General: no focal motor deficits (spontaneous movement of all exts noted) Cranial Nerves: facial strength normal Objective Last Vital Signs Temp 37.3 C 04/04/22 12:09 Pulse 98 H 04/04/22 12:10 Resp 21 04/04/22 12:10 BP 109/66 04/04/22 12:09 Pulse Ox 94 04/04/22 12:10 Laboratory Results - last 24 hr 04/03/22 04/04/22 04/04/22 15:05 06:15 06:16 Sodium 141 Potassium 3.7 Chloride 105 Carbon Dioxide 29.1 Anion Gap 6.9 BUN 13 Creatinine 0.9 Est GFR (CKD-EPI 2020) 114.93 Glucose 120 H Calcium 8.8 Creatine Kinase 41 Urine Color Dark Yellow Urine Clarity Cloudy Urine pH 6.5 Ur Specific [place] 1.015 Urine Protein 30 H Urine Ketones Negative Urine Blood Large H Urine Nitrite Negative Urine Bilirubin Negative Urine Urobilinogen 0.2 Ur Leukocyte Esterase Negative Urine RBC >50 H Urine WBC 0-2 Ur Epithelial Cells Rare Urine Crystals Negative Urine Bacteria Negative Urine Casts 0-1 RBC Urine Mucus Trace Ur Culture Indicated? No Urine Glucose Negative Add-On Test Request 04/04/22 16:15 Sodium Potassium Chloride Carbon Dioxide Anion Gap BUN Creatinine Est GFR (CKD-EPI 2020) Glucose Calcium Creatine Kinase Urine Color Urine Clarity Urine pH Ur Specific [place] Urine Protein Urine Ketones Urine Blood Urine Nitrite Urine Bilirubin Urine Urobilinogen Ur Leukocyte Esterase Urine RBC Urine WBC Ur Epithelial Cells Urine Crystals Urine Bacteria Urine Casts Urine Mucus Ur Culture Indicated? Urine Glucose Add-On Test Request DONE
--- NOTE | 2022-04-04 16:03 | PHACLINREV_ITS ---
Pharmacy Admission Review - Admission Clinical Review (Last Reviewed 04/04/22 @ 14:57 by Troy Henry NP) Encephalopathy (Acute) Demand ischemia (Acute) Respiratory failure with hypoxia (Acute) Hydronephrosis (Acute) Aspiration pneumonia (Acute) Polysubstance abuse (Acute) Overdose (Acute) Altered mental status (Acute) Elevated troponin (Acute) methadone Allergy (Severe, Verified 03/28/22 15:02) facial swelling Resuscitation Status Full Code Height 6 ft Weight 98.9 kg - Renal Dosing Renal Dosing: BUN 13 mg/dL (7-18) 04/04/22 06:15 Creatinine 0.9 mg/dL (0.70-1.30) 04/04/22 06:15 Medications needing adjustments: Reviewed (crcl = 140. no adjustments needed) - Anticoagulation Anticoagulation: Hgb 12.7 g/dL (13.5-17.5) L 04/03/22 05:25 Hct 39.2 % (40.0-50.0) L 04/03/22 05:25 Plt Count 187 10^3/uL (130-400) 04/03/22 05:25 Creatinine 0.9 mg/dL (0.70-1.30) 04/04/22 06:15 DVT Prophylaxis: Reviewed Medications: Heparin (heparin 5000 units q8h) Therapeutic Anticoagulation: N/A - Opiate Usage Evaluate Pain Scale/Pains Meds: Reviewed (intubated on propofol & dexmedetomidine drips. prn fentanyl per concious sedation policy, 50 mcg given today at 1255 and 1638) - Relevant Labs Sodium 141 mmol/L (136-145) 04/04/22 06:15 Potassium 3.7 mmol/L (3.5-5.1) 04/04/22 06:15 Chloride 105 mmol/L (98-107) 04/04/22 06:15 Magnesium 1.8 mg/dL (1.8-2.4) 04/02/22 10:30 Electrolytes, C-Reactive P, ESR: Reviewed - DM Control DM Control: Glucose 120 mg/dL (74-106) H 04/04/22 06:15 DM Control: Reviewed - Cardiac Review Cardiac Review: Troponin I 675 ng/L (<or=60) H* 04/03/22 11:00 BP, HR, EF%: Reviewed (troponin = 675, demand ischemia/cocaine use) - Qtc Review QTc: Reviewed (QTc = 388 on 04/02, 505 on 04/03 *monitor*) If Elevated, List meds needing intervention: dexmedetomidine does have potential to prolong QT however is necessary for sedation - IV to PO Switch IV Medications: N/A (IV necessary, pt intubated) - Home Meds Home Med List reviewed: Reviewed (per outpatient fill history, it does not a ppear pt takes any home meds but will not be able to confirm due to mental status) - Current meds Current Medication Order Review: Reviewed (propofol drip @44.1 mL/hr, dexmedetomidine @18 mL/hr, phenobarb IV infusion 470 mg given @1700 today.) Antibiotic Activity - Pharmacy Antibiotic Review Pharmacy Antibiotic Activity: 48 hour review (suspected aspiration pneumonia, covered with ceftriaxone 2 g Q24h. continue)
[2022-04-04] MEDS: PHENobarbital 130 MG/ML VIAL IVP ×2 (16:57→20:49)
[2022-04-04] MEDS: dexmedeTOMidine IN 0.9 % NACL 400 MCG/100 ML BTL 17.986 MCG IV (19:45)
[2022-04-04] MEDS: cefTRIAXone 2 GM/50 ML BAG IVPB (20:48)
[2022-04-04] MEDS: OLANZapine 5 MG TAB PO (20:49)
--- NOTE | 2022-04-04 23:02 | PDOC.EEG_ITS ---
Neurology EEG EEG: [facility] Department of Neurology INPATIENT EEG REPORT Date of Recordin04/04/22 Interpreting Physician: Dr. Lesli Hallman Reason for study: Scotty was admitted after being found unresponsive in his car due to presumed OD. He has been intubated for airway protection. At times he has had intermittent spasmodic activity of the extremities for which he was placed on LEV 1gm which has been continued through his stay. He is on propofol and Precedex for sedation. He did not respond during his sedation vacation this am - concerning for subclinical status +/- anoxic brain injury. Current Medications: Current Medications Acetaminophen (Acetaminophen 650 Mg Supp) 650 mg [place] Q4H PRN PRN Last Admin: 04/03/22 06:00 Dose: 650 mg Albuterol Sulfate (Albuterol 2.5 Mg/3 Ml Inh Soln Vial) 2.5 mg UPD QID JAI Last Admin: 04/04/22 19:43 Dose: 2.5 mg Albuterol/Ipratropium (Albuterol/Ipratropium 3 Ml Upd Vial) 3 ml UPD Q4H PRN PRN Chlorhexidine Gluconate (Chlorhexidine Gluconate 0.12% Mouthwash 118 Ml Btl) 0 ml MM BID [facility] Last Admin: 04/04/22 17:56 Dose: 1 applic Dimethicone/Zinc Oxide (Bobbi Protect Cream 142 Gm Tube) 0 gm TP PRN PRN Fentanyl (Fentanyl 100 Mcg/2 Ml Vial) 50 mcg IVP Q2H PRN PRN Last Admin: 04/04/22 23:00 Dose: 50 mcg Folic Acid (Folic Acid 1 Mg Tab) 1 mg PO QAM [facility] Stop: 04/11/22 08:31 Heparin Sodium (Porcine) (Heparin 5,000 Units/Ml Vial) 5,000 units SC Q8H [facility] Last Admin: 04/04/22 22:11 Dose: 5,000 units Sodium Chloride (Saline 500ml Bag) 500 mls @ 0 mls/hr IV PRN PRN Dexmedetomidine/Sodium Chloride (Precedex) 400 mcg in 100 mls @ 5.29 mls/hr IV INFUSION [facility]; Protocol Last Titration: 04/04/22 22:18 Dose: 0.3 mcg/kg/hr, 7.935 mls/hr Ceftriaxone Sodium/Dextrose (Rocephin) 2 gm in 50 mls @ 100 mls/hr IVPB Q24H [facility] Last Infusion: 04/04/22 22:17 Dose: Infused Propofol (Diprivan) 1,000 mg in 100 mls @ 18.648 mls/hr IV INFUSION [facility]; Protocol Last Titration: 04/04/22 22:19 Dose: 50 mcg/kg/min, 31.08 mls/hr Acetaminophen (Ofirmev) 500 mg in 50 mls @ 200 mls/hr IVPB Q6H PRN PRN IV Miscellaneous Supplies (Iv Access) 1 each IV DIRECTED [facility] Multivitamins (Multivitamin Tab) 1 tab PO QAM [facility] Stop: 04/11/22 08:31 Olanzapine (Olanzapine 5 Mg Tab) 5 mg PO BID [facility] Last Admin: 04/04/22 20:49 Dose: 5 mg Pantoprazole Sodium (Pantoprazole 40 Mg Vial) 40 mg IVP Q24H [facility] Last Admin: 04/04/22 08:36 Dose: 40 mg Phenobarbital Sodium (Phenobarbital 130 Mg/Ml Vial) 130 mg IVP DIRECTED PRN PRN Reason: for mild anxiety/agitation Last Admin: 04/04/22 20:49 Dose: 130 mg Sodium Chloride (Normal Saline Flush 10 Ml Syr) 0 ml IVP PRN PRN Last Admin: 04/04/22 08:37 Dose: 50 ml Thiamine HCl (Thiamine 100 Mg Tab) 100 mg PO QAM [facility] Stop: 04/11/22 08:31 METHODS: A 21 channel digitized electroencephalogram was performed in the [facility] Med/Surg Floor or ICU. The 10/20 international system of electrode placement was used and bipolar and referential electrode montages were recorded. In addition to EEG the patient was monitored for EKG and lateral/vertical eye movements. Activation procedures of photic stimulation and hyperventilation were performed if applicable. Video was used during activation procedures and during events where applicable. The duration of the recording was 30 minutes. DESCRIPTION OF EEG: The majority of the recording was made of generalized, moderate-amplitude, polymorphic delta slowing. There was a brief period during the recording of faster activity in the theta and alpha ranges diffusely; however no discernible waking or sleeping background was seen. No epileptiform or seizure activity was seen. Activating Procedures: Photic stimulation was performed which produced no posterior driving response. Hyperventilation was not performed - patient on ventilator. EKG: EKG revealed normal sinus rhythm. INTERPRETATION: This EEG is abnormal due to generalized, arrhythmic, delta slowing. There was no epileptiform or seizure activity seen. PRIOR EEG: none CLINICAL CORRELATION: The background slowing is suggestive of a moderate diffuse cerebral encephalopathy of broad differential including toxic-metabolic etiology. No focal regions of cerebral dysfunction or epileptiform activity was present. Clinical correlation is advised. Lesli Hallman MD
[2022-04-05] VITALS (56 sets, daily range): BP systolic 92–135; BP diastolic 56–90; PULSE 66–101; RESP 1–49; TEMP 31–39.6; O2SAT 92–100
[2022-04-05] MEDS: PHENobarbital 130 MG/ML VIAL IVP ×2 (00:47→05:42)
[2022-04-05] MEDS: PROPOFOL 1,000 MG/100 ML BTL 43.512 MG IV (01:30)
[2022-04-05] MEDS: dexmedeTOMidine IN 0.9 % NACL 400 MCG/100 ML BTL 13.225 MCG IV (02:11)
[2022-04-05] MEDS: PROPOFOL 1,000 MG/100 ML BTL 31.08 MG IV ×2 (03:46→05:37)
[2022-04-05] MEDS: Heparin 5,000 UNITS/ML VIAL 5000 UNITS SC ×3 (05:37→22:27)
[2022-04-05 06:33] LABS: Abs Immature Grans 0.03 10^3/uL (0.0-0.06); Absolute Basophil Count 0.02 10^3/uL (0.0-0.2); Absolute Eosinophil Count 0.06 10^3/uL (0.0-0.7); Absolute Lymphocyte Count 0.47 10^3/uL (1.2-3.4); Absolute Monocyte Count 0.46 10^3/uL (0.1-0.8); Absolute Neutrophil Count 5.88 10^3/uL (1.2-6.7); Basophils % 0.3; Eosinophils % 0.9; HCT 37.5 % (40.0-50.0); HGB 12.3 g/dL (13.5-17.5); Immature Grans % 0.4; Lymphocytes % 6.8; MCHC 32.8 % (32.0-36.0); MCV 92 fL (80-95); MPV 10.2 fL (8.0-11.0); Monocytes % 6.6; Platelet Count 180 10^3/uL (130-400); RDW 13.5 % (11.8-14.1); RDW-SD 45.6 fL; WBC 6.92 10^3/uL (4.4-10.8)
[2022-04-05 06:53] LABS: ALT 7 U/L (16-63); AST 11 U/L (15-37); Albumin 3.3 g/dL (3.4-5.0); Alkaline Phosphatase 66 U/L (46-116); Anion Gap 8.9 mmol/L (3-11); BUN 14 mg/dL (7-18); Bilirubin, Total 0.4 mg/dL (0.2-1.0); CO2 28.1 mmol/L (21.0-32.0); CREATININE 0.8 mg/dL (0.70-1.30); Calcium 8.8 mg/dL (8.5-10.1); Chloride 107 mmol/L (98-107); Glucose 135 mg/dL (74-106); Potassium 3.5 mmol/L (3.5-5.1); Sodium 144 mmol/L (136-145); Total Protein 7.1 g/dL (6.4-8.2)
--- NOTE | 2022-04-05 07:14 | PUCC_ITS ---
General Date of Service Date of service: 04/05/22 Time of Service: 07:14 Reason for Admission to ICU: Overdose Hypoxic respiratory failure Assessment and Plan Assessment and plan (1) Aspiration pneumonia: Status: Acute (2) Polysubstance abuse: Status: Acute (3) Elevated troponin: Status: Acute (4) Encephalopathy: Status: Acute (5) Demand ischemia: Status: Acute (6) Respiratory failure with hypoxia: Status: Acute (7) Hydronephrosis: Status: Acute (8) Overdose: Status: Acute Assessment and plan: This is a 36 yo admitted to the ICU for overdose resulting in hypoxic respiratory failure likely due to a significant aspiration. His tox screen was positive for cocaine (which likely explains the troponin elevation), although fentanyl or xylazine (commonly being added to fentanyl in the [facility]) would not be detected on our tox assay. He did have a significant aspiration event and is covered with ceftriaxone. Although he did not follow many commands, given his age, strength, cough and gag strength and some meaningful interaction I did extubate him. He is being maintained on high flow. He is not speaking and is having hallucinations and the appearance of night terrors. There has been some sputum streaked with blood that I attribute to ETT trauma (had to have tube replacement). Recommendations Pulmonary: Hypoxic respiratory failure - HFNC for 24 hours and then NC if able to wean - albuterol QID - Duonebs prn Cardiac: Demand ischemia - multifactorial: hypoxia and cocaine use - down trended HFrEF - drugs, alcohol? - will need further cardiology evaluation once less critically ill Renal: Left hydronephrosis - UA with significant blood - CT urogram with chronic hydro, no obstructing stone - LR bolus today of 500 given decreased UOP I&O: Intake & Output 04/02/22 04/03/22 04/04/22 04/05/22 23:59 23:59 23:59 23:59 Intake Total 609.797 / 572.097 6246.585 / 2213.585 1887.6114 / 1887.6114 490.648 / 490.648 Output Total 975 / 975 2305 / 2305 2580 / 2805 425 / 425 Balance -365.203 / -365.203 -91.415 / -91.415 -692.3886 / -917.3886 65.648 / 65.648 Weight 103.6 kg 103.6 kg 98.9 kg 102.5 kg Daily Fluid Goal:: even GI Nutrition: Nutrition - NPO - will need speech consultation Infectious Disease: Aspiration Pneumonia - on ceftriaxone which is sufficient - procal is elevated - sputum with just few gram positive cocci - blood cultures pending - recommend repeat CXR tomorrow if able Hematologic: No acute concerns Neurologic: Polysubstance overdose - supportive care - Precedex for sedation - Zyprexa 5mg IV bid - Please avoid Versed - fentanyl discontinued - on Keppra out of concern for seizure activity in ED Encephalopathy - concern for anoxic injury? but head ct x 2 negative - EEG with no seizure activity - phenobarb prn to max cumulative dose of 15mg/kg - unclear etiology, delirium, drugs, withdrawal? Endocrine: No acute concerns Lines: PIV Graf Prophylaxis: heparin Protonix Code Status: Resuscitation Status Full Code Subjective Critical and life-threatening events over the past 24 hours: Yesterday afternoon the patient became more irritable on the ventilator. He was still not responsive in a meaningful way but was breath stacking, tachypnic and mildly agitated. I switched him to ASV even though this was no longer providing lung protective ventilation and started treatment for possible EtOH withdrawal (we do not have a history of the patient but with the setting of an overdose and his discovered cardiomyopathy, it seems plausible). This did improve his synchrony with the vent. This morning I turned off his sedation and put him on a SBT. He eventually was able to open eyes to command and did shake his head yes, two seperate times when asked if he wanted the tube out. He had a strong cough and gag and was able to to easily lift his head off the bed. Although he did not follow any other commands (tracking finger with eyes, squeezing fingers, etc), given his age, strength and improvements from yesterday I did decide to extubate him. I extubated him to high flow given the history of aspiration. Exam Narrative Exam Narrative: Gen: NAD, tachypneic, well-nourished HENT: PATTI Chest: No respiratory distress, normal appearance of chest, clear to auscultation bilaterally, no crackles or wheezes, normal inspiratory effort Heart: regular rate and rhythym, no murmurs, rubs or gallops Abdomen: Non-distended, soft, non tender Extremities: No clubbing, edema, cyanosis. On the left flank there is a linear rash of blisters approx 10cm long Neuro: sedated and intubated. Off sedation - does not follow commands. Opens eyes but does not track. No Babinski. Grimace to pain. Psych: sedated and intubated Most Recent VS/Results Last Vital Signs Temp 37.1 C 04/05/22 00:00 Pulse 85 04/05/22 01:01 Resp 23 04/05/22 06:52 BP 125/84 04/05/22 01:01 Pulse Ox 96 04/05/22 06:52 Laboratory Results - last 24 hr 04/04/22 04/04/22 04/04/22 06:15 06:16 16:15 WBC RBC Hgb Hct MCV MCH MCHC RDW Plt Count MPV Immature Gran % Neutrophils % Lymphocytes % Monocytes % Eosinophils % Basophils % Nucleated RBC % Absolute Neutrophils Absolute Lymphocytes Absolute Monocytes Absolute Eosinophils Absolute Basophils Sodium 141 Potassium 3.7 Chloride 105 Carbon Dioxide 29.1 Anion Gap 6.9 BUN 13 Creatinine 0.9 Est GFR (CKD-EPI 2020) 114.93 Glucose 120 H Calcium 8.8 Total Bilirubin AST ALT Alkaline Phosphatase Creatine Kinase 41 Total Protein Albumin Add-On Test Request DONE 04/05/22 04/05/22 05:40 05:40 WBC 6.92 RBC 4.10 L Hgb 12.3 L Hct 37.5 L MCV 92 MCH 30.0 MCHC 32.8 RDW 13.5 Plt Count 180 MPV 10.2 Immature Gran % 0.4 Neutrophils % 85.0 Lymphocytes % 6.8 Monocytes % 6.6 Eosinophils % 0.9 Basophils % 0.3 Nucleated RBC % 0.0 Absolute Neutrophils 5.88 Absolute Lymphocytes 0.47 L Absolute Monocytes 0.46 Absolute Eosinophils 0.06 Absolute Basophils 0.02 Sodium 144 Potassium 3.5 Chloride 107 Carbon Dioxide 28.1 Anion Gap 8.9 BUN 14 Creatinine 0.8 Est GFR (CKD-EPI 2020) 119.10 Glucose 135 H Calcium 8.8 Total Bilirubin 0.4 AST 11 L ALT 7 L Alkaline Phosphatase 66 Creatine Kinase Total Protein 7.1 Albumin 3.3 L Add-On Test Request Review of Systems Unobtainable due to mental status Time spent with patient Time spent in Critical Care: 60 Time spent in Critical care included: Coordination of care, Chart review, Documenting critically ill care, Time at immediate bedside and Discussing critically ill care with other medical staff Multi-Disciplinary Checklist Lines/Tubes CENTRAL LINE: no ARTERIAL LINE: no GRAF: yes, Graf Day#: 3 ENDOTRACHEAL TUBE: no ICU Maintenance GLUCOSE 140-180mg/dL: yes NUTRITION AT GOAL: no, Reason/Intervention: NPO for safety PRESSURE ULCER: no RESTRAINTS: yes, Reviewed Necessity: Yes ANTIBIOTICS(if yes, consider Stewardship): Yes Social Issues FAMILY UPDATED: no, Reason/Intervention: maternal cousin? - case management to investigate and get contact for meeting PT/OT: no, Reason/Intervention: not appropriate today GOALS/DISPOSITION/TORPEDO SPECIALIST: yes CODE STATUS: Full Prophylaxis DVT PROPHYLAXIS: yes GI PROPHYLAXIS: yes,
[2022-04-05] MEDS: Albuterol 2.5 MG/3 ML INH SOLN VIAL UPD ×4 (07:58→20:24)
--- NOTE | 2022-04-05 09:36 | PDOC.CMPRO ---
- If Service Date Differs Date of service: 04/05/22 Time of Service: 09:36 Care Management Progress Note S/O: Per report, Scotty was successfully extubated today. He appears to be responding to some commands, and not appropriately responding to others. He continues to be closely monitored at ICU level of care. CM was unable to communicate with him today, and has not been successful in contacting his cousin, who is listed on his HIPAA. CM will continue to follow. A: Scotty is a 36 year old male admitted to [facility] on 04/02/22 for obtunded state, overdose of unknown substance. P: Scotty is intubated and being closely monitored at ICU level of care. CM will meet with him once he can communicate to determine his needs. He will likely discharge home once he is medically cleared. He will follow up with his PCP and discharge plan of care. CM will continue to follow.
--- NOTE | 2022-04-05 09:43 | NUR.NOTE ---
Patient is on seizure precautions re: ETOH w/d, He is coughing copious amount of blood tinged sputum post extubation and still protects his airways. Seem to be more responsive to minimal noxious stimuli with eye opening
[2022-04-05] MEDS: Pantoprazole 40 MG VIAL IVP (09:58)
[2022-04-05] MEDS: Normal Saline Flush 10 ML SYR IVP ×2 (09:59→15:29)
[2022-04-05] MEDS: Acetaminophen 650 MG SUPP PR (12:47)
[2022-04-05] MEDS: OLANZapine 10 MG VIAL 5 MG IM ×2 (14:19→20:23)
[2022-04-05 14:33] LABS: Bilirubin Negative (Negative); Blood Small (Negative); Clarity Cloudy (Clear); Glucose Negative (Negative); Ketones Trace mg/dL (Negative); Leukocyte Esterase Negative (Negative); Nitrite Negative (Negative); Specific Gravity 1.025 (1.005-1.025); Urobilinogen 0.2 EU/dL (Up TO 0.2)
[2022-04-05] MEDS: THIAMINE 500 MG in Normal Saline 100 ML 200 MG IVPB ×2 (14:38→22:28)
[2022-04-05] MEDS: Water,Injection,Sterile 10 ML VIAL ×2 (14:39→20:23)
[2022-04-05 14:41] LABS: Bacteria Negative HPF (Negative); C & S Indicated? No; Casts 0-2 Hyaline LPF (Negative); Crystals Moderate Amorphous HPF (Negative); Epithelial Cells Rare HPF (Negative); Mucus Trace (Negative); WBC Negative HPF (0-5)
--- NOTE | 2022-04-05 15:20 | W.PM.PROGNOT ---
Date of Service Date of service: 04/05/22 Time of Service: 15:20 Assessment and Plan Assessment and plan (1) Polysubstance abuse: Status: Acute Assessment and plan: UDS + for THC, cocaine. Fentanyl tabs and crushed fentanyl with paraphenalia found on his person. Unsure of frequency and amount of his usage of fentanyl. Concerned about clinical evidence of withdrawal; unknown alcohol use. Loading dose of phenobarbital given; now prn dosing. (2) Asthma: Assessment and plan: PRN albuterol updrafts. (3) Aspiration pneumonitis: Status: Deleted Assessment and plan: Infection vs inflammation. WBC count elevated but not necessarily indicative of infection. Did initiate Rocephin. WBC count normalized. Monitor. (4) Demand ischemia: Status: Acute Assessment and plan: Troponin peaked at 946 then decreased. Demand ischemia d/t cocaine use and hypoxia. + cardiomyopathy with EF of 35% on echocardiogram. Will initiate goal directed therapies when extubated. (5) Hydronephrosis: Status: Acute Assessment and plan: CT urogram showed dilated left renal pelvis and calices with appearance consistent with a mild chronic ureteral pelvic junction obstruction.? No obstructing stone or mass visible. UA negative. (6) Encephalopathy: Status: Acute Assessment and plan: D/T substance abuse / ingestion. Also concern for potential anoxic brain injury. Extubated. Not following commands. However, still on sedating meds. EEG performed; no seizure activity noted. CT head unremarkable. Precedex;sedation Zyprexa 5mg IV BID Phenobarbital to max of 15mg/kg cumulative dose. Dr Rae would like to avoid Versed. Subjective Subjective Interval history since last seen: Extubated. Doesn't follow commands other than intermittently opening eyes to command. Has not been verbal Exam Narrative Exam Narrative: Short bursts of restlessness. [facility] Head: normocephalic and atraumatic Eyes General: appearance normal, both eyes and all related structures Sclera: sclerae normal Pupils: PERRL Resp Effort & Inspection: normal respiratory effort Auscultation: clear to auscultation bilaterally Cardio Rate: regular rate Rhythm: regular rhythm Heart Sounds: S1 normal, S2 normal and no murmurs GI Inspection: non-distended Palpation: soft Neuro General: no focal motor deficits (moves all extremities spontaneously) Cranial Nerves: other (No facial asymmetry. ) Extrem General: no pedal edema Objective Last Vital Signs Temp 39.6 C H 04/05/22 12:20 Pulse 91 H 04/05/22 13:01 Resp 36 H 04/05/22 13:01 BP 124/72 04/05/22 13:01 Pulse Ox 99 04/05/22 13:01 Laboratory Results - last 24 hr 04/05/22 04/05/22 04/05/22 05:40 05:40 12:40 WBC 6.92 RBC 4.10 L Hgb 12.3 L Hct 37.5 L MCV 92 MCH 30.0 MCHC 32.8 RDW 13.5 Plt Count 180 MPV 10.2 Immature Gran % 0.4 Neutrophils % 85.0 Lymphocytes % 6.8 Monocytes % 6.6 Eosinophils % 0.9 Basophils % 0.3 Nucleated RBC % 0.0 Absolute Neutrophils 5.88 Absolute Lymphocytes 0.47 L Absolute Monocytes 0.46 Absolute Eosinophils 0.06 Absolute Basophils 0.02 Sodium 144 Potassium 3.5 Chloride 107 Carbon Dioxide 28.1 Anion Gap 8.9 BUN 14 Creatinine 0.8 Est GFR (CKD-EPI 2020) 119.10 Glucose 135 H Calcium 8.8 Total Bilirubin 0.4 AST 11 L ALT 7 L Alkaline Phosphatase 66 Total Protein 7.1 Albumin 3.3 L Urine Color Dark Yellow Urine Clarity Cloudy Urine pH 8.0 Ur Specific [place] 1.025 Urine Protein 30 H Urine Ketones Trace H Urine Blood Small H Urine Nitrite Negative Urine Bilirubin Negative Urine Urobilinogen 0.2 Ur Leukocyte Esterase Negative Urine RBC 10-20 H Urine WBC Negative Ur Epithelial Cells Rare Urine Crystals Moderate Amorphous Urine Bacteria Negative Urine Casts 0-2 Hyaline Urine Mucus Trace Ur Culture Indicated? No Urine Glucose Negative
[2022-04-05] MEDS: Ketorolac 30 MG/ML VIAL IVP (15:28)
[2022-04-05] MEDS: dexmedeTOMidine IN 0.9 % NACL 400 MCG/100 ML BTL 5.29 MCG IV ×2 (15:30→15:36)
[2022-04-05] MEDS: cefTRIAXone 2 GM/50 ML BAG IVPB (20:24)
[2022-04-05] MEDS: Ketamine 500 MG/10 ML VIAL 50 MG IVP (20:43)
[2022-04-06] VITALS (32 sets, daily range): BP systolic 88–150; BP diastolic 69–96; PULSE 71–106; RESP 8–53; TEMP 37.1–39.3; O2SAT 81–99
--- NOTE | 2022-04-06 | DI.RAD_ITS ---
Exam(s) XR PORTABLE CHEST AP EXAM: XR PORTABLE CHEST AP CLINICAL HISTORY: persistent fever. TECHNIQUE: 2D digital imaging was performed. COMPARISON: CR,XR XR PORTABLE CHEST AP POST LINE from 04/03/2022 FINDINGS: LUNGS: Clear. No pleural abnormality seen. HEART: Normal. MEDIASTINUM: Normal. OTHER FINDINGS: None. IMPRESSION: No acute pulmonary findings. DATA REPOSITORY: RADIATION DOSE DELIVERED: Total DLP
[2022-04-06] MEDS: Ketorolac 30 MG/ML VIAL IVP ×2 (01:46→17:37)
[2022-04-06] MEDS: dexmedeTOMidine IN 0.9 % NACL 400 MCG/100 ML BTL 10.58 MCG IV (01:46)
[2022-04-06 07:02] LABS: PHENOBARBITAL 18.3 ug/mL (15.0-40.0)
[2022-04-06 08:08] LABS: Abs Immature Grans 0.02 10^3/uL (0.0-0.06); Absolute Basophil Count 0.02 10^3/uL (0.0-0.2); Absolute Eosinophil Count 0.02 10^3/uL (0.0-0.7); Absolute Lymphocyte Count 0.61 10^3/uL (1.2-3.4); Absolute Monocyte Count 0.52 10^3/uL (0.1-0.8); Absolute Neutrophil Count 6.54 10^3/uL (1.2-6.7); Basophils % 0.3; Eosinophils % 0.3; HCT 35.5 % (40.0-50.0); HGB 11.7 g/dL (13.5-17.5); Immature Grans % 0.3; Lymphocytes % 7.9; MCV 91 fL (80-95); Monocytes % 6.7; Neutrophils % 84.5; RDW 13.2 % (11.8-14.1); RDW-SD 43.8 fL; WBC 7.73 10^3/uL (4.4-10.8)
[2022-04-06 08:20] LABS: ALT 13 U/L (16-63); AST 19 U/L (15-37); Albumin 3.4 g/dL (3.4-5.0); Alkaline Phosphatase 60 U/L (46-116); Anion Gap 7.9 mmol/L (3-11); BUN 21 mg/dL (7-18); Bilirubin, Direct 0.3 mg/dL (0.0-0.2); Bilirubin, Total 1.4 mg/dL (0.2-1.0); CO2 29.1 mmol/L (21.0-32.0); CREATININE 0.9 mg/dL (0.70-1.30); Chloride 107 mmol/L (98-107); Estimated GFR 114.93 (mL/min/1.73m2); Glucose 111 mg/dL (74-106); Magnesium 2.1 mg/dL (1.8-2.4); Potassium 3.6 mmol/L (3.5-5.1); Sodium 144 mmol/L (136-145); Total Protein 7.6 g/dL (6.4-8.2)
--- NOTE | 2022-04-06 08:34 | W.PM.PROGNOT ---
Date of Service Date of service: 04/06/22 Time of Service: 08:35 Assessment and Plan Assessment and plan (1) Respiratory failure with hypoxia: Status: Acute Assessment and plan: in setting of polysubstance overdose. Extubated, on RA today, doing well. Will attempt to encourage IS/a capella, but unfortunately the patient is not being very cooperative this morning. Will trial a diet. (2) Polysubstance abuse: Status: Acute Assessment and plan: UDS positive for THC, cocaine (reportedly, Fentanyl tabs and crushed fentanyl with paraphenalia also found). Fentanyl is not expected to show up on UDS. I think encephalopathy seen today could have to do with withdrawal, effects of drugs still on board, or agents that the patient received here, such as precedex. This has been d/c'ed. S/p phenobarb load, though EtOH use hx is unknown. We will continue zyprexa for clinical symptoms of hallucinations. I think it would be worth it to obtain a mental health consult once the patient is a little bit more clear to ensure there was no SI/attempt. (3) Aspiration pneumonia: Status: Acute Assessment and plan: Continue ceftriaxone. Repeat CXR. Encourage pulmonary toilet. Trial a clear liquid diet. Not requiring O2. Tolerating water without issues or evidence of choking. (4) Encephalopathy: Status: Acute Assessment and plan: EEG negative and mental status is improving. Etiology is still thought to be due to substance effect/abuse/withdrawal. CT head negative. Precedex d/c'ed. As tolerating PO water, will transition zyprexa to PO. S/p Phenobarbital load and on high dose thiamine therapy, though we are not sure if EtOH is a part of his clinical picture. At this time, also d/c'ed ketamine. Will trial managing behaviors/hallucinations primarily with antipsychotics. (5) Asthma: Assessment and plan: Continue PRN albuterol updrafts. No evidence of bronchospasm at this time (6) Demand ischemia: Status: Acute Assessment and plan: Agree that the bumped troponin was due to cocaine use and hypoxia in this setting; however, does also have a cardiomyopathy with LVEF of 35%, likely related to drug use, and I cannot rule out an arrhythmic event prior to admission. Continue cardiac monitoring. If tolerates PO today, will introduce goal directed therapy. (7) Hydronephrosis: Status: Chronic Assessment and plan: CT w/ dilated left renal pelvis and calices consistent with a mild chronic ureteral pelvic junction obstruction w/o stones/masses. Asymptomatic.? F/u as outpatient. (8) DVT prophylaxis: Status: Acute Assessment and plan: SC heparin (9) Discharge planning issues: Status: Acute Assessment and plan: Full code. Keep in ICU. I do not think that the patient can safely leave AMA or make that decision at this time. I advised the patient of this. I do think a mental health consult would be a good idea when mental status better. Total Critical Care Time 45 minutes. Subjective Subjective Interval history since last seen: Extubated yesterday. Precedex d/c'ed this am. Doesn't matter! I'm leaving! I want thanksgiving dinner! He has been hallucinating - talking to himself in the room, but he is not admitting to hearing/seeing things to me. Denies pain, endorses to nursing that his brain is not quite working right this am, no CP, SOB, dizziness, nausea. He has been having a nonproductive cough. Requiring 2 assist to get to the commode (+BM). T max 38.1 last night. Got toradol. Exam Narrative Exam Narrative: General: HEENT: Heart: Lungs: Abdomen: Extremities: Objective Last Vital Signs Temp 37.1 C 04/06/22 04:00 Pulse 74 04/06/22 05:01 Resp 35 H 04/06/22 05:01 BP 116/71 04/06/22 05:01 Pulse Ox 94 04/06/22 05:01 Laboratory Results - last 24 hr 04/05/22 04/06/22 04/06/22 12:40 05:32 07:55 WBC RBC Hgb Hct MCV MCH MCHC RDW Plt Count MPV Immature Gran % Neutrophils % Lymphocytes % Monocytes % Eosinophils % Basophils % Nucleated RBC % Absolute Neutrophils Absolute Lymphocytes Absolute Monocytes Absolute Eosinophils Absolute Basophils Sodium 144 Potassium 3.6 Chloride 107 Carbon Dioxide 29.1 Anion Gap 7.9 BUN 21 H Creatinine 0.9 Est GFR (CKD-EPI 2020) 114.93 Glucose 111 H Calcium 9.0 Magnesium 2.1 Total Bilirubin 1.4 H Conjugated Bilirubin 0.3 H AST 19 ALT 13 L Alkaline Phosphatase 60 Total Protein 7.6 Albumin 3.4 Urine Color Dark Yellow Urine Clarity Cloudy Urine pH 8.0 Ur Specific [place] 1.025 Urine Protein 30 H Urine Ketones Trace H Urine Blood Small H Urine Nitrite Negative Urine Bilirubin Negative Urine Urobilinogen 0.2 Ur Leukocyte Esterase Negative Urine RBC 10-20 H Urine WBC Negative Ur Epithelial Cells Rare Urine Crystals Moderate Amorphous Urine Bacteria Negative Urine Casts 0-2 Hyaline Urine Mucus Trace Ur Culture Indicated? No Urine Glucose Negative Phenobarbital 18.3 04/06/22 07:55 WBC 7.73 RBC 3.90 L Hgb 11.7 L Hct 35.5 L MCV 91 MCH 30.0 MCHC 33.0 RDW 13.2 Plt Count MPV Immature Gran % 0.3 Neutrophils % 84.5 Lymphocytes % 7.9 Monocytes % 6.7 Eosinophils % 0.3 Basophils % 0.3 Nucleated RBC % 0.0 Absolute Neutrophils 6.54 Absolute Lymphocytes 0.61 L Absolute Monocytes 0.52 Absolute Eosinophils 0.02 Absolute Basophils 0.02 Sodium Potassium Chloride Carbon Dioxide Anion Gap BUN Creatinine Est GFR (CKD-EPI 2020) Glucose Calcium Magnesium Total Bilirubin Conjugated Bilirubin AST ALT Alkaline Phosphatase Total Protein Albumin Urine Color Urine Clarity Urine pH Ur Specific [place] Urine Protein Urine Ketones Urine Blood Urine Nitrite Urine Bilirubin Urine Urobilinogen Ur Leukocyte Esterase Urine RBC Urine WBC Ur Epithelial Cells Urine Crystals Urine Bacteria Urine Casts Urine Mucus Ur Culture Indicated? Urine Glucose Phenobarbital Multi-Disciplinary Checklist Lines/Tubes CENTRAL LINE: no ARTERIAL LINE: no GRAF: no ENDOTRACHEAL TUBE: no ICU Maintenance GLUCOSE 140-180mg/dL: no, Reason/Intervention: not diabetic NUTRITION AT GOAL: no, Reason/Intervention: starting a diet this morning PRESSURE ULCER: no RESTRAINTS: no ANTIBIOTICS(if yes, consider Stewardship): Yes Social Issues FAMILY UPDATED: yes PT/OT: yes GOALS/DISPOSITION/SUPERVISOR CONDITIONING YARD: yes CODE STATUS: Full Prophylaxis DVT PROPHYLAXIS: yes GI PROPHYLAXIS: yes, Indication: d/c'ing as diet as getting initiated
[2022-04-06] MEDS: Heparin 5,000 UNITS/ML VIAL 5000 UNITS SC ×2 (08:58→14:40)
[2022-04-06] MEDS: Albuterol 2.5 MG/3 ML INH SOLN VIAL UPD (08:58)
[2022-04-06] MEDS: Multivitamin TAB 1 TAB PO (09:00)
[2022-04-06] MEDS: OLANZapine 5 MG TAB PO ×2 (09:00→20:30)
[2022-04-06] MEDS: Folic Acid 1 MG TAB PO (09:00)
[2022-04-06] MEDS: THIAMINE 500 MG in Normal Saline 100 ML 200 MG IVPB ×2 (10:19→17:37)
[2022-04-06] MEDS: OLANZapine 10 MG VIAL 5 MG UD (12:26)
[2022-04-06] MEDS: Water,Injection,Sterile 10 ML VIAL (12:27)
--- NOTE | 2022-04-06 13:13 | DI.VRAD_ITS ---
PROCEDURE INFORMATION: Exam: XR Chest Exam date and time: 04/06/2022 12:36 PM Age: 36 years old Clinical indication: Other: Persistent fever TECHNIQUE: Imaging protocol: Radiologic exam of the chest. Views: 1 view. COMPARISON: CR XR PORTABLE CHEST AP POST LINE 04/03/2022 11:38 PM FINDINGS: Lungs: Unremarkable. No consolidation. Pleural spaces: Unremarkable. No pleural effusion. No pneumothorax. Heart/Mediastinum: Unremarkable. No cardiomegaly. Bones/joints: Plate screw fixation of the right clavicle. Old healed fracture of the left clavicle. IMPRESSION: No acute findings Dictated and Authenticated by: Sana Pack MD. Ordering:ANGLE Yi MD
--- NOTE | 2022-04-06 13:54 | NUR.NOTE ---
Patient updated his Randa GUTIÉRREZ RN as Ramya. He also stated that Alma Tipton, his sister should make his medical decisions and be his next of kin Nursing Note:
[2022-04-06] MEDS: LORazepam 2 MG/ML VIAL 0.5 MG IVP (14:30)
[2022-04-06] MEDS: Normal Saline Flush 10 ML SYR IVP (14:30)
[2022-04-06 15:52] LABS: Lab Add On Test DONE
[2022-04-06 16:05] LABS: C-Reactive Protein 16.96 mg/dL (0.0-0.3)
[2022-04-06 16:22] LABS: Procalcitonin 0.1 ng/mL
[2022-04-06 16:43] LABS: Source Nasal/Nares
[2022-04-06 17:15] LABS: COVID-19 PCR Negative (Negative)
[2022-04-06] MEDS: cefTRIAXone 2 GM/50 ML BAG IVPB (20:30)
[2022-04-06] MEDS: Albuterol/Ipratropium 3 ML UPD VIAL UPD (21:00)
[2022-04-06] MEDS: HYDROmorphone 2 MG TAB PO (23:53)
[2022-04-06] MEDS: Lidocaine 5% Patch 1 PATCH TP (23:55)
[2022-04-07] VITALS (15 sets, daily range): BP systolic 138–150; BP diastolic 82–119; PULSE 84–95; RESP 18; TEMP 36.6–37.3; O2SAT 92–98
[2022-04-07] MEDS: Lidocaine 5% Patch 1 PATCH TP (00:21)
[2022-04-07] MEDS: THIAMINE 500 MG in Normal Saline 100 ML 200 MG IVPB ×2 (01:23→09:31)
[2022-04-07 05:36] LABS: Abs Immature Grans 0.03 10^3/uL (0.0-0.06); Absolute Basophil Count 0.02 10^3/uL (0.0-0.2); Absolute Eosinophil Count 0.01 10^3/uL (0.0-0.7); Absolute Lymphocyte Count 0.61 10^3/uL (1.2-3.4); Absolute Monocyte Count 0.58 10^3/uL (0.1-0.8); Absolute Neutrophil Count 6.46 10^3/uL (1.2-6.7); Basophils % 0.3; Eosinophils % 0.1; HCT 33.1 % (40.0-50.0); HGB 11.2 g/dL (13.5-17.5); Immature Grans % 0.4; Lymphocytes % 7.9; MCH 29.8 pg (27.0-33.0); MCHC 33.8 % (32.0-36.0); MCV 88 fL (80-95); MPV 10.2 fL (8.0-11.0); Monocytes % 7.5; Neutrophils % 83.8; Platelet Count 181 10^3/uL (130-400); RBC 3.76 10^6/uL (4.36-5.78); RDW 13.1 % (11.8-14.1); RDW-SD 42.6 fL; WBC 7.71 10^3/uL (4.4-10.8)
[2022-04-07 06:11] LABS: ALT 19 U/L (16-63); AST 22 U/L (15-37); Alkaline Phosphatase 53 U/L (46-116); Anion Gap 7.7 mmol/L (3-11); BUN 18 mg/dL (7-18); Bilirubin, Direct 0.2 mg/dL (0.0-0.2); Bilirubin, Total 0.5 mg/dL (0.2-1.0); CO2 27.3 mmol/L (21.0-32.0); CREATININE 0.8 mg/dL (0.70-1.30); Calcium 8.6 mg/dL (8.5-10.1); Chloride 106 mmol/L (98-107); Glucose 119 mg/dL (74-106); Magnesium 2.1 mg/dL (1.8-2.4); Potassium 3.1 mmol/L (3.5-5.1); Sodium 141 mmol/L (136-145); Total Protein 6.9 g/dL (6.4-8.2)
[2022-04-07 07:52] LABS: Lab Add On Test DONE
--- NOTE | 2022-04-07 08:19 | NUR.NOTE ---
Patient is presently sleeping and will be allowed to sleep. RN takes call from patient's sister and gives update. Sister will be in to visit her brother at approximately 14:00 today.Nursing Note:
--- NOTE | 2022-04-07 08:41 | CMPROGNOTE_ITS ---
- If Service Date Differs Date of service: 04/07/22 Time of Service: 08:41 Care Management Progress Note S/O: A: Scotty is a 36 year old male admitted to [facility] on 04/02/22 for obtunded state, overdose of unknown substance. P: Scotty is intubated and being closely monitored at ICU level of care. CM will meet with him once he can communicate to determine his needs. He will likely discharge home once he is medically cleared. He will follow up with his PCP and discharge plan of care. CM will continue to follow.
[2022-04-07] MEDS: Folic Acid 1 MG TAB PO (08:51)
[2022-04-07] MEDS: Potassium Chloride 20 MEQ TABCR PO ×2 (08:52→13:41)
[2022-04-07] MEDS: OLANZapine 5 MG TAB PO (08:52)
[2022-04-07] MEDS: Multivitamin TAB 1 TAB PO (08:52)
[2022-04-07] MEDS: Potassium Chloride 20 MEQ TABCR 40 MEQ PO (08:53)
--- NOTE | 2022-04-07 09:30 | NUR.NOTE ---
Patient given additional warm blankets.Nursing Note:
--- NOTE | 2022-04-07 11:15 | W.PM.PROGNOT ---
Date of Service Date of service: 04/07/22 Time of Service: 11:16 Assessment and Plan Assessment and plan (1) Respiratory failure with hypoxia: Status: Acute Assessment and plan: in setting of polysubstance overdose. extubated 04/05. Has been tolerating his diet. No requiring any supplemental oxygen. I think he can be dc to care of his sister today w/ a short course of oral Augmentin. (2) Polysubstance abuse: Status: Acute Assessment and plan: UDS positive for THC, cocaine (reportedly, Fentanyl tabs and crushed fentanyl with paraphenalia also found). Fentanyl is not expected to show up on UDS. Patient is adamant that he was not suicidal and he desires to live for his children. He plans to stay w/ his sister. He would like outpatient help w/ his drug addiction. He understands that he nearly from acute respiratory failure. I also explained to him that he has a cardiomyopathy and suffered heart damage from his overdose. he became tearful when I told him this. (3) Aspiration pneumonia: Status: Acute Assessment and plan: follow up CXR was negative for infiltrates yesterday. He is afebrile w/ normal WBC. He should only need short courase of Augmentin i.e. 5 days. He is coughing some puruelent sputum (4) Encephalopathy: Status: Resolved Assessment and plan: resolved. secondary to polypharmacy drug overdose and hypoxia. I do not feel he will need Zypreza as outpatient (5) Demand ischemia: Status: Acute Assessment and plan: probably d/t deman ischemia. I will add low dose losartan and Toprol XL, keep him on low dose aspirin 81 mg; arrange outpatient follow up w/ cardiology. (6) Hydronephrosis: Status: Chronic Assessment and plan: CT w/ dilated left renal pelvis and calices consistent with a mild chronic ureteral pelvic junction obstruction w/o stones/masses. Asymptomatic.? F/u as outpatient. needs urology outpatient follow up (7) DVT prophylaxis: Status: Acute Assessment and plan: SC heparin (8) Discharge planning issues: Status: Acute Subjective Subjective Interval history since last seen: Scotty is awake and oriented x 3. He now denies any suicidal attempt in taking the overdose of fentanyl and says he was simply trying to get high which he says that he does every day. He is now scared of dyding and says that he plans to get to get outpatient help w/ his drug addiction. He is going to live with his sister in [place], [place]. He says that she works in health care at [employer] in [place], [place]. Scotty has been tolerating solid foods. No nausea or vomiting. He is not dyspneic. He has slight cough productive of yellowish mucous. He is afebrile. Currently on Rocephin for aspiration. I will change him to Augmentin. He is desiring to be discharged today to the care of his sister. He says that he can not afford the hospital bills to remain in the hospital. At this point, he is medically stable although he needs follow up outpatient care in including cardiology referral for his cardiomyopathy and outpatient drug rehab. Exam Narrative Exam Narrative: Scotty is alert an doriented x 3 No acute respiratory distress, not using accessory respiratory muscles Left clavicle w/ prominent cheloid scar and deformity from old fracture and repair Lungs: clear anteriorly, some scattered posterior basilar exp. wheezes; no rhonchi Heart: regular w/ out murmur or rurb Abdomen: soft, nontender, nondistended Extremities: no edema Objective Last Vital Signs Temp 37.2 C 04/07/22 09:20 Pulse 93 H 04/07/22 09:20 Resp 18 04/07/22 09:20 BP 150/94 H 04/07/22 09:20 Pulse Ox 98 04/07/22 09:20 Laboratory Results - last 24 hr 04/06/22 04/06/22 04/06/22 07:55 07:55 16:00 WBC RBC Hgb Hct MCV MCH MCHC RDW Plt Count MPV Immature Gran % Neutrophils % Lymphocytes % Monocytes % Eosinophils % Basophils % Nucleated RBC % Absolute Neutrophils Absolute Lymphocytes Absolute Monocytes Absolute Eosinophils Absolute Basophils Sodium Potassium Chloride Carbon Dioxide Anion Gap BUN Creatinine Est GFR (CKD-EPI 2020) Glucose Calcium Magnesium Total Bilirubin Conjugated Bilirubin AST ALT Alkaline Phosphatase C-Reactive Protein 16.96 H Total Protein Albumin Procalcitonin 0.1 COVID-19 Source Nasal/Nares SARS-CoV-2 (PCR) Negative Influenza Type A (PCR) Cancelled Influenza Type B (PCR) Cancelled RSV (PCR) Cancelled Add-On Test Request 04/06/22 04/07/22 04/07/22 Unknown 05:18 05:18 WBC 7.71 RBC 3.76 L Hgb 11.2 L Hct 33.1 L MCV 88 MCH 29.8 MCHC 33.8 RDW 13.1 Plt Count 181 MPV 10.2 Immature Gran % 0.4 Neutrophils % 83.8 Lymphocytes % 7.9 Monocytes % 7.5 Eosinophils % 0.1 Basophils % 0.3 Nucleated RBC % 0.0 Absolute Neutrophils 6.46 Absolute Lymphocytes 0.61 L Absolute Monocytes 0.58 Absolute Eosinophils 0.01 Absolute Basophils 0.02 Sodium 141 Potassium 3.1 L Chloride 106 Carbon Dioxide 27.3 Anion Gap 7.7 BUN 18 Creatinine 0.8 Est GFR (CKD-EPI 2020) 119.10 Glucose 119 H Calcium 8.6 Magnesium 2.1 Total Bilirubin 0.5 Conjugated Bilirubin 0.2 AST 22 ALT 19 Alkaline Phosphatase 53 C-Reactive Protein Total Protein 6.9 Albumin 3.0 L Procalcitonin COVID-19 Source SARS-CoV-2 (PCR) Influenza Type A (PCR) Influenza Type B (PCR) RSV (PCR) Add-On Test Request DONE 04/07/22 05:18 WBC RBC Hgb Hct MCV MCH MCHC RDW Plt Count MPV Immature Gran % Neutrophils % Lymphocytes % Monocytes % Eosinophils % Basophils % Nucleated RBC % Absolute Neutrophils Absolute Lymphocytes Absolute Monocytes Absolute Eosinophils Absolute Basophils Sodium Potassium Chloride Carbon Dioxide Anion Gap BUN Creatinine Est GFR (CKD-EPI 2020) Glucose Calcium Magnesium Total Bilirubin Conjugated Bilirubin AST ALT Alkaline Phosphatase C-Reactive Protein Total Protein Albumin Procalcitonin COVID-19 Source SARS-CoV-2 (PCR) Influenza Type A (PCR) Influenza Type B (PCR) RSV (PCR) Add-On Test Request DONE
[2022-04-07] MEDS: Losartan 25 MG TAB 12.5 MG PO (11:53)
[2022-04-07] MEDS: Metoprolol CR 25 MG TABCR 12.5 MG PO (11:53)
[2022-04-07] MEDS: Amoxicillin 875/Clav. 125 TAB PO (11:53)
[2022-04-07] MEDS: Patch Removal 1 EACH TP (12:00)
[2022-04-07] MEDS: Ketorolac 30 MG/ML VIAL IVP (13:04)
--- NOTE | 2022-04-07 14:25 | NUR.NOTE ---
Awaiting arrival of patient's sister who will be taking him to her house. It is expected patient will be discharged today.Nursing Note:
[2022-04-07 14:34] LABS: Potassium 3.5 mmol/L (3.5-5.1)
[2022-04-07 14:37] LABS: Magnesium 2.3 mg/dL (1.8-2.4)
--- NOTE | 2022-04-07 14:39 | NUR.NOTE ---
Patient is visited by his father and sister.Nursing Note:
--- NOTE | 2022-04-07 15:53 | CMDISCH_ITS ---
- If Service Date Differs Date of service: 04/07/22 Time of Service: 15:53 LACE Index Scoring Tool - Questions: Length of Stay (in days): 4 - 6 Acuity (Admit via E.D.?): Yes E.D. Visits: 6 - Answers: Total Score: 11 Risk of Readmission: High Risk Care Management Discharge Reason for Hospitalization: Obtunded state, overdose of unknown substances Discharge Plan: Scotty will be discharged home to [facility] with his sister who will transport him. He will follow up with Cardiology and substance use supports in the community. Patient/Family Education Needs: Review discharge instructions, limitations, medications and plan to follow up with community providers. Discuss ask me three and goals of self care.
--- NOTE | 2022-04-07 15:55 | DSE_ITS ---
Date of service: 04/07/22 Time of Service: 15:55 DS: Diagnosis Discharge Diagnosis (1) Respiratory failure with hypoxia: Status: Resolved Asessment and Plan: Patient treated with supportive care including bronchodilators as well as mechanical ventilation. Patient was successfully extubated on 04/05/2022 and weaned to room air by 04/06/2022. Patient will continue 5-day course of Augmentin for treatment of aspiration pneumonia. (2) Polysubstance abuse: Status: Acute Asessment and Plan: Patient strongly advised to enter into an outpatient drug rehabilitation program. His sister said she would facilitate this through [facility] in [facility]. (3) Aspiration pneumonia: Status: Resolved Asessment and Plan: As above. (4) Encephalopathy: Status: Resolved Asessment and Plan: Patient was treated for encephalopathy secondary to hypoxia and drug overdose. He was temporarily placed on Zyprexa for short-term. Patient was also given loading dose of phenobarbital out of concern that he may be going through alcohol withdrawal. However patient showed no further signs of alcohol withdrawal after he was extubated and weaned off the sedative medications. (5) Demand ischemia: Status: Resolved Asessment and Plan: Patient had transient elevation of his troponin I levels suspicious for acute coronary ischemic event. This was felt to be triggered by his drug overdose and hypoxic respiratory failure. Echocardiogram showed reduced LVEF of 35%. Patient needs follow-up with cardiology for goal-directed treatment of cardiomyopathy and he should have an outpatient stress MPI to rule out residual ischemic heart disease. (6) Hydronephrosis: Status: Chronic Asessment and Plan: Patient has mild left hydronephrosis without evidence of calcific obstruction. Evidence of obstruction appears to be a chronic ureteropelvic junction obstruction without stones or mass. This should be followed with a urologist for consideration of a cystoscopy ureteroscopy. (7) Cardiomyopathy: Status: Acute Asessment and Plan: Possibly drug-induced. Needs further evaluation to rule out underlying ischemic heart disease including a stress MPI. Patient needs to see a law reporter for titration of his losartan and his Toprol as well as addition of further goal- directed therapy towards treatment of heart failure with reduced ejection fraction. Discharge Plan Disposition Patient Disposition: Home Condition: Improving Discharge Details Reason For Visit: Obtunded State, Overdose of Unknown Substance(s) Admit Date/Time: 04/02/22 11:58 Admit Provider: Nate Bowden Attending Provider: Nate Bowden Primary Care Provider: Tc Minaya Hospital Course Hospital Course: 36-year-old male with history of substance abuse is found in his car unresponsive. EMS first responders administered naloxone for total of 12 mg. He became more alert and pupils are from pinpoint to become more reactive. However his mental status remained altered. EMS administered Versed with a known he was having generalized muscle spasms. Drug paraphernalia was found intact with evidence of crushed fentanyl on his person. He was noted to be hypertensive and tachycardic on arrival and was intubated for airway protection. He required higher dose of propofol, Versed, fentanyl to maintain adequate sedation. Because of intermittent spastic movements of bilateral upper lower extremities seizure cannot be excluded was loaded with Keppra [address] of the head without contrast showed no acute findings. Did have evidence of some chronic sinusitis of his ethmoids and sphenoid sinuses. CT of his chest showed bilateral pulmonary consolidation possibly due to aspiration. He has a chronic mild left hydronephrosis without evidence of calcific obstruction. Follow-up chest x-ray after intubation showed questionable left lower lobe infiltrate versus atelectasis and satisfactory placement of his nasogastric tube and endotracheal tube. Patient was admitted to the intensive care unit where he continued to receive IV antibiotics including Rocephin. Work-up laboratory studies showed elevated troponin level we will treat. I will clozaril that peaked at 946 the admission level was 134 as last level was 675. EKG demonstrates sinus rhythm with no ischemic or injury pattern. This was a normal ECG. Nevertheless the elevated troponin warranted obtaining an echocardiogram which was performed on 04/03/2022. This showed borderline dilated left ventricle with normal left ventricular wall thickness. He has global hypokinesis with an estimate ejection fraction of 35% with possible apical wall motion abnormality. RV size and function was normal. There is no significant valvular heart disease. LVEF is 35%. The transient elevation of his troponin was felt to be due to demand ischemia however the echocardiogram is suggestive of a cardiomyopathy possibly brought on by his polypharmacy drug abuse. Patient was made aware of his cardiomyopathy and need for follow-up with law reporter. Same information was relayed to his sister who picked him up upon discharge. His sister is a healthcare worker at [facility] in [facility] and assured me that she will make arrangements for him to follow-up with a law reporter at [facility]. Patient was supported on mechanical ventilation until he was able to be successfully extubated on the morning of 04/05/2022. He was initially supported with high flow nasal cannula but quickly was weaned to room air. I assumed his care on 04/07/2022 patient was tolerating a regular diet not having any dyspnea not requiring any supplemental oxygen. Time of discharge his oxygen saturation was 97% he was afebrile with stable blood pressure and pulse. On the morning of discharge. Started initiation of goal-directed therapy for his cardiomyopathy with low-dose beta-leelee and losartan. Because patient was still coughing up some purulent looking sputum and because a CT scan had shown a left lower lobe infiltrate he was continued on 5 more days of antibiotics including Augmentin 875 mg twice a day. He was discharged on losartan 25 mg tablet half a tablet once a day along with Toprol-XL 25 mg half a tablet daily. While these doses are rather small doses because I did not have more than half a day of managing his case I do not want to overshoot and have problems with hypotension. Both the patient and his sister were informed that he will need titration of his goal-directed therapy this should be accomplished by a local law reporter. Patient did not have evidence of volume overload and therefore did not start diuretics. Patient was strongly advised to abstain from further narcotic abuse. His sister indicated that she will get him into a drug rehab program through [facility]. Case management did meet with the patient's sister offered referrals for a rehabilitation counselor. Home Meds and New Rx's Prescriptions: New amoxicillin-pot clavulanate 875-125 mg Tablet 1 tab PO BID 5 Days Qty: 10 0RF losartan 25 mg Tablet 12.5 mg PO DAILY Qty: 30 0RF metoprolol succinate 25 mg Tablet Extended Release 24 Hr 12.5 mg PO DAILY Qty: 30 0RF folic acid 1 mg Tablet 1 mg PO QAM Qty: 30 0RF thiamine mononitrate (vit B1) [Vitamin B-1 (mononitrate)] 100 mg Tablet 100 mg PO QAM Qty: 30 0RF albuterol sulfate 90 mcg/actuation aerosol powdr breath activated 2 inh inhalation QID PRNQty: 1 0RF Discharge Instructions Instructions: Metoprolol (By mouth), Amoxicillin/Clavulanate Potassium (By mouth), Losartan (By mouth), Dilated Cardiomyopathy (DC), Narcotic Use Disorder (DC) Additional Instructions: You were treated for an overdose of fentanyl which led to your needing to be intubated and put on mechanical ventilation due to respiratory failure. You were also found to have heart failure w/ a cardiomyopathy. An ultrasound of your heart showed reduced left ventricular function. You ejection fraction is 35% which is moderately impaired (normal is over 52%). You have been put on two medications for your heart including losartan and metoprolol XL. You were put on very low doses of each and the doses should be titrated upward under the direction of a law reporter. You should have follow up lab work next week to monitor your kidney function after starting losartan. As part of your workup a CT scan of your abdomen demonstrates chronically dilated left ureter but no evidence of tumor or stones. You should follow up w/ a urologist regarding this. You need to see a drug rehab counselor/addiction womens volleyball coach to help you deal with your addiction to fentanyl and opoid drugs in general. A five day course of an oral antibiotic, Amoxicillin/clavulanate has been prescribed for you due to an acute bronchitis probably precipiated by aspiration during your overdose. You can obtain outpatient cardiology and urology and drug rehab referrals thro [facility] in [place], [place] near to your sister's home where you plan to be staying during your immediated time after leaving the hospital. If you need help getting referrals here at [facility], you can call case managment and they can make referrals to specialists here at [facility] Activity:: Activity as Tolerated Equipment/Supplies:: No Equipment Needed Diet:: Normal Diet Discharge Orders Discharge Orders: Discharge Order (Routine); Ordered 04/07/22 Ordered By: Son Coyle Other Ambulatory Orders: Basic Metabolic Panel (Routine) Timeframe: 1 Week Facility: [facility] - Location: Laboratory Outpatient - [facility] Ordered By: Son Coyle Discharge Data Discharge Date/Time-TO BE ENTERED AT DEPARTURE: 04/07/22 16:29 DS: Summary Time Spent with Patient providing and/or coordinating discharge services: Greater than 30 minutes Status at Discharge Functional status at discharge: independent ambulation Overall status at discharge: patient is progressing back to baseline Mental Status: mental status grossly normal Speech and Movement: speech and movement normal Mood: congruent mood Affect: normal affect Exam Narrative Exam Narrative: Scotty is alert an doriented x 3 No acute respiratory distress, not using accessory respiratory muscles Left clavicle w/ prominent cheloid scar and deformity from old fracture and repair Lungs: clear anteriorly, some scattered posterior basilar exp. wheezes; no rhonchi Heart: regular w/ out murmur or rurb Abdomen: soft, nontender, nondistended Extremities: no edema Psych Mental Status: mental status grossly normal Speech and Movement: speech and movement normal Mood: congruent mood Affect: normal affect DS: Data Vitals/I&O Vitals and I&O: Vital Signs Temperature 36.6 C 04/07/22 15:38 Temperature Source Temporal Artery Scan 04/07/22 15:38 Pulse 84 04/07/22 15:45 Pulse 85 04/06/22 14:00 Respiratory Rate 18 04/07/22 14:18 Respiratory Effort 04/07/22 15:38 Respiratory Depth Normal 04/07/22 15:38 Respiratory Pattern Normal 04/07/22 15:38 Blood Pressure 138/82 04/07/22 15:45 Blood Pressure Mean 96 04/07/22 15:45 Blood Pressure Position Supine 04/07/22 15:38 Pulse Oximetry 97 04/07/22 15:45 Respiratory End-tidal CO2 37 04/05/22 08:01 Oxygen Delivery Method Room Air 04/07/22 15:38 Oxygen Flow Rate 0 04/07/22 15:38 Fraction of Inspired Oxygen (FIO2) 21 04/05/22 17:23 Pain Level 0 04/07/22 15:38 Comment 04/06/22 18:30 Intake & Output 04/06/22 04/07/22 04/07/22 23:59 11:59 23:59 Intake Total 1180 / 2323.518 260 / 760 500 / 760 Output Total 1325 / 1325 200 / 1100 900 / 1100 Balance -145 / 998.518 60 / -340 -400 / -340 Weight 102.2 kg Intake: IV 260 / 503.518 260 / 260 Oral 920 / 1820 500 / 500 Output: Urine 625 / 625 200 / 700 500 / 700 Stool 700 / 700 400 / 400 Other: Urine Color Light Alissa Yellow Dark Alissa Urine Appearance Clear Urine Odor Normal None Comment Urine and loose stool in bedside commode at this time. Incontinent of stool at this time. Pt voiding independently in urinal. Stool Size Large Moderate Moderate Stool Characteristics Liquid Soft Liquid Liquid Voiding Methods Urinal Data Completed and Pending Labs on day of discharge: Labs from last 24 hours 04/07/22 04/07/22 04/07/22 14:21 14:11 05:18 WBC RBC Hgb Hct MCV MCH MCHC RDW Plt Count MPV Immature Gran % Neutrophils % Lymphocytes % Monocytes % Eosinophils % Basophils % Nucleated RBC % Absolute Neutrophils Absolute Lymphocytes Absolute Monocytes Absolute Eosinophils Absolute Basophils Sodium Potassium 3.5 Chloride Carbon Dioxide Anion Gap BUN Creatinine Est GFR (CKD-EPI 2020) Glucose Calcium Magnesium 2.3 Total Bilirubin Conjugated Bilirubin AST ALT Alkaline Phosphatase C-Reactive Protein Total Protein Albumin Procalcitonin COVID-19 Source SARS-CoV-2 (PCR) Influenza Type A (PCR) Influenza Type B (PCR) RSV (PCR) Add-On Test Request DONE 04/07/22 04/07/22 04/06/22 05:18 05:18 16:00 WBC 7.71 RBC 3.76 L Hgb 11.2 L Hct 33.1 L MCV 88 MCH 29.8 MCHC 33.8 RDW 13.1 Plt Count 181 MPV 10.2 Immature Gran % 0.4 Neutrophils % 83.8 Lymphocytes % 7.9 Monocytes % 7.5 Eosinophils % 0.1 Basophils % 0.3 Nucleated RBC % 0.0 Absolute Neutrophils 6.46 Absolute Lymphocytes 0.61 L Absolute Monocytes 0.58 Absolute Eosinophils 0.01 Absolute Basophils 0.02 Sodium 141 Potassium 3.1 L Chloride 106 Carbon Dioxide 27.3 Anion Gap 7.7 BUN 18 Creatinine 0.8 Est GFR (CKD-EPI 2020) 119.10 Glucose 119 H Calcium 8.6 Magnesium 2.1 Total Bilirubin 0.5 Conjugated Bilirubin 0.2 AST 22 ALT 19 Alkaline Phosphatase 53 C-Reactive Protein Total Protein 6.9 Albumin 3.0 L Procalcitonin COVID-19 Source Nasal/Nares SARS-CoV-2 (PCR) Negative Influenza Type A (PCR) Cancelled Influenza Type B (PCR) Cancelled RSV (PCR) Cancelled Add-On Test Request 04/06/22 04/06/22 07:55 07:55 WBC RBC Hgb Hct MCV MCH MCHC RDW Plt Count MPV Immature Gran % Neutrophils % Lymphocytes % Monocytes % Eosinophils % Basophils % Nucleated RBC % Absolute Neutrophils Absolute Lymphocytes Absolute Monocytes Absolute Eosinophils Absolute Basophils Sodium Potassium Chloride Carbon Dioxide Anion Gap BUN Creatinine Est GFR (CKD-EPI 2020) Glucose Calcium Magnesium Total Bilirubin Conjugated Bilirubin AST ALT Alkaline Phosphatase C-Reactive Protein 16.96 H Total Protein Albumin Procalcitonin 0.1 COVID-19 Source SARS-CoV-2 (PCR) Influenza Type A (PCR) Influenza Type B (PCR) RSV (PCR) Add-On Test Request Preliminary micro results at discharge 04/05/22 13:40 Blood Culture - Preliminary Blood NO GROWTH 48 HOURS 04/05/22 13:30 Blood Culture - Preliminary Blood NO GROWTH 48 HOURS 04/03/22 11:00 Blood Culture - Preliminary Blood NO GROWTH 96 HOURS 04/03/22 09:23 Blood Culture - Preliminary Blood NO GROWTH 96 HOURS PFS All Active Problems (Updated 04/08/22 @ 09:09 by Son Coyle MD) Cardiomyopathy (Acute) Hypokalemia (Acute) Hydronephrosis (Chronic) Polysubstance abuse (Acute) Elevated troponin (Acute) No-show for appointment (Acute) Closed right clavicular fracture (Acute 01/18/22) Thrombosed external hemorrhoid (Acute) Opioid abuse (Acute) Obesity, Class II, BMI 35-39.9 (Acute) Internal hemorrhoid (Acute) Medical History Asthma Surgical History No pertinent past surgical history Social History Smoking/Tobacco Use Status: Current every day Smoking risk assessment performed?: Yes Current gender identity: male
--- NOTE | 2022-04-10 11:20 | IN_ITS ---
Date of service: 04/07/22 Time of Service: 11:20 PT Notes Visit Reasons: Obtunded State, Overdose of Unknown Substance(s) Physical Therapy Inpatient Initial Evaluation Date: 04/07/2022 Referring Doctor: Kassidy Teixeira MD PT Orders: PT CONSULT: Limted ability Precautions: Fall. Standard. Activity as tolerated. Patient Profile/Admitting Diagnosis: Scotty is a 36-year-old male patient who presented to the ED on 04/02/2022 via EMS as he was found unresponsive inside his car. Drew is diagnosed with polysibstance abuse, OD with unknown substance, altered mental status, asthma, and aspiration pneumonia. He was referred to PT for discharge recomm endations to home. PMHX: All Active Problems? Aspiration pneumonitis (Acute) Polysubstance abuse (Acute) Overdose (Acute) Altered mental status (Acute) Elevated troponin (Acute) No-show for appointment (Acute) Closed right clavicular fracture (Acute 01/18/22) Thrombosed external hemorrhoid (Acute) Opioid abuse (Acute) Obesity, Class II, BMI 35-39.9 (Acute) Internal hemorrhoid (Acute) Medical History? Asthma Surgical History? No pertinent past surgical history Social History/Home Situation: Will be staying with his sister in [place] once discharged from this facility. Equipment Owned/DME: None Subjective: Eager to go home to sister's house after discharge from the hospital today. Objective: General Observation: Supine in chair. Middle third of the clavicle protruded under skin from previous injury. Has been observed walking with Nurse Heck on [facility] hallway, no assisitive device used. Telemetry monitoring in place. Mental Status: Alert and oriented as to person, place, time, and purpose. Able to pay attention, focus, and respond appropriately. Pain: Denies Vital Signs: WNL ROM: Right Upper Extremity: Shoulder Flexion lacking the last 25% of AROM due to pain from clavicular deformity. Shoulder abduction lacking the last 25% of AROM due to pain from clavicular deformity. Elbow flexion WFL. Wrist flexion WFL. Functional opening and closing of hand WFL. Left Upper Extremity: Shoulder Flexion WFL. Shoulder abduction WFL. Elbow flexion WFL. Wrist flexion WFL. Functional opening and closing of hand WFL. Right Lower Extremity: Hip flexion WFL. Hip abduction WFL. Knee flexion WFL. Ankle dorsiflexion WFL. Ankle plantarflexion WFL. Left Lower Extremity: Hip flexion WFL. Hip abduction WFL. Knee flexion WFL. Ankle dorsiflexion WFL. Ankle plantarflexion WFL. Strength: Right Upper Extremity: Shoulder flexors 3-/5. Shoulder abductors 3-/5. Elbow flexors 4/5. Elbow extensors 4/5. Medical Sales Consultant strong. Left Upper Extremity: Shoulder flexors 5/5. Shoulder abductors 5/5. Elbow flexors 5/5. Elbow extensors 5/5. Medical Sales Consultant strong. Right Lower Extremity: Hip flexors 5/5. Hip abductors 5/5. Knee flexors 5/5. Knee extensors 5/5. Ankle dorsiflexors 5/5. Ankle plantarflexors 5/5. Left Lower Extremity: Hip flexors 5/5. Hip abductors 5/5. Knee flexors 5/5. Knee extensors 5/5. Ankle dorsiflexors 5/5. Ankle plantarflexors 5/5. Bed Mobility/Transfers: Rolling independent Supine to sit independent Sit to supine independent Sit to stand independent Stand to sit independent Bed to reclining chair independent Reclining chair to bed independent Gait: Instructed patient with level surface ambulation of 700 feet requiring supervision assist. Mild path deviation that subsided with increased distance. Balance: Static Sitting: Normal Dynamic Sitting: Normal Static Standing: Good Dynamic Standing: Good Special Tests: Mobility Limitations Standardized Measure [facility] AM-PAC 6 clicks Basic Mobility Inpatient Short Form: Raw Score: 24 CMS Score: 0% deficit Informed Consent/Education: Patient was instructed in purpose of PT consult and plan of care. Agreeable to proceed with established PT POC to achieve personal goals. Assessment: Minimal path deviation but no LOB. Walking pattern improved towards the latter of the walking and patient was made indepedndent in the hallway without any AD. Patient may go home to sister's house when medically cleared. Patient is assessed [place] a 07159 low complexity based on the following: History: 36-year-old male with past medical history as indicated above Examination: Demonstrable impairment in strength, balance, and mobility level with underlying impairments and functional limitations as exhibited above as well as deficit score of 0% utilizing the [facility] Mobility Inpatient Short Form Presentation: Stable Decision Makin low complexity Goals: N/A. PT evaluation only. Plan of Care/Treatment Plan: N/A. PT evaluation only. DISCHARGE RECOMMENDATIONS: [X] Home with no services . Home when medically cleared by hospitalist. No equipment needs at this time. [] Home with services [specify] [] Home with outpatient PT [] [] SNF for continued rehabilitation [] [] Penitentiary Care [] [] SNF versus LTC based on ability to participate and progress [] TREATMENT CODE/TIME: 98629 x 22 minutes beginning at 10:24 and 11:20 AM. Thank you for the opportunity to participate in the care of this patient. Annette Alcala PT, DPT, CLT [facility] [place], [place]
== END 2022-04-07 16:29 | disposition home or self-care (01) | DRG 917 ==
LOC: ER 12:42 → ICU 13:02
PROVIDERS: Internal Medicine; Student in an Organized Health Care Education/Training Program; Admitting Provider Family Medicine; Emergency Provider Student in an Organized Health Care Education/Training Program; PCP Physician Assistant; Visit Provider Family Medicine
DX: T50.991A Poisoning by other drugs, medicaments and biological substances, accidental (unintentional), initial encounter (principal); J69.0 Pneumonitis due to inhalation of food and vomit; J96.01 Acute respiratory failure with hypoxia; I24.8 Other forms of acute ischemic heart disease; N13.30 Unspecified hydronephrosis; I42.9 Cardiomyopathy, unspecified; R44.2 Other hallucinations; R41.82 Altered mental status, unspecified; J45.909 Unspecified asthma, uncomplicated; R94.31 Abnormal electrocardiogram [ECG] [EKG]; F11.10 Opioid abuse, uncomplicated; E66.9 Obesity, unspecified; Z68.30 Body mass index [BMI] 30.0-30.9, adult; F17.210 Nicotine dependence, cigarettes, uncomplicated; Z78.1 Physical restraint status; F14.90 Cocaine use, unspecified, uncomplicated; J32.2 Chronic ethmoidal sinusitis; J32.3 Chronic sphenoidal sinusitis
CPT/HCPCS: 31500; 36410; 36415; 71045; 74177; 80048; 80053; 80076; 80307; 82550; 82805; 84145; 85027; 87040; 87635; 87637; 93005; 96365; 96366; 96368; 97161; 97530; 99291; 70450; 71260; 74178; 80184; 80320; 80329; 81003; 81015; 83735; 84132; 84484; 85025; 86140; 87070; 87086; 87205; 93010; 93306; 94002; 94003; 94640; 95816; 99223; 99232; 99233; 99239; J0131; J1644; J1885; J1953; J2060; J2560; J3010; J3490; J7613; J7620

== ENCOUNTER 2022-04-12 09:23 | Emergency (ER) | payer MEDICAID, SELFPAY ==
--- NOTE | 2022-04-12 09:15 | RT.EKG_ITS ---
APPROVED REPORT Exam: Resting ECG Reason for Exam: [id number] Patient Location: E HR:96 bpm ECG Measurements Heart Rate 96 AXIS OR 144 P 45 QRSd 87 QRS -6 QT 364 T 13 QTc 459 Conclusion Sinus rhythm...normal P axis, V-rate 60- 99
[2022-04-12 09:38] VITALS: BP 120/79; PULSE 103; RESP 18; TEMP 37; O2SAT 99
--- NOTE | 2022-04-12 12:00 | DI.RAD_ITS ---
Exam(s) XR CHEST 2V PA LATERAL EXAM: XR CHEST 2V PA LATERAL CLINICAL HISTORY: cough, prev LLL PNA. TECHNIQUE: 2D digital imaging was performed. COMPARISON: CR,XR XR PORTABLE CHEST AP from 04/06/2022 FINDINGS: 2 views: Right clavicle fusion plate is again noted Heart size is normal. The mediastinum is not widened. Lungs are clear. No infiltrates nor pleural effusions. IMPRESSION: No acute pulmonary findings. DATA REPOSITORY: RADIATION DOSE DELIVERED:
--- NOTE | 2022-04-12 12:06 | ED.GENADUL_ITS ---
Discharge Plan Disposition Patient Disposition: Home Condition: Improving Discharge Details Clinical Impression: Pneumonia Primary Care Provider: Tc Minaya ED Provider: Madhav Douglas Home Meds and New Rx's Prescriptions: New cefdinir 300 mg capsule 300 mg PO Q12H 10 Days Qty: 20 0RF Continued losartan 25 mg Tablet 12.5 mg PO DAILY Qty: 30 0RF metoprolol succinate 25 mg Tablet Extended Release 24 Hr 12.5 mg PO DAILY Qty: 30 0RF folic acid 1 mg Tablet 1 mg PO QAM Qty: 30 0RF thiamine mononitrate (vit B1) [Vitamin B-1 (mononitrate)] 100 mg Tablet 100 mg PO QAM Qty: 30 0RF albuterol sulfate 90 mcg/actuation aerosol powdr breath activated 2 inh inhalation QID PRNQty: 1 0RF Discharge Instructions Instructions: Pneumonia (ED) Additional Instructions: Your work-up today included blood work, chest x-ray, and CT scan of the abdomen and pelvis. Your liver enzymes were slightly elevated and should be rechecked in the next 4 to 6 weeks time. Your left kidney showed mild dilation for which we have placed a referral for you in urology clinic. Please stop the previously prescribed antibiotics and begin the cefdinir as prescribed. You were given a loading dose of ceftriaxone IV in the emergency department today. Home to rest today.. Discharge Data Discharge Date/Time-TO BE ENTERED AT DEPARTURE: 04/12/22 15:45 Medical Decision Making 36-year-old male presents from home. He was recently admitted for overdose from fentanyl that was complicated by a left lower lobe pneumonia for which she was discharged on Augmentin. He presents today after leaving the hospital AGAINST MEDICAL ADVICE.. He states he has ongoing cough with production of blood-tinged sputum. He also notes some right-sided lower chest disc comfort with coughing. Patient arrives to the ER alert, interactive, noted to have pulse approximately 100 but oxygenating normally. His exam reveals left lower lobe rhonchi. Different diagnosis would include pneumonia, must exclude PE. WBC is 10, hematocrit 45, platelets 344. Note of left shift. Chemistries show normal electrolytes, slightly elevated AST 46, ALT 199, total bili 0.6. Referred for chest x-ray which shows the lungs are clear and no persistent infiltrate. Urinalysis recent diagnosis of pneumonia, some poor compliance as an outpatient, he was given a dose of ceftriaxone. Following this and fluids the patient is improving. Given his complaint of right lower chest discomfort, mildly abnormal transaminitis, and consideration of PE the patient has been referred for CT imaging of chest, abdomen and pelvis. This reveals bilateral pneumonia. There is evidence of left-sided hydronephrosis but no clear obstruction. Patient has no complaints of discomfort. We will place him on a course of oral cephalosporin. He is to follow-up with primary care for recheck. He is stable and appropriate to discharge from the emergency department at this time. Sign Out No HPI General Mode of arrival: ambulatory . Date/Time Provider Initiated Documentation: 04/12/22 09:39 . Limitations to Documentation: no limitations . Information obtained by: patient . History of Present Illness 36 year old M presents to the emergency department with the chief complaint of Persistent cough with production of blood-tinged sputum, described as moderate, and is localized to the chest. Patient reports no radiation. Patient started experiencing this day(s) and it has been intermittent. No relieving factors improve symptom(s), No exacerbating factors reported . Patient notes cough and malaise; denies fever/chills. Patient did receive the following treatments prior to arrival, other (Taking Augmentin) Related Data Home Medications Medication Instructions Recorded Confirmed albuterol sulfate 90 mcg/actuation 2 inh inhalation QID PRN #1 ea 04/07/22 04/12/22 breath activated powder inhaler folic acid 1 mg tablet 1 mg PO QAM #30 tabs 04/07/22 04/12/22 losartan 25 mg tablet 12.5 mg PO DAILY #30 tabs 04/07/22 04/12/22 metoprolol succinate 25 mg 12.5 mg PO DAILY #30 tabs 04/07/22 04/12/22 tablet,extended release 24 hr thiamine mononitrate (vit B1) 100 100 mg PO QAM #30 tabs 04/07/22 04/12/22 mg tablet (Vitamin B-1 (mononitrate)) cefdinir 300 mg capsule 300 mg PO Q12H 10 days #20 caps 04/12/22 Previous Rx's Medication Instructions Recorded albuterol sulfate 90 mcg/actuation 2 inh inhalation QID PRN #1 ea 04/07/22 breath activated powder inhaler folic acid 1 mg tablet 1 mg PO QAM #30 tabs 04/07/22 losartan 25 mg tablet 12.5 mg PO DAILY #30 tabs 04/07/22 metoprolol succinate 25 mg 12.5 mg PO DAILY #30 tabs 04/07/22 tablet,extended release 24 hr thiamine mononitrate (vit B1) 100 100 mg PO QAM #30 tabs 04/07/22 mg tablet (Vitamin B-1 (mononitrate)) cefdinir 300 mg capsule 300 mg PO Q12H 10 days #20 caps 04/12/22 Allergies Allergy/AdvReac Type Severity Reaction Status Date / Time methadone Allergy Severe facial Verified 04/12/22 09:44 swelling General Stated Complaint: RespSymp DAVID: 3 Review of Systems Narrative: No significant shortness of breath. States he is not using opiates. Otherwise well. 7 systems were reviewed see HPI PFSH All Active Problems (Updated 04/12/22 @ 15:33 by Madhav Douglas MD) Pneumonia (Acute) Cardiomyopathy (Acute) Hypokalemia (Acute) Hydronephrosis (Chronic) Polysubstance abuse (Acute) Elevated troponin (Acute) No-show for appointment (Acute) Closed right clavicular fracture (Acute 01/18/22) Thrombosed external hemorrhoid (Acute) Opioid abuse (Acute) Obesity, Class II, BMI 35-39.9 (Acute) Internal hemorrhoid (Acute) Medical History Asthma Surgical History No pertinent past surgical history Social History Smoking/Tobacco Use Status: Current every day Tobacco Type: cigarettes Smoking risk assessment performed?: Yes Alcohol Intake: never Drug use: Current Sobriety Substance use type: opiates and painkillers Current gender identity: male Do you feel safe at home: Yes (n/a) Do you feel safe in your relationship?: Yes Exam Narrative Exam Narrative: GEN: awake, alert, oriented 3. Pleasant, well groomed, interactive. HEAD: Normocephalic, atraumatic ENT: Mucous membranes moist, oropharynx unremarkable, External ear exam unremarkable EYES: PERRL, EOMI NECK: Full ROM, no MISBAH, no menigismus CHEST/RESP: Nontender, left lower lobe rhonchi CARDIOVASCULAR: RRR, no murmur, rub devonte. 2+ Rad pulse bilateral ABDOMEN: Soft, nontender, no mass. +Bowel sounds EXT: Full ROM, no edema, no rash Neuro: Grossly normal neurologic exam, conversant, interactive. Psych: Speech fluent, thoughts congruent, affect normal Course Vital Signs Vital signs: Vital Signs Temperature 37.0 C 04/12/22 09:38 Pulse 103 H 04/12/22 09:38 Respiratory Rate 18 04/12/22 09:38 Blood Pressure 120/79 04/12/22 09:38 Pulse Oximetry 99 04/12/22 09:38 Temperature 37.0 C 04/12/22 09:38 Temperature Source Temporal Artery Scan 04/12/22 09:38 Pulse 103 H 04/12/22 09:38 Respiratory Rate 18 04/12/22 09:38 Respiratory Effort Non-Labored 04/12/22 09:45 Respiratory Depth Normal 04/12/22 09:45 Blood Pressure 120/79 04/12/22 09:38 Blood Pressure Position Sitting 04/12/22 09:38 Pulse Oximetry 99 04/12/22 09:38 Oxygen Delivery Method Room Air 04/12/22 09:38 Oxygen Flow Rate 0 04/12/22 09:38 Pain Level 5 04/12/22 09:38
[2022-04-12] MEDS: Normal Saline 1,000 ML 1000 ML IV (12:20)
[2022-04-12 12:31] LABS: Abs Immature Grans 0.05 10^3/uL (0.0-0.06); Absolute Basophil Count 0.06 10^3/uL (0.0-0.2); Absolute Eosinophil Count 0.12 10^3/uL (0.0-0.7); Absolute Lymphocyte Count 1.07 10^3/uL (1.2-3.4); Absolute Monocyte Count 0.64 10^3/uL (0.1-0.8); Basophils % 0.6; Eosinophils % 1.2; HCT 45.9 % (40.0-50.0); HGB 15.2 g/dL (13.5-17.5); Immature Grans % 0.5; Lymphocytes % 10.7; MCH 29.3 pg (27.0-33.0); MCHC 33.1 % (32.0-36.0); MCV 89 fL (80-95); MPV 10.2 fL (8.0-11.0); Monocytes % 6.4; Neutrophils % 80.6; Platelet Count 344 10^3/uL (130-400); RBC 5.18 10^6/uL (4.36-5.78); RDW 12.8 % (11.8-14.1); RDW-SD 41.5 fL; WBC 10.04 10^3/uL (4.4-10.8)
[2022-04-12] MEDS: cefTRIAXone 1 GM/50 ML BAG IVPB (12:41)
[2022-04-12 12:44] LABS: ALT 199 U/L (16-63); AST 46 U/L (15-37); Albumin 3.9 g/dL (3.4-5.0); Alkaline Phosphatase 93 U/L (46-116); Anion Gap 6.9 mmol/L (3-11); BUN 15 mg/dL (7-18); Bilirubin, Total 0.6 mg/dL (0.2-1.0); CO2 30.1 mmol/L (21.0-32.0); CREATININE 0.9 mg/dL (0.70-1.30); Calcium 9.6 mg/dL (8.5-10.1); Chloride 99 mmol/L (98-107); Estimated GFR 114.93 (mL/min/1.73m2); Glucose 87 mg/dL (74-106); Potassium 3.7 mmol/L (3.5-5.1); Sodium 136 mmol/L (136-145); Total Protein 8.8 g/dL (6.4-8.2)
--- NOTE | 2022-04-12 14:00 | DI.CT_ITS ---
Exam(s) CT CHEST PE ABD PELVIS W EXAM: CT CHEST PE ABD PELVIS W CLINICAL HISTORY: COugh, hemoptysis, elevateed LFTs. R pain. TECHNIQUE: Imaging Protocol: Axial CT angiography was performed with multi-slice acquisition and m ulti-planar and/or 3D reconstructions. CONTRAST MATERIAL: Intravenous: Omnipaque 350 Contrast volume:100 ml Oral: None COMPARISON: CT CT ABDOMEN PELVIS WO/W from 04/03/2022 CR,XR XR PORTABLE CHEST AP from 04/06/2022 FINDINGS: CHEST: PULMONARY ARTERIES: There are no intra-arterial filling defects to suggest the presence of acute pulm onary emboli. LUNGS: There has been some improvement in the right lung base infiltrate in the posterior basal segme nt but there is now increasing infiltrate in the posterior basal segment more medially at the junctio n with the medial basal segment of the right lower lobe. No pleural effusion..In the left lung there is pleural-based infiltrate now evident at the junction of the posterior basal and lateral basal seg ments, measuring 4 cm length along the pleural surface by 2 cm and not associated with pleural effusi on nor rib destruction. There are no focal findings higher up in the lung laurent. MEDIASTINUM: No hilar adenopathy. Slightly enlarged subcarinal lymph nodes are noted. No adenopathy evident in the anterior mediastinal fat. No supraclavicular nor axillary adenopathy. Visualized th yroid unremarkable. CARDIAC: Heart size is normal. There is no pericardial effusion. There is no significant shift of t he interventricular septum.Caliber of the thoracic aorta is within normal limits. No evidence of dis section. OSSEOUS: No significant osseous lesions.. ABDOMEN: There is no ascites. LIVER: There are no focal hepatic lesions nor dilatation of intrahepatic ducts. GALLBLADDER/BILIARY: No obvious gallbladder pathology. CBD is not dilated. PANCREAS: No evidence of pancreatic mass nor dilatation of the pancreatic duct. SPLEEN: Spleen is not enlarged. There are no intrasplenic lesions. Splenic and portal veins are gross nt. ADRENALS: There are no significant adrenal masses. KIDNEYS:Right kidney unremarkable. There is mild hydronephrosis of the left kidney although the left ureter below the UPJ level is not dilated. No focal finding in the urinary bladder. No renal calcu li. No solid renal masses.. ABDOMINAL AORTA: Abdominal aorta is not enlarged. LYMPH NODES: There is no retroperitoneal or para-aortic adenopathy. ABDOMINAL WALL/GI: No evidence of significant anterior abdominal wall hernia. No bowel obstruction. PELVIS: LYMPH NODES: There is no intrapelvic nor inguinal adenopathy. GI: No evidence of appendicitis.No evidence of sigmoid diverticulitis. URINARY BLADDER: No calculi nor masses evident REPRODUCTIVE: Prostate not enlarged. Seminal vesicles unremarkable. OSSEOUS: No significant osseous lesions. IMPRESSION: 1. No evidence of acute pulmonary emboli. However, there is pleural base 4 cm infiltrate in the left lower lobe posterior-lateral basal segment now evident as well as increasing infiltrate at the junct ion of the posterior and medial basal segments of the right lower lobe, both not associated with pleu ral effusions nor findings higher up in either lung field. 2. There is mild-moderate unilateral left-sided hydronephrosis. This appears to be related to the UP J junction as the ureter is not dilated below this level. There is no calculus nor obvious mass comp ressing upon the upper ureter at this level. Difficult to compared to the prior study as the prior s tudy of 04/03/2022 was not a contrast infused study. Discussed with ER physician RADIATION DOSE DELIVERED: 2,040.03mGy.cm Total DLP DATA REPOSITORY: All CT scans at this facility are submitted to the National Radiology Data Registry (NRDR) Dose Index Registry (DIR) with the [employer] (ACR). RADIATION OPTIMIZATION: All CT scans at this facility use at least one of these dose optimization te chniques: automated exposure control; mA and/or kV adjustment per patient size (includes targeted exa ms where dose is matched to clinical indication); or iterative reconstruction.
[2022-04-12] MEDS: Omnipaque 350 MG/ML 100 ML BTL IJ (14:52)
[2022-04-12] MEDS: Normal Saline - Diluent 50 ML VIAL IJ (14:52)
[2022-04-12] MEDS: Normal Saline Flush 10 ML SYR IVP (14:53)
--- NOTE | 2022-04-12 15:33 | NUR.NOTE ---
Nursing Note: PT info faxed to Urology for follow up next week for Left sided hydronephrosis. Sherry, ED
== END 2022-04-12 15:45 | disposition home or self-care (01) ==
PROVIDERS: Emergency Provider Emergency Medicine; PCP Physician Assistant
DX: J18.9 Pneumonia, unspecified organism (principal); R74.01 Elevation of levels of liver transaminase levels; Z53.29 Procedure and treatment not carried out because of patient's decision for other reasons
CPT/HCPCS: 71275; 74177; 80053; 93005; 96361; 96365; 99285; 71046; 85025; 93010; 99284; J0696; J3490

== ENCOUNTER 2022-05-04 15:59 | Emergency (ER) | payer MEDICAID, SELFPAY ==
[2022-05-04 16:15] VITALS: BP 125/95; PULSE 106; RESP 20; TEMP 37.1; O2SAT 99
--- NOTE | 2022-05-04 18:13 | ED.GENADUL_ITS ---
Discharge Plan Disposition Patient Disposition: Home Condition: Stable Discharge Details Clinical Impression: Encounter for drug rehabilitation, Substance abuse Primary Care Provider: Tc Minaya ED Provider: Troy Henry Home Meds and New Rx's Prescriptions: Continued losartan 25 mg Tablet 12.5 mg PO DAILY Qty: 30 0RF metoprolol succinate 25 mg Tablet Extended Release 24 Hr 12.5 mg PO DAILY Qty: 30 0RF albuterol sulfate 90 mcg/actuation aerosol powdr breath activated 2 inh inhalation QID PRNQty: 1 0RF Discharge Instructions Additional Instructions: Please follow-up with [facility] or recovery services as previously discussed. If you experience any withdrawal symptoms or overdose please return to the emergency department immediately for reassessment and further discussion of plan. Referrals: [facility] [Outside] Discharge Data Discharge Date/Time-TO BE ENTERED AT DEPARTURE: 05/04/22 18:26 Medical Decision Making Patient presenting to the emergency department for chief complaint of seeking drug rehab services. Patient recently overdosed and now is wanting to enter drug recovery. He discussed entering a program today and unfortunately he will not be able to be started on any recovery meds until next week. Patient denies any withdrawal type symptoms. Does state chronic wound on right hip but denies any worsening of symptoms. Physical exam is unremarkable. Chronic appearing wound to right hip but otherwise does not show any obvious surrounding cellulitis. Encouraged patient to continue acute wound management and to otherwise follow-up with [facility] or drug rehab services. We will give patient a recovery to go bag with Narcan supply otherwise patient to continue seeking outpatient services. Given that patient has not been started on any services we will not be starting any medications in the emergency department given that he has no established follow-up until next week. After discussion of diagnosis and plan of care patient has no further needs, questions, or concerns and states clear understanding to return to the emergency department for any worsening symptoms. This documentation was generated using [email or web address] dictation system, please disregard any oddities of phrase or misspellings. HPI General Mode of arrival: ambulatory . Date/Time Provider Initiated Documentation: 05/04/22 16:20 . Limitations to Documentation: no limitations . Information obtained by: patient . History of Present Illness 36 year old M presents to the emergency department with the chief complaint of Wants to start drug rehab program, Patient notes no other symptoms.. Patient did receive the following treatments prior to arrival, none Related Data Home Medications Medication Instructions Recorded Confirmed albuterol sulfate 90 mcg/actuation 2 inh inhalation QID PRN #1 ea 04/07/22 05/04/22 breath activated powder inhaler losartan 25 mg tablet 12.5 mg PO DAILY #30 tabs 04/07/22 05/04/22 metoprolol succinate 25 mg 12.5 mg PO DAILY #30 tabs 04/07/22 05/04/22 tablet,extended release 24 hr Previous Rx's Medication Instructions Recorded albuterol sulfate 90 mcg/actuation 2 inh inhalation QID PRN #1 ea 04/07/22 breath activated powder inhaler losartan 25 mg tablet 12.5 mg PO DAILY #30 tabs 04/07/22 metoprolol succinate 25 mg 12.5 mg PO DAILY #30 tabs 04/07/22 tablet,extended release 24 hr Allergies Allergy/AdvReac Type Severity Reaction Status Date / Time methadone Allergy Severe facial Verified 05/04/22 16:23 swelling General Stated Complaint: DrugWithdr/MAT DAVID: 4 Review of Systems Constitutional Constitutional: Denies chills, Denies fever(s), Denies headache(s), Denies malaise and Denies night sweats ENT Ears, Nose, Mouth, and Throat: Denies headache(s) Cardiovascular Cardiovascular: Denies chest pain, Denies syncope and Denies dyspnea Respiratory Respiratory: Denies cough and Denies dyspnea Gastrointestinal Gastrointestinal: Denies abdominal pain, Denies diarrhea, Denies nausea and Denies vomiting Musculoskeletal Musculoskeletal: Denies joint swelling Integumentary/Breasts Skin/Breast: Denies rash Neurologic Neurologic: Denies behavioral changes, Denies syncope and Denies headache(s) Psychiatric Psychiatric: Reports as per HPI, Denies anxiety, Denies behavioral changes, Reports depression and Denies suicidal ideation PFSH All Active Problems (Updated 05/05/22 @ 00:03 by MUSA HERNÁNDEZ) Pneumonia (Acute) Encounter for drug rehabilitation (Acute) Substance abuse (Acute) Cardiomyopathy (Acute) Hypokalemia (Acute) Hydronephrosis (Chronic) Polysubstance abuse (Acute) No-show for appointment (Acute) Closed right clavicular fracture (Acute 01/18/22) Thrombosed external hemorrhoid (Acute) Opioid abuse (Acute) Obesity, Class II, BMI 35-39.9 (Acute) Internal hemorrhoid (Acute) Medical History Asthma Surgical History No pertinent past surgical history Social History Smoking/Tobacco Use Status: Current every day Tobacco Type: cigarettes Smoking risk assessment performed?: Yes Alcohol Intake: current Alcohol Intake frequency: a few times a week Alcohol type: hard liquor Drug use: Current Sobriety Substance use type: opiates and painkillers Details: sober since od on 04/29/22 Current gender identity: male Do you feel safe at home: Yes (n/a) Do you feel safe in your relationship?: Yes Exam Const General: cooperative, no acute distress and not ill appearing Orientation: alert, awake and oriented x3 HENMT Mouth: moist mucous membranes Resp Effort & Inspection: normal respiratory effort, able to speak in complete sentences and no respiratory distress Auscultation: clear to auscultation bilaterally Cardio Rate: regular rate Rhythm: regular rhythm Heart Sounds: S1 normal and S2 normal Pulses: normal peripheral pulses Skin General skin exam: no rashes or lesions noted Neuro General: patient alert, patient awake, patient oriented x3, moves all extremities and no focal motor deficits Sensory Exam: no sensory deficits noted Course Vital Signs Vital signs: Vital Signs Temperature 37.1 C 05/04/22 16:15 Pulse 106 H 05/04/22 16:15 Respiratory Rate 20 05/04/22 16:15 Blood Pressure 125/95 H 05/04/22 16:15 Pulse Oximetry 99 05/04/22 16:15 Temperature 37.1 C 05/04/22 16:15 Pulse 106 H 05/04/22 16:15 Respiratory Rate 20 05/04/22 16:15 Respiratory Effort Non-Labored 05/04/22 16:18 Respiratory Pattern Normal 05/04/22 16:21 Blood Pressure 125/95 H 05/04/22 16:15 Blood Pressure Position Sitting 05/04/22 16:15 Pulse Oximetry 99 05/04/22 16:15 Oxygen Delivery Method Room Air 05/04/22 16:15 Oxygen Flow Rate 0 05/04/22 16:15 Pain Level 0 05/04/22 16:15 PAWSS Have you Been Recently Intoxicated or Drunk Within the Last 30 days?: No Have you Ever Experienced Previous Episodes of Alcohol Withdrawal?: No Have you ever Experienced Withdrawal Seizures?: Yes Have you ever Experienced Delirium Tremens(DT)s?: No Have you ever undergone Alcohol Rehabilitation Treatment (i.e, inpt ot outpatient treatment programs)?: No Have you ever Experienced Blackouts?: No Have you ever Combined Alcohol with other Downers within the last 90 days?: No Have you ever Combined Alcohol with any other Substance of Abuse during the last 90 days?: No Positive Blood Alcohol level on Presentation? [PCS.BAL]: No Evidence of Increased Autonomic Activity (i.e. HR>120, tremor, sweating, agitation, nausea)?: No Result: 1
== END 2022-05-04 18:26 | disposition home or self-care (01) ==
PROVIDERS: Emergency Provider Nurse Practitioner Family; PCP Physician Assistant
DX: F11.20 Opioid dependence, uncomplicated (principal)
CPT/HCPCS: 99281

== ENCOUNTER 2022-08-02 11:42 | Outpatient (CLI) | payer OTHER, SELFPAY ==
--- NOTE | 2022-08-02 11:30 | DI.RAD_ITS ---
Exam(s) XR CLAVICLE RT EXAM: XR CLAVICLE RT CLINICAL HISTORY: right clavicular fracture f/u. TECHNIQUE: 2D digital imaging was performed. Two images were obtained. AP and axial views were obta ined. COMPARISON: CR,XR XR CLAVICLE RT from 02/26/2022 FINDINGS: BONES: There are stable post operative changes present. No new fracture or dislocation. No fracture line is visualized. JOINTS: The joint spaces are well maintained. No joint effusion is present. SOFT TISSUE: Normal. IMPRESSION: No acute abnormality. DATA REPOSITORY: RADIATION DOSE DELIVERED:
== END 2022-08-02 11:43 | disposition home or self-care (01) ==
LOC: DIORS 11:42
PROVIDERS: PCP Physician Assistant; Referring Provider Physician Assistant; Visit Provider Student in an Organized Health Care Education/Training Program
DX: S42.021D Displaced fracture of shaft of right clavicle, subsequent encounter for fracture with routine healing (principal); X58.XXXD Exposure to other specified factors, subsequent encounter
CPT/HCPCS: 73000

== ENCOUNTER 2022-08-22 01:56 | Outpatient (CLI) | payer MEDICAID, SELFPAY ==
[2022-08-22 15:21] LABS: Abs Immature Grans 0.02 10^3/uL (0.0-0.06); Absolute Basophil Count 0.02 10^3/uL (0.0-0.2); Absolute Eosinophil Count 0.09 10^3/uL (0.0-0.7); Absolute Lymphocyte Count 0.94 10^3/uL (1.2-3.4); Absolute Monocyte Count 0.34 10^3/uL (0.1-0.8); Absolute Neutrophil Count 3.34 10^3/uL (1.2-6.7); Basophils % 0.4; ESR 5 mm/hr (0-15); Eosinophils % 1.9; HCT 38.2 % (40.0-50.0); HGB 13.2 g/dL (13.5-17.5); Immature Grans % 0.4; Lymphocytes % 19.8; MCH 30.9 pg (27.0-33.0); MCHC 34.6 % (32.0-36.0); MCV 90 fL (80-95); MPV 9.8 fL (8.0-11.0); Monocytes % 7.2; Neutrophils % 70.3; Platelet Count 190 10^3/uL (130-400); RBC 4.27 10^6/uL (4.36-5.78); RDW 13.5 % (11.8-14.1); RDW-SD 43.4 fL; WBC 4.75 10^3/uL (4.4-10.8)
[2022-08-22 15:46] LABS: Anion Gap 1.6 mmol/L (3-11); BUN 16 mg/dL (7-18); CO2 32.4 mmol/L (21.0-32.0); CREATININE 0.9 mg/dL (0.70-1.30); Calcium 9.7 mg/dL (8.5-10.1); Chloride 106 mmol/L (98-107); Estimated GFR 114.93 (mL/min/1.73m2); Glucose 109 mg/dL (74-106); Sodium 140 mmol/L (136-145)
[2022-08-22 15:52] LABS: C-Reactive Protein 0.49 mg/dL (0.0-0.3)
== END 2022-08-22 01:57 | disposition home or self-care (01) ==
LOC: LBO 01:56
PROVIDERS: Internal Medicine; PCP Physician Assistant; Visit Provider Student in an Organized Health Care Education/Training Program
DX: S42.001A Fracture of unspecified part of right clavicle, initial encounter for closed fracture (principal); Z87.81 Personal history of (healed) traumatic fracture; Z98.890 Other specified postprocedural states; E87.6 Hypokalemia; Z51.81 Encounter for therapeutic drug level monitoring; X58.XXXA Exposure to other specified factors, initial encounter
CPT/HCPCS: 36415; 80048; 85652; 85025; 86140

== ENCOUNTER 2022-08-29 01:56 | Outpatient (CLI) | payer MEDICAID, SELFPAY ==
--- NOTE | 2022-08-29 08:40 | DI.CT_ITS ---
Exam(s) CT UPPER EXTREMITY RT WO EXAM: CT UPPER EXTREMITY RT WO CLINICAL HISTORY: concern for nonunion,closed rt clavicular fx,[id number]. TECHNIQUE: Imaging Protocol: Axial computed tomography images with coronal and sagittal reformatted images were created and reviewed. COMPARISON: CR XR CLAVICLE RT from 08/02/2022 FINDINGS: Bones: There is a sideplate and screws seen in the mid right clavicle. This does cause artifact royal iting evaluation. There does however appear to be union of the clavicular fracture. The bone appear s intact. No acute fracture is identified. The bone is normally mineralized. Bony alignment is sat isfactory. No cellulitic or osteomyelitic changes are identified. There is no evidence of joint spa ce narrowing or cystic degeneration seen. No lytic or sclerotic lesions are identified. Soft Tissues: The visualized lung laurent are unremarkable. IMPRESSION: Exam limited by orthopedic hardware in the right clavicle but no evidence of nonunion. No acute frac ture or dislocation. RADIATION DOSE DELIVERED: 949.73mGy.cm Total DLP 949.73mGy.cm Total DLP DATA REPOSITORY: All CT scans at this facility are submitted to the National Radiology Data Registry (NRDR) Dose Index Registry (DIR) with the [employer] (ACR). RADIATION OPTIMIZATION: All CT scans at this facility use at least one of these dose optimization te chniques: automated exposure control; mA and/or kV adjustment per patient size (includes targeted exa ms where dose is matched to clinical indication); or iterative reconstruction.
== END 2022-08-29 02:16 ==
PROVIDERS: PCP Physician Assistant; Visit Provider Student in an Organized Health Care Education/Training Program
DX: S42.001A Fracture of unspecified part of right clavicle, initial encounter for closed fracture (principal)
CPT/HCPCS: 73200